=== PATIENT | female | born 1980 | race Caucasian/White ===

== ENCOUNTER 2016-11-07 17:43 | Emergency (ER) | payer SELFPAY ==
[~2016-11-07] VITALS: Ht 167.6 cm; Wt 106.1 kg
[~2016-11-07 17:43] MED LIST: AC500T PO; ACHD5005 PO; DCS100C PO; DULO30CA; HYDR-89 PO; HYDR115S2 PO; HYDROXYZINE; IBP600T1 PO; IBP800T PO; NITR-65 PO; OXYC-12 PO; PRD20T PO; PREN-102 PO; PREN1TAB39; PREN1TAB39 PO; RT-ALBUINH IH; SULF1TAB38 PO; TRAZ50TA67; [UNRECOGNIZED DRUG - OTHER]
--- OUTSIDE RECORDS SUMMARY | 2016-11-07 17:48 | XMS REPORT ---
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
--- OUTSIDE RECORDS SUMMARY | 2016-11-07 17:48 | XMS REPORT ---
Author Author SHIVA LANCE Organization 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 160401623 ALLERGIES Substance Reaction Event Type Date Status Keflex hives Drug Allergy Jan, Active Azithromycin Unknown Drug Allergy Jan, Active Amoxicillin Unknown Drug Allergy Jan, Active Latex Unknown Non Drug Allergy Jan, Active SOCIAL HISTORY No smoking Hx information available PLAN OF CARE Activity Details Follow Up Will call with results for f.u plan Reason: VITAL SIGNS Height 66 in 2016-02-07 Weight 231.0 lbs 2016-02-07 Temperature 98.0 degrees Fahrenheit 2016-02-07 Heart Rate 76 bpm 2016-02-07 Respiratory Rate 18 2016-02-07 BMI 37.28 kg/m2 2016-02-07 Blood pressure systolic 118 mmHg 2016-02-07 Blood pressure diastolic 70 mmHg 2016-02-07 MEDICATIONS Unknown Medications RESULTS Name Result Date Reference Range TEST, URINE (IN HOUSE) 2016-02-07 RESULTS negative Lot # [id number] Control + Exp date 05/2017 PDF Report 2016-02-07 PDF Report1 [facility] PATHOLOGY REPORT 2016-02-07 . . . . Comment: . . . . . PROCEDURES Procedure Date Ordered Related Diagnosis Body Site URINE TEST Feb 07, 2016 ENDOCERV CURETTAGE W/SCOPE Feb 07, 2016 IMMUNIZATIONS No Known Immunizations
--- OUTSIDE RECORDS SUMMARY | 2016-11-07 17:48 | XMS REPORT ---
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 Problem Special screening examination, human papillomavirus [HPV] V73.81 Active Problem 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 and of unspecified site 079.4 Active Problem Screening for iron deficiency anemia V78.0 Active Problem Papanicolaou smear of cervix with high grade squamous intraepithelial lesion (HGSIL) 795.04 Active Problem DTAP TEST V06.1 Active Problem Insufficient care V23.7 Active Problem Unspecified and placental problem affecting management of mother , unspecified as to episode of care 656.90 Active Problem Screening for diabetes mellitus V77.1 Active Problem Diarrhea 787.91 Active Problem Screening examination for venereal disease V74.5 Active Assessment Asthma with acute exacerbation, unspecified asthma severity J45.901 Active Problem Screening for malignant neoplasm of the cervix V76.2 Active Problem Nausea with vomiting 787.01 Active Problem Unspecified vaginitis and vulvovaginitis 616.10 Active Medications Medication Code System Code Instructions Start Date End Date Status Dosage Albuterol Sulfate [facility] [address]-23 (2.5 MG/3ML) 0.083% Inhalation every 4- 6 hours as needed Oct 30, 2015 3 ml Singulair [facility] [address]-19 10 mg Orally Once a day Oct 30, 2015 1 tablet in the evening Albuterol Sulfate HFA [facility] [address]-49 108 (90 Base) MCG/ACT Inhalation every 4 hrs prn Mar 08, 2015 2 puffs as needed Pulmicort Flexhaler [facility] [address]-70 180 MCG/ACT Inhalation Twice a day Oct 30, 2015 1 puff Zyrtec Allergy [facility] [address]-16 10 mg Orally Once a day in AM Oct 30, 2015 1 tablet PredniSONE [facility] [address]-33 10 mg Orally twice a day x 3 days. 3 tablet Procedures Procedure Coding System Code Date NEB/MDI RX INITIAL CPT-4 95720 Oct 30, 2015 Office Visit, Est Pt., Level 3 CPT-4 71717 Oct 30, 2015 MEASURE BLOOD OXYGEN LEVEL CPT-4 75639 Oct 30, 2015 Vital Signs Date/Time: Oct 30, 2015 Cardiac Monitoring Heart Rate 68 bpm Weight 229.8 lbs Height 66 in BMI 37.09 Index Oximetry 97 % Blood Pressure Diastolic 80 mmHg Blood Pressure Systolic 120 mmHg Results Name Result Date Reference Range Unit Abnormality Flag NEBULIZER TREATMENT Summary Purpose [employer] Submission
--- OUTSIDE RECORDS SUMMARY | 2016-11-07 17:48 | XMS REPORT ---
Author Author SHIVA LANCE [facility] [employer] Address Unknown Phone Unavailable Care Team Providers Care Textile Screen Printer Name Role Phone SHIVA LANCE CP Unavailable Allergies, Adverse Reactions, Alerts Substance [...] Problem Screening for diabetes mellitus V77.1 Active Assessment History of abnormal cervical Pap smear Z87.898 Active Problem Diarrhea 787.91 Active Problem Screening examination for venereal disease V74.5 Active Assessment Well woman exam with routine gynecological exam Z01.419 Active Problem Screening for malignant neoplasm of the cervix V76.2 Active Problem Nausea with vomiting 787.01 Active Problem Unspecified vaginitis and vulvovaginitis 616.10 Active Medications Medication Code System Code Instructions Start Date End Date Status Dosage Albuterol Sulfate HFA [facility] [address]-35 108 (90 Base) MCG/ACT Inhalation every 4 hrs prn Mar 08, 2015 2 puffs as needed Singulair [facility] [address]-63 10 mg Orally Once a day Oct 30, 2015 1 tablet in the evening Procedures Procedure Coding System Code Date Preventive Care Est Pt. Age 18-39 CPT-4 06766 Dec 06, 2015 Vital Signs Date/Time: Dec 06, 2015 Cardiac Monitoring Heart Rate 82 bpm Weight 226 lbs Height 66 in BMI 36.47 Index Blood Pressure Diastolic 70 mmHg Blood Pressure Systolic 108 mmHg Results No Known Results Summary Purpose [employer] Submission
--- OUTSIDE RECORDS SUMMARY | 2016-11-07 17:48 | XMS REPORT ---
Author Author SHIVA LANCE [facility] [employer] Address Unknown Phone Unavailable Care Team Providers Care Wireline Supervisor Name Role Phone SHIVA LANCE CP Unavailable [...] examination for venereal disease V74.5 Active Assessment Contact dermatitis, unspecified contact dermatitis type, unspecified trigger L25.9 Active Problem Screening for malignant neoplasm of the cervix V76.2 Active Problem Nausea with vomiting 787.01 Active Problem Unspecified vaginitis and vulvovaginitis 616.10 Active Medications Medication Code System Code Instructions Start Date End Date Status Dosage PredniSONE [facility] [address]-14 20 MG Orally Once a day Nov 22, 2015 Nov 27, 2015 2 tablet Albuterol Sulfate HFA [facility] [address]-64 108 (90 Base) MCG/ACT Inhalation every 4 hrs prn Mar 08, 2015 2 puffs as needed Singulair [facility] [address]-99 10 mg Orally Once a day Oct 30, 2015 1 tablet in the evening Procedures Procedure Coding System Code Date Office Visit, Est Pt., Level 3 CPT-4 53088 Nov 22, 2015 Vital Signs Date/Time: Nov 22, 2015 Cardiac Monitoring Heart Rate 90 bpm Weight 231 lbs Height 66 in BMI 37.28 Index Blood Pressure Diastolic 80 mmHg Blood Pressure Systolic 114 mmHg Results No Known Results Summary Purpose [employer] Submission
--- OUTSIDE RECORDS SUMMARY | 2016-11-07 17:48 | XMS REPORT ---
Author Author REYNA FIGUEROA [facility] [employer] Address Unknown Phone Unavailable Care Team Providers Care Tower Supervisor Name Role Phone REYNA FIGUEROA CP Unavailable Allergies, Adverse Reactions, Alerts Substance Reaction Event Type Azithromycin Info Not Available Drug Allergy Amoxicillin [...] Screening for diabetes mellitus V77.1 Active Assessment Upper respiratory tract infection, unspecified upper respiratory infection J06.9 Active Assessment Acute mucoid otitis media of both ears H65.113 Active Problem Diarrhea 787.91 Active Problem Screening examination for venereal disease V74.5 Active Assessment Irregular menses N92.6 Active Problem Screening for malignant neoplasm of the cervix V76.2 Active Problem Nausea with vomiting 787.01 Active Problem Unspecified vaginitis and vulvovaginitis 616.10 Active Medications Medication Code System Code Instructions Start Date End Date Status Dosage Doxycycline Hyclate [facility] [address]-05 100 MG Orally every 12 hrs Nov 25, 2014 Dec 09, 2014 1 capsule Promethazine-Codeine [facility] [address]-23 6.25-10 MG/5ML Orally every 6 hrs Nov 25, 2014 5 ml as needed Procedures Procedure Coding System Code Date Office Visit, Est Pt., Level 3 CPT-4 47210 Nov 25, 2014 URINE TEST CPT-4 30121 Nov 25, 2014 Vital Signs Date/Time: Nov 25, 2014 Temperature 98.0 F Weight 246.1 lbs Height 66 in BMI 39.72 Index Blood Pressure Diastolic 84 mmHg Blood Pressure Systolic 120 mmHg Cardiac Monitoring Heart Rate 90 bpm Results No Known Results Summary Purpose [employer] Submission
[2016-11-07 18:47] LABS: BILIRUBIN,URINE NEGATIVE (NEGATIVE); KETONES,URINE NEGATIVE (NEGATIVE); LEUKOCYTE ESTERASE ,URINE 2+ (NEGATIVE); NITRITE,URINE NEGATIVE (NEGATIVE); PH,URINE 5 (5-9); PROTEIN,URINE 1+ (NEGATIVE); UROBILINOGEN,URINE 1 MG/DL (NORMAL)
[2016-11-07 18:58] LABS: SQUAMOUS EPITHELIAL CELL,UR 25-50 /HPF
--- NOTE | 2016-11-07 20:01 | ED GU-Female ---
General Chief Complaint: Abdominal/GI Problems Stated Complaint: STOMACH PAIN Nursing Triage Note: Pt c/o lower abd pain and nausea x4 hours Nursing Sepsis Screen: No Definite Risk Source: patient Exam Limitations: no limitations History of Present Illness Time seen by provider: 20:01 Initial Comments 36 yo female patient presents to the ED with c/o lower abdominal pain and nausea for 4 hours. Patient states she had a positive test a while back, but states she thought this was related to her thyroid function in the abnormal. Does c/o frequency of urine. Timing/Duration: this afternoon Severity/Quality: cramping Location: suprapubic Radiation: none Activities at Onset: none Prior Genitourinary Problems: similar symptoms Modifying Factors: Worsens With Eating, Worsens With Urinating Allergies and Home Medications Allergies Coded Allergies: amoxicillin (Verified Allergy, Unknown, 08/20/05) cephalexin (Verified Allergy, Unknown, 08/20/05) latex (Verified Allergy, Unknown, 05/31/07) Home Medications Albuterol Sulfate 6.7 Gm Hfa.aer.ad, 6.7 GM IH Q4H PRN for COUGH/DYSPNEA, #1 Ref 0 Prescribed by: LINDA FOX on 10/23/152303 Hydrocodone/Chlorphen P-Stirex 480 Ml [place].er.12h, 5 ML PO Q12H PRN for COUGH, # 120 Ref 0 Prescribed by: LINDA FOX on 10/23/15 230 Nitrofurantoin Monohyd/M-Cryst 100 Mg Capsule, 1 TAB PO BID, #14 Ref 0 Prescribed by: SARAH CASAREZ on 11/07/162130 Prednisone 20 Mg Tab, 30 MG PO BID for 5 Days, Ref 0 Prescribed by: LINDA FOX on 10/23/15 2304 Vits #93/Iron Fum/Fa 1 Each Tablet, 1 EACH PO, (Reported) Constitutional: No chills, No dizziness, No fever, No malaise EENTM: no symptoms reported Respiratory: No cough, No dyspnea on exertion, No short of breath Cardiovascular: No chest pain, No palpitations, No syncope Gastrointestinal: abdominal pain, No constipation, No diarrhea, nausea, No vomiting Genitourinary: denies burning, denies discharge, denies dysuria, frequency, denies flank pain, denies hematuria, denies other (denies vaginal bleeding) Musculoskeletal: No back pain Skin: no symptoms reported Psychiatric/Neurological: No Symptoms Reported All Other Systemes Reviewed Negative Unless Noted: Yes (Negative excepted noted.) Past [id number]-[id number] Hx Patient Social History Type Used: Cigarettes Recent Foreign Travel: No Contact w/Someone Who Travel: No Recent Infectious Disease Expo: No Recent Hopitalizations: No Immunizations Up To Date Tetanus Booster (TDap): Less than 5yrs PED Vaccines UTD: Yes Seasonal Allergies Seasonal Allergies: No Surgeries History of Surgeries: Yes Respiratory History of Respiratory Disorde: Yes Respiratory Disorders: Asthma Cardiovascular History of Cardiac Disorders: No Neurological History of Neurological Disord: No Reproductive System Hx Reproductive Disorders: No Sexually Transmitted Disease: No Genitourinary History of Genitourinary Disor: No Gastrointestinal History of Gastrointestinal Di: No Musculoskeletal History of Musculoskeletal Dis: No Endocrine History of Endocrine Disorders: No Blood Transfusions Adverse Reaction to a Blood Tr: No Reviewed Nursing Assessment Reviewed/Agree w Nursing PMH: Yes Family Medical History Significant Family History: No Pertinent Family Hx Family Medial History: Cancer (breast cancer- fathers side) Family history: Cardiovascular disease (paternal grandfather) Stroke (maternal grandfather) Physical Exam Vital Signs Vital Sign - Last 12Hours 11/07/16 18:30 Temp 98.9 Pulse 88 Resp 18 B/P (MAP) 125/64 Pulse Ox 98 O2 Delivery Room Air Capillary Refill : Less Than 3 Seconds General Appearance: WD/WN, no apparent distress HEENT: PERRL/EOMI, pharynx normal Neck: supple, normal inspection Cardiovascular: normal peripheral pulses, regular rate, rhythm, no edema, no murmur Respiratory: lungs clear, normal breath sounds, no respiratory distress, no accessory muscle use Gastrointestinal: normal bowel sounds, soft, no organomegaly, No distended, No guarding, No rebound, tenderness (lower abdominal tenderness.) Back: normal inspection, no CVA tenderness Extremities: no pedal edema, no calf tenderness, normal capillary refill Neurologic/Psychiatric: alert, normal mood/affect, oriented x 3 Skin: normal color, warm/dry Progress/Results/Core Measures Results/Orders Lab Results My Orders Vital Signs/I&O Blood Pressure Mean: 84 Departure Communication (Admissions) Progress Notes Laboratory findings discussed with the patient. heart tones 140. Plan for discharge to home with oral antibiotics. Patient instructed to contact Dr. Artis's office for scheduling an appointment time to establish care. All return precautions were discussed with the patient as described in the discharge instructions of this report. Patient voices understanding and agrees with the treatment plan. Impression Impression: Primary Impression: Urinary tract infection Qualified Codes: N30.00 - Acute cystitis without hematuria Additional Impressions: Lower abdominal pain Positive test Disposition: HOME, SELF-CARE Condition: Improved Departure-Patient Inst. Decision time for Depature: 21:30 Referrals: SHIVA LANCE MD (PCP/Family) Primary Care Physician ALESSIO ARTIS DO Patient Instructions: How to Plan and Prepare for a Healthy , Urinary Tract Infection, Adult (DC), Acute Abdomen (Belly Pain), Adult (DC) Add. Discharge Instructions: All discharge instructions reviewed with patient and/or family. Voiced understanding. Medications as instructed. Tylenol Extra Strength over-the- counter as directed for pain. Drink plenty of fluids. Follow-up with Dr. Artis as an outpatient for a recheck and to establish care. Follow-up with Dr. Fox is an outpatient. Call for appointment time Thursday. Return to the emergency department for worsened pain, vomiting, fever, vaginal bleeding with greater than 2 pads per hour for greater than 2 hours, vaginal discharge, or any other concerns. Scripts Nitrofurantoin Monohyd/M-Cryst (Macrobid 100 mg Capsule) 100 Mg Capsule 1 TAB PO BID, #14 CAP 0 Refills Prov: SARAH CASAREZ 11/07/16 SARAH CASAREZ Nov 07, 2016 20:01
[2016-11-07 20:16] LABS: BASOPHILS % (AUTO) 1 % (0-10); EOSINOPHILS # (AUTO) 0.2 10^3/uL (0.0-0.3); EOSINOPHILS % (AUTO) 3 % (0-10); LYMPHOCYTES # (AUTO) 1.8 X 10^3 (1.0-4.0); LYMPHOCYTES % (AUTO) 29 % (12-44); MEAN CORPUSCULAR HEMOGLOBIN 29 PG (25-34); MEAN CORPUSCULAR HGB CONC 33 G/DL (32-36); MEAN CORPUSCULAR VOLUME 87 FL (80-99); MEAN PLATELET VOLUME 10.8 FL (7.4-10.4); MONOCYTES # (AUTO) 0.6 X 10^3 (0.0-1.0); MONOCYTES % (AUTO) 9 % (0-12); NEUTROPHILS # (AUTO) 3.7 X 10^3 (1.8-7.8); NEUTROPHILS % (AUTO) 60 % (42-75); PLATELET COUNT 267 10^3/uL (130-400); RED BLOOD COUNT 4.54 10^6/uL (4.35-5.85); RED CELL DISTRIBUTION WIDTH 14.2 % (10.0-14.5); WHITE BLOOD COUNT 6.3 10^3/uL (4.3-11.0)
[2016-11-07 20:28] LABS: ALANINE AMINOTRANSFERASE 21 U/L (0-55); ALBUMIN 3.7 GM/DL (3.2-4.5); ANION GAP 9 MMOL/L (5-14); ASPARTATE AMINO TRANSFERASE 16 U/L (5-34); BILIRUBIN,TOTAL 0.2 MG/DL (0.1-1.0); BLOOD UREA NITROGEN 8 MG/DL (7-18); BUN/CREATININE RATIO 12; CALCIUM 8.9 MG/DL (8.5-10.1); CARBON DIOXIDE 21 MMOL/L (21-32); CHLORIDE 107 MMOL/L (98-107); CREATININE SERUM 0.68 MG/DL (0.60-1.30); GFR ESTIMATED > 60; GLUCOSE 78 MG/DL (70-105); POTASSIUM 4.2 MMOL/L (3.6-5.0); SODIUM 137 MMOL/L (135-145); TOTAL PROTEIN 6.9 GM/DL (6.4-8.2)
[2016-11-07] MEDS ORDERED: NITR-65 PO (21:31)
[2016-11-07] MEDS ORDERED: ACETAMINOPHEN 500 MG TAB (TYLENOL) PO STA (21:32)
[2016-11-07] MEDS ORDERED: RX-NITROFURANTOIN 100 MG (MACROBID) CAP PPK#2 PO STA (21:32)
[2016-11-07 21:41] VITALS: BP 121/68
== END 2016-11-07 21:41 | disposition home or self-care (01) ==
LOC: EDUNIT# 17:43 → ER 17:44
DX: O23.40 Unspecified infection of urinary tract in pregnancy, unspecified trimester (principal); O99.519 Diseases of the respiratory system complicating pregnancy, unspecified trimester; J45.909 Unspecified asthma, uncomplicated
CPT/HCPCS: 36415; 80053; 81000; 84443; 84702; 84703; 85025; 87088; 99283

== ENCOUNTER 2016-11-16 17:58 | Emergency (ER) | payer MEDICAID, OTHER ==
[~2016-11-16] VITALS: Ht 167.6 cm; Wt 106.3 kg
--- NOTE | 2016-11-16 19:01 | ED General ---
General Chief Complaint: General Problems/Pain Stated Complaint: 12 WKS PREG/FALL/HEAD INJ Nursing Triage Note: PT SO REPORTS THAT PT WAS TAKING A NAP AND WHEN SHE WOKE UP SHE WAS "INCOHERENT". HE STATES SHE THEN GOT UP TO GO TO THE BATHROOM WHEN HE HEARD A LOUD NOISE. HE WENT TO THE BATHROOM AND HE REPORTS PT WAS ON THE FLOOR. HE STATES THAT SINCE THEN PT CONTINUES TO BE "INCOHERENT". PT STANDS FROM WHEELCHAIR AND GETS IN BED. PT IS A&O X 4, BUT REFUSES TO SPEAK TO THIS RN. SO ALSO REPORTS PT TO BE APPROX 12 WEEKS . Nursing Sepsis Screen: No Definite Risk Source of Information: Patient Exam Limitations: No Limitations History of Present Illness Time Seen by Provider: 18:45 Initial Comments Here with report of waking up feeling bad and actually states that she's had sore throat for 3 days. Apparently after she got up she went to the bathroom and then may have passed out. The significant other states that he heard a loud sound and went to the bathroom and found her lying on the floor. She complains of left posterior head pain, sore throat and lower abdominal pain. She initially did not want to talk but was redirected into talking and participating in the evaluation. Patient's main complaint of sore throat now. This is her 10th per report. Denies vaginal discharge or bleeding. Timing/Duration: 2-3 Days, Changing Over Time Severity: Moderate Associated Systoms: No Chest Pain, No Cough, No Fever/Chills, No Nausea/ Vomiting, No Shortness of Air, Syncope, Weakness Allergies and Home Medications Allergies Coded Allergies: amoxicillin (Verified Allergy, Unknown, 08/20/05) cephalexin (Verified Allergy, Unknown, 08/20/05) latex (Verified Allergy, Unknown, 05/31/07) Home Medications Albuterol Sulfate 6.7 Gm Hfa.aer.ad, 6.7 GM IH Q4H PRN for COUGH/DYSPNEA, #1 Ref 0 Prescribed by: LINDA JOY on 10/23/15 2304 Hydrocodone/Chlorphen P-Stirex 480 Ml [place].er.12h, 5 ML PO Q12H PRN for COUGH, # 120 Ref 0 Prescribed by: LINDA JOY on 10/23/15 2305 Nitrofurantoin Monohyd/M-Cryst 100 Mg Capsule, 1 TAB PO BID, #14 Ref 0 Prescribed by: SARAH CASAREZ on 11/07/162130 Prednisone 20 Mg Tab, 30 MG PO BID for 5 Days, Ref 0 Prescribed by: LINDA JOY on 10/23/15 2304 Vits #93/Iron Fum/Fa 1 Each Tablet, 1 EACH PO, (Reported) Constitutional: see HPI, No chills, No fever EENTM: nose congestion, throat pain Respiratory: no symptoms reported Cardiovascular: no symptoms reported Gastrointestinal: abdominal pain (LLQ), No nausea, No vomiting Genitourinary: no symptoms reported, No dysuria, No pain Musculoskeletal: no symptoms reported Skin: no symptoms reported Psychiatric/Neurological: See HPI, Headache, Weakness Hematologic/Lymphatic: No Symptoms Reported All Other Systems Reviewed Negative Unless Noted: Yes Past Uwnyxmo-Vhmzrj-Isshob Hx Patient Social History Alcohol Use: Denies Use Recreational Drug Use: No Smoking Status: Current Everyday Smoker Type Used: Cigarettes Recent Foreign Travel: No Contact w/Someone Who Travel: No Recent Infectious Disease Expo: No Recent Hopitalizations: No Physical Abuse: No Sexual Abuse: No Immunizations Up To Date Tetanus Booster (TDap): Less than 5yrs PED Vaccines UTD: Yes Seasonal Allergies Seasonal Allergies: No Surgeries History of Surgeries: Yes ("KIDNEY") Respiratory History of Respiratory Disorde: Yes Respiratory Disorders: Asthma Cardiovascular History of Cardiac Disorders: No Neurological History of Neurological Disord: No Reproductive System Hx Reproductive Disorders: No Sexually Transmitted Disease: No Genitourinary History of Genitourinary Disor: No Gastrointestinal History of Gastrointestinal Di: No Musculoskeletal History of Musculoskeletal Dis: No Endocrine History of Endocrine Disorders: No Cancer History of Cancer: No Psychosocial History of Psychiatric Problem: No Suicide Risk Score: 0 Blood Transfusions History of Blood Disorders: No Adverse Reaction to a Blood Tr: No Reviewed Nursing Assessment Reviewed/Agree w Nursing PMH: Yes Family Medical History Significant Family History: No Pertinent Family Hx Family Medial History: Cancer (breast cancer- fathers side) Family history: Cardiovascular disease (paternal grandfather) Stroke (maternal grandfather) Physical Exam Vital Signs Vital Sign - Last 12Hours 11/16/16 18:23 Temp 97.1 Pulse 88 Resp 16 B/P (MAP) 123/76 Pulse Ox 99 O2 Delivery Room Air Capillary Refill : Less Than 3 Seconds General Appearance: No Apparent Distress, WD/WN HEENT: PERRL/EOMI, Pharyngeal Erythema, No Tonsillar Exudate, Other (no scalp hematoma or abrasion noted.) Neck: Non Tender, Supple Respiratory: Lungs Clear, Normal Breath Sounds Cardiovascular: Regular Rate, Rhythm, No Murmur Gastrointestinal: Non Tender, Soft Back: Normal Inspection, No CVA Tenderness, No Vertebral Tenderness Extremity: Non Tender, No Calf Tenderness Neurologic/Psychiatric: Alert, Oriented x3, No Motor/Sensory Deficits Skin: Normal Color, Warm/Dry Progress/Results/Core Measures Results/Orders Lab Results Laboratory Tests Test 11/16/16 18:56 11/16/16 19:00 11/16/16 19:10 Range/Units Group A Streptococcus Screen NEGATIVE NEGATIVE Urine Color YELLOW Urine Clarity CLEAR Urine pH 7 5-9 Urine Specific [place] 1.015 L 1.016-1.022 Urine Protein NEGATIVE NEGATIVE Urine Glucose (UA) NEGATIVE NEGATIVE Urine Ketones NEGATIVE NEGATIVE Urine Nitrite NEGATIVE NEGATIVE Urine Bilirubin NEGATIVE NEGATIVE Urine Urobilinogen NORMAL NORMAL MG/DL Urine Leukocyte Esterase 1+ H NEGATIVE Urine RBC (Auto) NEGATIVE NEGATIVE Urine RBC NONE /HPF Urine WBC 2-5 /HPF Urine Squamous Epithelial Cells 25-50 H /HPF Urine Crystals NONE /LPF Urine Bacteria MODERATE H /HPF Urine Casts NONE /LPF Urine Mucus NEGATIVE /LPF Urine Culture Indicated NO White Blood Count 6.7 4.3-11.0 10^3/uL Red Blood Count 4.64 4.35-5.85 10^6/uL Hemoglobin 13.3 11.5-16.0 G/DL Hematocrit 40 35-52 % Mean Corpuscular Volume 86 80-99 FL Mean Corpuscular Hemoglobin 29 25-34 PG Mean Corpuscular Hemoglobin Concent 33 32-36 G/DL Red Cell Distribution Width 14.3 10.0-14.5 % Platelet Count 275 130-400 10^3/uL Mean Platelet Volume 10.3 7.4-10.4 FL Neutrophils (%) (Auto) 66 42-75 % Lymphocytes (%) (Auto) 25 12-44 % Monocytes (%) (Auto) 7 0-12 % Eosinophils (%) (Auto) 3 0-10 % Basophils (%) (Auto) 0 0-10 % Neutrophils # (Auto) 4.4 1.8-7.8 X 10^3 Lymphocytes # (Auto) 1.7 1.0-4.0 X 10^3 Monocytes # (Auto) 0.5 0.0-1.0 X 10^3 Eosinophils # (Auto) 0.2 0.0-0.3 10^3/uL Basophils # (Auto) 0.0 0.0-0.1 10^3/uL Sodium Level 138 135-145 MMOL/L Potassium Level 3.8 3.6-5.0 MMOL/L Chloride Level 107 98-107 MMOL/L Carbon Dioxide Level 20 L 21-32 MMOL/L Anion Gap 11 5-14 MMOL/L Blood Urea Nitrogen 7 7-18 MG/DL Creatinine 0.66 0.60-1.30 MG/DL Estimat Glomerular Filtration Rate > 60 BUN/Creatinine Ratio 11 Glucose Level 83 70-105 MG/DL Calcium Level 9.3 8.5-10.1 MG/DL Total Bilirubin 0.2 0.1-1.0 MG/DL Aspartate Amino Transf (AST/SGOT) 17 5-34 U/L Alanine Aminotransferase (ALT/SGPT) 21 0-55 U/L Alkaline Phosphatase 68 40-136 U/L Total Protein 7.0 6.4-8.2 GM/DL Albumin 3.7 3.2-4.5 GM/DL My Orders Orders - LEROY WHITE MD Cbc With Automated Diff (11/16/16 18:59) Comprehensive Metabolic Panel (11/16/16 18:59) Rapid Strep A Screen (11/16/16 18:59) Ua Culture If Indicated (11/16/16 18:59) Vital Signs/I&O Vital Sign - Last 12Hours 11/16/16 18:23 Temp 97.1 Pulse 88 Resp 16 B/P (MAP) 123/76 Pulse Ox 99 O2 Delivery Room Air Blood Pressure Mean: 92 Progress Note : Progress Note Seen and evaluated. Lab draw done. Rapid strep and UA ordered. Bedside ultrasound performed by me which shows fetus with positive movement and heart rate of 165 and approximately 13-2/7 via femur length. There is a lot of movement which limited measurement. Dates are close to patient's stated via last menstrual period. Monitor patient. 1944: Overall there is no acute findings on any of the evaluation data. She is doing much better now. The believes she probably has a viral URI. Supportive care indicated. This was discussed with the patient and family. Discharged home with return precautions. Patient verbalize understanding instructions and agreement with plan. Departure Impression Impression: Primary Impression: Upper respiratory infection Qualified Codes: J06.9 - Acute upper respiratory infection, unspecified Additional Impression: Syncope Qualified Codes: R55 - Syncope and collapse Disposition: HOME, SELF-CARE Condition: Improved Departure-Patient Inst. Referrals: ALESSIO ARTIS DO (PCP) Primary Care Physician SHIVA LANCE MD (Family) Primary Care Physician Patient Instructions: Viral Pharyngitis (DC), Viral Upper Respiratory Infection, Child (DC) Add. Discharge Instructions: All discharge instructions reviewed with patient and/or family. Voiced understanding. Drink plenty of fluids. You may take Tylenol 1000 mg every 8 hours as needed for pain. You may take Benadryl 25 mg every 6 hours as needed for nasal congestion. Follow-up with Dr. Artis in one to 2 days for recheck and further evaluation. Return for worse pain, fever, vomiting, weakness, breathing problems or other concerns as needed. Copy Copies To 1: ALESSIO ARTIS TIMOTHY D MD Nov 16, 2016 19:01
[2016-11-16 19:20] LABS: BILIRUBIN,URINE NEGATIVE (NEGATIVE); KETONES,URINE NEGATIVE (NEGATIVE); LEUKOCYTE ESTERASE ,URINE 1+ (NEGATIVE); NITRITE,URINE NEGATIVE (NEGATIVE); PH,URINE 7 (5-9); PROTEIN,URINE NEGATIVE (NEGATIVE); UROBILINOGEN,URINE NORMAL (NORMAL)
[2016-11-16 19:21] LABS: BASOPHILS % (AUTO) 0 % (0-10); EOSINOPHILS # (AUTO) 0.2 10^3/uL (0.0-0.3); EOSINOPHILS % (AUTO) 3 % (0-10); LYMPHOCYTES # (AUTO) 1.7 X 10^3 (1.0-4.0); LYMPHOCYTES % (AUTO) 25 % (12-44); MEAN CORPUSCULAR HEMOGLOBIN 29 PG (25-34); MEAN CORPUSCULAR HGB CONC 33 G/DL (32-36); MEAN CORPUSCULAR VOLUME 86 FL (80-99); MEAN PLATELET VOLUME 10.3 FL (7.4-10.4); MONOCYTES # (AUTO) 0.5 X 10^3 (0.0-1.0); MONOCYTES % (AUTO) 7 % (0-12); NEUTROPHILS # (AUTO) 4.4 X 10^3 (1.8-7.8); NEUTROPHILS % (AUTO) 66 % (42-75); PLATELET COUNT 275 10^3/uL (130-400); RED BLOOD COUNT 4.64 10^6/uL (4.35-5.85); RED CELL DISTRIBUTION WIDTH 14.3 % (10.0-14.5); WHITE BLOOD COUNT 6.7 10^3/uL (4.3-11.0)
[2016-11-16 19:33] LABS: SQUAMOUS EPITHELIAL CELL,UR 25-50 /HPF
[2016-11-16 19:39] LABS: ALANINE AMINOTRANSFERASE 21 U/L (0-55); ALBUMIN 3.7 GM/DL (3.2-4.5); ANION GAP 11 MMOL/L (5-14); ASPARTATE AMINO TRANSFERASE 17 U/L (5-34); BILIRUBIN,TOTAL 0.2 MG/DL (0.1-1.0); BLOOD UREA NITROGEN 7 MG/DL (7-18); BUN/CREATININE RATIO 11; CALCIUM 9.3 MG/DL (8.5-10.1); CARBON DIOXIDE 20 MMOL/L (21-32); CHLORIDE 107 MMOL/L (98-107); CREATININE SERUM 0.66 MG/DL (0.60-1.30); GFR ESTIMATED > 60; GLUCOSE 83 MG/DL (70-105); POTASSIUM 3.8 MMOL/L (3.6-5.0); SODIUM 138 MMOL/L (135-145)
[2016-11-16 19:57] VITALS: BP 129/78
== END 2016-11-16 19:57 | disposition home or self-care (01) ==
LOC: EDUNIT# 17:58 → ER 18:00
DX: O99.511 Diseases of the respiratory system complicating pregnancy, first trimester (principal); J06.9 Acute upper respiratory infection, unspecified; J45.909 Unspecified asthma, uncomplicated; O26.891 Other specified pregnancy related conditions, first trimester; R55 Syncope and collapse; O99.331 Smoking (tobacco) complicating pregnancy, first trimester; F17.210 Nicotine dependence, cigarettes, uncomplicated; Z80.3 Family history of malignant neoplasm of breast; Z3A.12 12 weeks gestation of pregnancy
CPT/HCPCS: 36415; 80053; 81000; 85025; 87430; 99283

== ENCOUNTER → 2017-01-19 | Outpatient (CLI) | payer MEDICAID ==
--- NOTE | 2017-01-19 19:12 | Diagnostic Imaging Report ---
INDICATION: survey. TECHNIQUE: Multiple real-time grayscale images were obtained over the gravid uterus. COMPARISON: None during this . FINDINGS: heart rate is 144 beats per minute. The cervix is closed and is 4.7 cm in length. The placenta is anterior. No placenta previa. The amniotic fluid appears adequate. The maternal adnexa are obscured by the gravid uterus. evaluation demonstrates 2 umbilical arteries, the bladder, cord insertion, the kidneys and the stomach. The spine, intracranial structures and four-chamber view are not well evaluated. Biometrical measurements are as follows: Biparietal 4.7 cm, age 20 weeks 2 days, at the 3rd percentile. Head circumference 17.63 cm, age 20 weeks 1 days, less than 2nd percentile. Abdominal circumference 15.35 cm, age 20 weeks 4 days, at the 9th percentile. Femur length 3.32 cm, age 20 weeks 3 days, at 5th percentile. This is based on dating utilizing assigned ÁNGEL of 05/26/17. Sonographic estimate age: 20 weeks 3 days. Sonographic estimated date of delivery: 06-05-17. Estimated Weight: 353 gm (+/- 52 gm). LMP percentile: 3%. heart rate: 144 beats per minute. number: 1 of 1. IMPRESSION: 1. Incomplete survey with poor visualization of the intracranial structures, spine, and four-chamber view on the current exam. Followup is recommended. 2. The growth parameters are near the lower limits of normal based on gestational age utilizing the assigned ÁNGEL of 05/26/17. Dictated by: Dictated on workstation # [id number]
== END ==
LOC: RAD 11:51
PROVIDERS: ATTEND Obstetrics & Gynecology
DX: Z34.92 Encounter for supervision of normal pregnancy, unspecified, second trimester (principal); Z3A.20 20 weeks gestation of pregnancy
CPT/HCPCS: 76805

== ENCOUNTER 2017-01-23 00:21 | Emergency (ER) | payer MEDICAID ==
[~2017-01-23] VITALS: Ht 167.6 cm; Wt 112.5 kg
[~2017-01-23 00:21] MED LIST changes: -LEVO25TA2 PO
--- OUTSIDE RECORDS SUMMARY | 2017-01-23 00:30 | XMS REPORT | Continuity of Care Document ---
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 ANASTASIIA, RUTH ANN A [employer] BOAR[employer] LAMINATOR Ot 641.03 PLACENTA PREVIA-ANTEPART 12/27/2015 THERESE LI DO Ot 641.13 PLACEN PREV HEM-ANTEPART 12/27/2015 THERESE LI DO Ot V23.5 PREG W POOR REPRODUCT HX 12/27/2015 THERESE LI DO Ot V77.1 SCREEN-DIABETES MELLITUS 12/27/2015 THERESE LI DO Ot V78.0 SCREEN-IRON DEFIC ANEMIA 12/28/2015 Ot 640.03 THREATEN ABORT-ANTEPART 12/28/2015 Ot 648.93 OTH CURR COND-ANTEPARTUM 12/28/2015 Ot 959.12 OTH INJURY OF ABDOMEN 12/28/2015 Ot E000.8 OTHER EXTERNAL CAUSE STATUS 12/28/2015 Ot E030 UNSPECIFIED ACTIVITY 12/28/2015 Ot E849.0 ACCIDENT IN HOME 12/28/2015 Ot E885.9 FALL FROM SLIPPING, TRIPPING, OR STUMBLI 12/28/2015 Ot 518.89 OTHER DISEASES OF LUNG, NEC 12/28/2015 Ot 620.2 OVARIAN CYST NEC/NOS 12/28/2015 Ot 789.00 ABDOMINAL PAIN, UNSPECIFIED SITE 12/28/2015 SHIVA LANCE MD Ot R10.30 LOWER ABDOMINAL PAIN, UNSPECIFIED 12/28/2015 SHIVA LANCE MD Ot R10.30 LOWER ABDOMINAL PAIN, UNSPECIFIED 01/02/2016 SHIVA LANCE MD Ot R10.30 LOWER ABDOMINAL PAIN, UNSPECIFIED 01/11/2016 Ot V22.1 SUPERVIS OTH NORMAL PREG 01/11/2016 Ot V22.1 SUPERVIS OTH NORMAL PREG 01/11/2016 THERESE LI DO Ot V23.3 GRAND MULTIPARITY 01/11/2016 THERESE LI DO Ot V28.89 OTHER SPECIFIED SCREENING 01/11/2016 RUTH ANN LAURENT APRN Ot 641.03 PLACENTA PREVIA-ANTEPART 01/11/2016 THERESE LI DO Ot 641.13 PLACEN PREV HEM-ANTEPART 01/11/2016 THERESE LI DO Ot V23.5 PREG W POOR REPRODUCT HX 01/11/2016 THERESE LI DO Ot V77.1 SCREEN-DIABETES MELLITUS 01/11/2016 THERESE LI DO Ot V78.0 SCREEN-IRON DEFIC ANEMIA 01/11/2016 CASI LEY, SHIVA Forrest Ot R10.30 LOWER ABDOMINAL PAIN, UNSPECIFIED 01/11/2016 SUNDAR GEORGE APRN Ot N20.0 CALCULUS OF KIDNEY 01/11/2016 SUNDAR GEORGE APRN Ot R10.31 RIGHT LOWER QUADRANT PAIN 01/14/2016 SUNDAR GEORGE APRN Ot N20.0 CALCULUS OF KIDNEY 01/14/2016 SUNDAR GEORGE APRN Ot R10.31 RIGHT LOWER QUADRANT PAIN 01/21/2016 CASI LEY, SHIVA Forrest Ot R10.30 LOWER ABDOMINAL PAIN, UNSPECIFIED 01/22/2016 Ot 644.03 THRT GLORIA LABOR-ANTEPART 01/29/2016 Ot 285.9 ANEMIA NOS 01/29/2016 Ot 705.83 HIDRADENITIS 01/29/2016 Ot V72.63 PRE- PROCEDURAL LABORATORY EXAMINATION 01/29/2016 Ot V74.8 SCREEN- BACTERIAL DIS NEC 01/29/2016 Ot V22.1 SUPERVIS OTH NORMAL PREG 01/29/2016 Ot V22.1 SUPERVIS OTH NORMAL PREG 01/29/2016 THERESE LI DO Ot V23.3 GRAND MULTIPARITY 01/29/2016 THERESE LI DO Ot V28.89 OTHER SPECIFIED SCREENING 01/29/2016 RUTH ANN LAURENT [employer]AR[employer] LAMINATOR Ot 641.03 PLACENTA PREVIA-ANTEPART 01/29/2016 THERESE LI DO Ot 641.13 PLACEN PREV HEM-ANTEPART 01/29/2016 THERESE LI DO Ot V23.5 PREG W POOR REPRODUCT HX 01/29/2016 THERESE LI DO Ot V77.1 SCREEN-DIABETES MELLITUS 01/29/2016 LI DO, THERESE K Ot V78.0 SCREEN-IRON DEFIC ANEMIA 01/29/2016 CASI LEY, SHIVA R Ot R10.30 LOWER ABDOMINAL PAIN, UNSPECIFIED 01/29/2016 CASI LEY, SHIVA R Ot R10.30 LOWER ABDOMINAL PAIN, UNSPECIFIED 11/07/2016 SHIVA LANCE MD Ot R10.30 LOWER ABDOMINAL PAIN, UNSPECIFIED 11/07/2016 SARAH RASHEED Ot J45.909 UNSPECIFIED ASTHMA, UNCOMPLICATED 11/07/2016 SARAH RASHEED Ot O23.40 UNSP INFECTION OF URINARY TRACT IN PREGN 11/07/2016 SARHA RASHEED Ot O99.519 DISEASES OF THE RESP SYS COMP , 11/07/2016 SARAH RASHEED Ot R10.30 LOWER ABDOMINAL PAIN, UNSPECIFIED 11/07/2016 SHIVA LANCE MD R Ot R10.30 LOWER ABDOMINAL PAIN, UNSPECIFIED 11/11/2016 SARAH RASHEED Ot J45.909 UNSPECIFIED ASTHMA, UNCOMPLICATED 11/11/2016 SARAH RASHEED Ot O23.40 UNSP INFECTION OF URINARY TRACT IN PREGN 11/11/2016 SARAH RASHEED Ot O99.519 DISEASES OF THE RESP SYS COMP , 11/11/2016 SARAH RASHEED Ot R10.30 LOWER ABDOMINAL PAIN, UNSPECIFIED 11/16/2016 SHIVA LANCE MD Ot R10.30 LOWER ABDOMINAL PAIN, UNSPECIFIED 11/16/2016 LEROY WHITE MD Ot F17.210 NICOTINE DEPENDENCE, CIGARETTES, UNCOMPL 11/16/2016 LEROY WHITE MD, Ot J02.9 ACUTE PHARYNGITIS, UNSPECIFIED 11/16/2016 LEROY WHITE MD, Ot J06.9 ACUTE UPPER RESPIRATORY INFECTION, UNSPE 11/16/2016 LEROY WHITE MD, Ot J45.909 UNSPECIFIED ASTHMA, UNCOMPLICATED 11/16/2016 LEROY WHITE MD Ot O26.891 OTH RELATED CONDITIONS, FIRST 11/16/2016 LEROY WHITE MD Ot O99.331 SMOKING (TOBACCO) COMPLICATING 11/16/2016 LEROY WHITE MD Ot O99.511 DISEASES OF THE RESP SYS COMP , 11/16/2016 LEROY WHTIE MD Ot R55 SYNCOPE AND COLLAPSE 11/16/2016 LEROY WHITE MD Ot Z3A.12 12 WEEKS GESTATION OF 11/16/2016 LEROY WHITE MD, Ot Z80.3 FAMILY HISTORY OF MALIGNANT NEOPLASM OF 11/18/2016 LEROY WHITE MD Ot F17.210 NICOTINE DEPENDENCE, CIGARETTES, UNCOMPL 11/18/2016 LEROY WHITE MD Ot J02.9 ACUTE PHARYNGITIS, UNSPECIFIED 11/18/2016 LEROY WHITE MD, Ot J06.9 ACUTE UPPER RESPIRATORY INFECTION, UNSPE 11/18/2016 LEROY WHITE MD, Ot J45.909 UNSPECIFIED ASTHMA, UNCOMPLICATED 11/18/2016 LEROY WHITE MD, Ot O26.891 OTH RELATED CONDITIONS, FIRST 11/18/2016 LEROY WHITE MD Ot O99.331 SMOKING (TOBACCO) COMPLICATING 11/18/2016 LEROY WHITE MD Ot O99.511 DISEASES OF THE RESP SYS COMP , 11/18/2016 LEROY WHITE MD Ot R55 SYNCOPE AND COLLAPSE 11/18/2016 LEROY WHITE MD Ot Z3A.12 12 WEEKS GESTATION OF 11/18/2016 LEROY WHITE MD, Ot Z80.3 FAMILY HISTORY OF MALIGNANT NEOPLASM OF 01/20/2017 ALESSIO ARTIS DO Ot Z34.92 ENCNTR FOR SUPRVSN OF NORMAL PREG, UNSP, 01/20/2017 ALESSIO ARTIS DO Ot Z3A.20 20 WEEKS GESTATION OF Procedures Code Description Performed By Performed On 73.59 MANUAL ASSIST DELIV NEC 08/20/2005 73.59 MANUAL ASSIST DELIV NEC 06/01/2007 73.59 MANUAL ASSIST DELIV NEC 11/29/2008 73.59 MANUAL ASSIST DELIV NEC 02/15/2010 73.09 ARTIF RUPT MEMBRANES NEC 08/06/2011 73.59 MANUAL ASSIST DELIV NEC 08/06/2011 58269 PAP SMEAR 11/23/2012 Q0091 PAP SMEAR OBTAIN SMEAR 11/23/2012 51971 URINE TEST (IN- HOUSE) 11/23/2012 16644 UA OB DIP 12/27/2012 85007 COLPOSCOPY 01/10/2013 89720 GC/CHLAM URINE (STATE) 01/10/2013 74936 UA OB DIP 01/10/2013 31977 CULTURE UROGENITAL 01/11/2013 05570 ROUTINE VENIPUNCTURE 02/07/2013 08449 UA OB DIP 02/07/2013 TETRA TETRA SCREEN 02/11/2013 50011 OB - COMPLETE >14 WEEKS 02/14/2013 84037 OB - FOLLOW UP 03/08/2013 55158 UA W/ CULTURE IF INDICATED 03/08/2013 35172 ROUTINE VENIPUNCTURE 04/11/2013 41820 UA OB DIP 04/11/2013 12658 US OB - FOLLOW UP 04/11/2013 83057 CBC 04/12/2013 36544 GLUCOSE SILVER 1 HOUR 04/12/2013 79676 UA OB DIP 06/13/2013 72496 URINE DRUG SCREEN (IN-HOUSE ) 06/13/2013 84710 CULTURE GROUP B STREP VAG 06/16/2013 73.59 MANUAL ASSIST DELIV NEC 07/01/2013 Results Test Result Range Complete blood count (CBC) with automated white blood cell (WBC) differential - 10/23/15 21:12 Blood leukocytes automated count (number/volume) 6.0 10*3/uL 4.3-11.0 Blood erythrocytes automated count (number/volume) 4.54 10*6/uL 4.35-5.85 Venous blood hemoglobin measurement (mass/volume) 13.1 g/dL 11.5-16.0 Blood hematocrit (volume fraction) 39 % 35-52 Automated erythrocyte mean corpuscular volume 87 [foz_us] 80-99 Automated erythrocyte mean corpuscular hemoglobin (mass per erythrocyte) 29 pg 25-34 Automated erythrocyte mean corpuscular hemoglobin concentration measurement ( mass/volume) 33 g/dL 32-36 Automated erythrocyte distribution width ratio 14.9 % 10.0-14.5 Automated blood platelet count (count/volume) 249 10*3/uL 130-400 Automated blood platelet mean volume measurement 11.3 [foz_us] 7.4-10.4 Automated blood neutrophils/100 leukocytes 61 % 42-75 Automated blood lymphocytes/100 leukocytes 26 % 12-44 Blood monocytes/100 leukocytes 10 % 0-12 Automated blood eosinophils/100 leukocytes 2 % 0-10 Automated blood basophils/100 leukocytes 1 % 0-10 Blood neutrophils automated count (number/volume) 3.6 10*3 1.8-7.8 Blood lymphocytes automated count (number/volume) 1.6 10*3 1.0-4.0 Blood monocytes automated count (number/volume) 0.6 10*3 0.0-1.0 Automated eosinophil count 0.1 10*3/uL 0.0-0.3 Automated blood basophil count (count/volume) 0.1 10*3/uL 0.0-0.1 Comprehensive metabolic panel - 10/23/15 21:12 Serum or plasma sodium measurement (moles/volume) 142 mmol/L 135-145 Serum or plasma potassium measurement (moles/volume) 3.5 mmol/L 3.6-5.0 Serum or plasma chloride measurement (moles/volume) 112 mmol/L 98-107 Carbon dioxide 17 mmol/L 21-32 Serum or plasma anion gap determination (moles/volume) 13 mmol/L 5-14 Serum or plasma urea nitrogen measurement (mass/volume) 7 mg/dL 7-18 Serum or plasma creatinine measurement (mass/volume) 0.72 mg/dL 0.60-1.30 Serum or plasma urea nitrogen/creatinine mass ratio 10 NRG Serum or plasma creatinine measurement with calculation of estimated glomerular filtration rate > NRG Serum or plasma glucose measurement (mass/volume) 82 mg/dL 70-105 Serum or plasma calcium measurement (mass/volume) 9.0 mg/dL 8.5-10.1 Serum or plasma total bilirubin measurement (mass/volume) 0.3 mg/dL 0.1-1.0 Serum or plasma alkaline phosphatase measurement (enzymatic activity/volume) 84 U/L 40-136 Serum or plasma aspartate aminotransferase measurement (enzymatic activity/ volume) 16 U/L 5-34 Serum or plasma alanine aminotransferase measurement (enzymatic activity/volume ) 18 U/L 0-55 Serum or plasma protein measurement (mass/volume) 6.7 g/dL 6.4-8.2 Serum or plasma albumin measurement (mass/volume) 3.7 g/dL 3.2-4.5 Influenza virus A and B antigen detection - 10/23/15 21:12 FLU RESULT NEGATIVE FOR INFLUENZA A AND B ANTIGENS BY IA NRG Complete urinalysis with reflex to culture - 01/11/16 19:27 Urine color determination YELLOW NRG Urine clarity determination CLEAR NRG Urine pH measurement by test strip 5 5-9 Specific gravity of urine by test strip 1.025 1.016- 1.022 Urine protein assay by test strip, semi-quantitative NEGATIVE NEGATIVE Urine glucose detection by automated test strip NEGATIVE NEGATIVE Erythrocytes detection in urine sediment by light microscopy NEGATIVE NEGATIVE Urine ketones detection by automated test strip NEGATIVE NEGATIVE Urine nitrite detection by test strip NEGATIVE NEGATIVE Urine total bilirubin detection by test strip NEGATIVE NEGATIVE Urine urobilinogen measurement by automated test strip (mass/volume) NORMAL NORMAL Urine leukocyte esterase detection by dipstick 1+ NEGATIVE Automated urine sediment erythrocyte count by microscopy (number/high power field) NONE NRG Automated urine sediment leukocyte count by microscopy (number/high power field ) [HPF] NRG Bacteria detection in urine sediment by light microscopy FEW NRG Squamous epithelial cells detection in urine sediment by light microscopy 5-10 NRG Crystals detection in urine sediment by light microscopy NONE NRG Casts detection in urine sediment by light microscopy NONE NRG Mucus detection in urine sediment by light microscopy MODERATE NRG Complete urinalysis with reflex to culture NO NRG Complete blood count (CBC) with automated white blood cell (WBC) differential - 01/11/16 19:50 Blood leukocytes automated count (number/volume) 8.8 10*3/uL 4.3-11.0 Blood erythrocytes automated count (number/volume) 4.91 10*6/uL 4.35-5.85 Venous blood hemoglobin measurement (mass/volume) 14.2 g/dL 11.5-16.0 Blood hematocrit (volume fraction) 43 % 35-52 Automated erythrocyte mean corpuscular volume 87 [foz_us] 80-99 Automated erythrocyte mean corpuscular hemoglobin (mass per erythrocyte) 29 pg 25-34 Automated erythrocyte mean corpuscular hemoglobin concentration measurement ( mass/volume) 33 g/dL 32-36 Automated erythrocyte distribution width ratio 14.6 % 10.0-14.5 Automated blood platelet count (count/volume) 307 10*3/uL 130-400 Automated blood platelet mean volume measurement 10.9 [foz_us] 7.4-10.4 Automated blood neutrophils/100 leukocytes 64 % 42-75 Automated blood lymphocytes/100 leukocytes 25 % 12-44 Blood monocytes/100 leukocytes 7 % 0-12 Automated blood eosinophils/100 leukocytes 3 % 0-10 Automated blood basophils/100 leukocytes 0 % 0-10 Blood neutrophils automated count (number/volume) 5.7 10*3 1.8-7.8 Blood lymphocytes automated count (number/volume) 2.2 10*3 1.0-4.0 Blood monocytes automated count (number/volume) 0.6 10*3 0.0-1.0 Automated eosinophil count 0.3 10*3/uL 0.0-0.3 Automated blood basophil count (count/volume) 0.0 10*3/uL 0.0-0.1 Comprehensive metabolic panel - 01/11/16 19:50 Serum or plasma sodium measurement (moles/volume) 140 mmol/L 135-145 Serum or plasma potassium measurement (moles/volume) 3.9 mmol/L 3.6-5.0 Serum or plasma chloride measurement (moles/volume) 109 mmol/L 98-107 Carbon dioxide 20 mmol/L 21-32 Serum or plasma anion gap determination (moles/volume) 11 mmol/L 5-14 Serum or plasma urea nitrogen measurement (mass/volume) 11 mg/dL 7-18 Serum or plasma creatinine measurement (mass/volume) 0.78 mg/dL 0.60-1.30 Serum or plasma urea nitrogen/creatinine mass ratio 14 NRG Serum or plasma creatinine measurement with calculation of estimated glomerular filtration rate > NRG Serum or plasma glucose measurement (mass/volume) 79 mg/dL 70-105 Serum or plasma calcium measurement (mass/volume) 9.7 mg/dL 8.5-10.1 Serum or plasma total bilirubin measurement (mass/volume) 0.2 mg/dL 0.1-1.0 Serum or plasma alkaline phosphatase measurement (enzymatic activity/volume) 82 U/L 40-136 Serum or plasma aspartate aminotransferase measurement (enzymatic activity/ volume) 20 U/L 5-34 Serum or plasma alanine aminotransferase measurement (enzymatic activity/volume ) 19 U/L 0-55 Serum or plasma protein measurement (mass/volume) 7.5 g/dL 6.4-8.2 Serum or plasma albumin measurement (mass/volume) 4.2 g/dL 3.2-4.5 Complete urinalysis with reflex to culture - 11/07/16 18:40 Urine color determination YELLOW NRG Urine clarity determination SLIGHTLY CLOUDY NRG Urine pH measurement by test strip 5 5-9 Specific gravity of urine by test strip 1.020 1.016- 1.022 Urine protein assay by test strip, semi-quantitative 1+ NEGATIVE Urine glucose detection by automated test strip NEGATIVE NEGATIVE Erythrocytes detection in urine sediment by light microscopy NEGATIVE NEGATIVE Urine ketones detection by automated test strip NEGATIVE NEGATIVE Urine nitrite detection by test strip NEGATIVE NEGATIVE Urine total bilirubin detection by test strip NEGATIVE NEGATIVE Urine urobilinogen measurement by automated test strip (mass/volume) 1 mg/dL NORMAL Urine leukocyte esterase detection by dipstick 2+ NEGATIVE Automated urine sediment erythrocyte count by microscopy (number/high power field) NONE NRG Automated urine sediment leukocyte count by microscopy (number/high power field ) [HPF] NRG Bacteria detection in urine sediment by light microscopy FEW NRG Squamous epithelial cells detection in urine sediment by light microscopy 25-50 NRG Crystals detection in urine sediment by light microscopy NONE NRG Casts detection in urine sediment by light microscopy NONE NRG Mucus detection in urine sediment by light microscopy SMALL NRG Complete urinalysis with reflex to culture YES NRG Urine beta human chorionic gonadotropin (hCG) measurement - 11/07/16 18:40 Urine beta human chorionic gonadotropin (hCG) measurement POSITIVE NEGATIVE Bacterial urine culture - 11/07/16 18:40 URINE CULTURE RESULTS <10,000/ML NRG Complete blood count (CBC) with automated white blood cell (WBC) differential - 11/07/16 19:49 Blood leukocytes automated count (number/volume) 6.3 10*3/uL 4.3-11.0 Blood erythrocytes automated count (number/volume) 4.54 10*6/uL 4.35-5.85 Venous blood hemoglobin measurement (mass/volume) 13.1 g/dL 11.5-16.0 Blood hematocrit (volume fraction) 39 % 35-52 Automated erythrocyte mean corpuscular volume 87 [foz_us] 80-99 Automated erythrocyte mean corpuscular hemoglobin (mass per erythrocyte) 29 pg 25-34 Automated erythrocyte mean corpuscular hemoglobin concentration measurement ( mass/volume) 33 g/dL 32-36 Automated erythrocyte distribution width ratio 14.2 % 10.0-14.5 Automated blood platelet count (count/volume) 267 10*3/uL 130-400 Automated blood platelet mean volume measurement 10.8 [foz_us] 7.4-10.4 Automated blood neutrophils/100 leukocytes 60 % 42-75 Automated blood lymphocytes/100 leukocytes 29 % 12-44 Blood monocytes/100 leukocytes 9 % 0-12 Automated blood eosinophils/100 leukocytes 3 % 0-10 Automated blood basophils/100 leukocytes 1 % 0-10 Blood neutrophils automated count (number/volume) 3.7 10*3 1.8-7.8 Blood lymphocytes automated count (number/volume) 1.8 10*3 1.0-4.0 Blood monocytes automated count (number/volume) 0.6 10*3 0.0-1.0 Automated eosinophil count 0.2 10*3/uL 0.0-0.3 Automated blood basophil count (count/volume) 0.0 10*3/uL 0.0-0.1 Comprehensive metabolic panel - 11/07/16 19:49 Serum or plasma sodium measurement (moles/volume) 137 mmol/L 135-145 Serum or plasma potassium measurement (moles/volume) 4.2 mmol/L 3.6-5.0 Serum or plasma chloride measurement (moles/volume) 107 mmol/L 98-107 Carbon dioxide 21 mmol/L 21-32 Serum or plasma anion gap determination (moles/volume) 9 mmol/L 5-14 Serum or plasma urea nitrogen measurement (mass/volume) 8 mg/dL 7-18 Serum or plasma creatinine measurement (mass/volume) 0.68 mg/dL 0.60-1.30 Serum or plasma urea nitrogen/creatinine mass ratio 12 NRG Serum or plasma creatinine measurement with calculation of estimated glomerular filtration rate > NRG Serum or plasma glucose measurement (mass/volume) 78 mg/dL 70-105 Serum or plasma calcium measurement (mass/volume) 8.9 mg/dL 8.5-10.1 Serum or plasma total bilirubin measurement (mass/volume) 0.2 mg/dL 0.1-1.0 Serum or plasma alkaline phosphatase measurement (enzymatic activity/volume) 69 U/L 40-136 Serum or plasma aspartate aminotransferase measurement (enzymatic activity/ volume) 16 U/L 5-34 Serum or plasma alanine aminotransferase measurement (enzymatic activity/volume ) 21 U/L 0-55 Serum or plasma protein measurement (mass/volume) 6.9 g/dL 6.4-8.2 Serum or plasma albumin measurement (mass/volume) 3.7 g/dL 3.2-4.5 Serum or plasma thyrotropin measurement by detection limit <=0.05 miu/l (units/ volume) - 11/07/16 19:49 Serum or plasma thyrotropin measurement by detection limit <=0.05 miu/l (units/ volume) 1.99 u[iU]/mL 0.35-4.94 Serum or plasma choriogonadotropin measurement (units/volume) - 11/07/16 19:49 Serum or plasma choriogonadotropin measurement (units/volume) 65804 m[iU]/mL <5 Streptococcus pyogenes antigen detection - 11/16/16 18:56 Streptococcus pyogenes antigen detection NEGATIVE NEGATIVE Bacterial throat culture - 11/16/16 18:56 Bacterial throat culture [id number] NRG FREE TEXT EXTERNAL PLUS NORMAL PRIYANK NRG QUANTITY OF GROWTH Isolated NRG Complete urinalysis with reflex to culture - 11/16/16 19:00 Urine color determination YELLOW NRG Urine clarity determination CLEAR NRG Urine pH measurement by test strip 7 5-9 Specific gravity of urine by test strip 1.015 1.016- 1.022 Urine protein assay by test strip, semi-quantitative NEGATIVE NEGATIVE Urine glucose detection by automated test strip NEGATIVE NEGATIVE Erythrocytes detection in urine sediment by light microscopy NEGATIVE NEGATIVE Urine ketones detection by automated test strip NEGATIVE NEGATIVE Urine nitrite detection by test strip NEGATIVE NEGATIVE Urine total bilirubin detection by test strip NEGATIVE NEGATIVE Urine urobilinogen measurement by automated test strip (mass/volume) NORMAL NORMAL Urine leukocyte esterase detection by dipstick 1+ NEGATIVE Automated urine sediment erythrocyte count by microscopy (number/high power field) NONE NRG Automated urine sediment leukocyte count by microscopy (number/high power field ) [HPF] NRG Bacteria detection in urine sediment by light microscopy MODERATE NRG Squamous epithelial cells detection in urine sediment by light microscopy 25-50 NRG Crystals detection in urine sediment by light microscopy NONE NRG Casts detection in urine sediment by light microscopy NONE NRG Mucus detection in urine sediment by light microscopy NEGATIVE NRG Complete urinalysis with reflex to culture NO NRG Complete blood count (CBC) with automated white blood cell (WBC) differential - 11/16/16 19:10 Blood leukocytes automated count (number/volume) 6.7 10*3/uL 4.3-11.0 Blood erythrocytes automated count (number/volume) 4.64 10*6/uL 4.35-5.85 Venous blood hemoglobin measurement (mass/volume) 13.3 g/dL 11.5-16.0 Blood hematocrit (volume fraction) 40 % 35-52 Automated erythrocyte mean corpuscular volume 86 [foz_us] 80-99 Automated erythrocyte mean corpuscular hemoglobin (mass per erythrocyte) 29 pg 25-34 Automated erythrocyte mean corpuscular hemoglobin concentration measurement ( mass/volume) 33 g/dL 32-36 Automated erythrocyte distribution width ratio 14.3 % 10.0-14.5 Automated blood platelet count (count/volume) 275 10*3/uL 130-400 Automated blood platelet mean volume measurement 10.3 [foz_us] 7.4-10.4 Automated blood neutrophils/100 leukocytes 66 % 42-75 Automated blood lymphocytes/100 leukocytes 25 % 12-44 Blood monocytes/100 leukocytes 7 % 0-12 Automated blood eosinophils/100 leukocytes 3 % 0-10 Automated blood basophils/100 leukocytes 0 % 0-10 Blood neutrophils automated count (number/volume) 4.4 10*3 1.8-7.8 Blood lymphocytes automated count (number/volume) 1.7 10*3 1.0-4.0 Blood monocytes automated count (number/volume) 0.5 10*3 0.0-1.0 Automated eosinophil count 0.2 10*3/uL 0.0-0.3 Automated blood basophil count (count/volume) 0.0 10*3/uL 0.0-0.1 Comprehensive metabolic panel - 11/16/16 19:10 Serum or plasma sodium measurement (moles/volume) 138 mmol/L 135-145 Serum or plasma potassium measurement (moles/volume) 3.8 mmol/L 3.6-5.0 Serum or plasma chloride measurement (moles/volume) 107 mmol/L 98-107 Carbon dioxide 20 mmol/L 21-32 Serum or plasma anion gap determination (moles/volume) 11 mmol/L 5-14 Serum or plasma urea nitrogen measurement (mass/volume) 7 mg/dL 7-18 Serum or plasma creatinine measurement (mass/volume) 0.66 mg/dL 0.60-1.30 Serum or plasma urea nitrogen/creatinine mass ratio 11 NRG Serum or plasma creatinine measurement with calculation of estimated glomerular filtration rate > NRG Serum or plasma glucose measurement (mass/volume) 83 mg/dL 70-105 Serum or plasma calcium measurement (mass/volume) 9.3 mg/dL 8.5-10.1 Serum or plasma total bilirubin measurement (mass/volume) 0.2 mg/dL 0.1-1.0 Serum or plasma alkaline phosphatase measurement (enzymatic activity/volume) 68 U/L 40-136 Serum or plasma aspartate aminotransferase measurement (enzymatic activity/ volume) 17 U/L 5-34 Serum or plasma alanine aminotransferase measurement (enzymatic activity/volume ) 21 U/L 0-55 Serum or plasma protein measurement (mass/volume) 7.0 g/dL 6.4-8.2 Serum or plasma albumin measurement (mass/volume) 3.7 g/dL 3.2-4.5 Encounters ACCT No. Visit Date/Time Discharge Status Pt. Type Provider Facility Loc./Unit Complaint [id number] 06/13/2013 17:34:00 06/13/2013 23:59:59 CLS Outpatient RUTH ANN LAURENT APRN [id number] 06/13/2013 17:34:00 06/13/2013 23:59:59 CLS Outpatient THERESE LI DO [id number] 04/11/2013 14:28:00 04/11/2013 23:59:59 CLS Outpatient THERESE LI DO [id number] 03/08/2013 17:48:00 03/08/2013 23:59:59 CLS Outpatient RUTH ANN LAURENT APRN [id number] 03/08/2013 17:48:00 03/08/2013 23:59:59 CLS Outpatient RUTH ANN LAURENT APRN [id number] 02/07/2013 14:27:00 02/07/2013 23:59:59 CLS Outpatient THERESE LI DO [id number] 02/07/2013 14:27:00 02/07/2013 23:59:59 CLS Outpatient THERESE LI DO [id number] 01/10/2013 13:06:00 01/10/2013 23:59:59 CLS Outpatient THERESE LI DO [id number] 12/27/2012 17:44:00 12/27/2012 23:59:59 CLS Outpatient ANASTASIIARUTH ANN HALL APRN [id number] 11/23/2012 17:26:00 11/23/2012 23:59:59 CLS Outpatient RUTH ANN LAURENT APRN [id number] 09/17/2011 15:15:00 09/17/2011 23:59:59 CLS Outpatient THERESE LI DO [id number] 01/19/2017 11:51:00 01/19/2017 23:59:59 CLS Outpatient ALESSIO ARTIS DO [facility] RAD Z34.92 [id number] 11/16/2016 18:00:00 11/16/2016 19:57:00 DIS Emergency LEROY WHITE MD [facility] ER 12 WKS PREG/FALL/HEAD INJ [id number] 11/07/2016 17:44:00 11/07/2016 21:41:00 DIS Emergency SARAH RASHEED [facility] ER STOMACH PAIN [id number] 01/11/2016 18:27:00 01/11/2016 21:08:00 DIS Emergency SUNDAR GEORGE [employer] LAMINATOR [facility] ER ABD PAIN [id number] 12/27/2015 15:34:00 12/27/2015 23:59:59 CLS Outpatient SHIVA LANCE MD [facility] RAD LOWER ABD PAIN [id number] 10/23/2015 20:18:00 10/23/2015 23:46:00 DIS Emergency LINDA JOY DO [facility] ER PASSING OUT/DIFF BREATHING /COUGH [id number] 10/06/2015 22:11:00 10/06/2015 22:30:00 DIS Emergency SUNDAR GEORGE [employer] L[employer]INATOR [facility] ER SWOLLEN LEFT EYE , RIGHT SIDED FACIAL NUMBNESS [id number] 07/01/2013 23:01:00 07/03/2013 12:15:00 DIS Inpatient THERESE LI DO [facility] WS LABOR [id number] 06/27/2013 13:19:00 06/27/2013 17:15:00 DIS Outpatient THERESE

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
[2017-01-23 02:28] LABS: BILIRUBIN,URINE NEGATIVE (NEGATIVE); KETONES,URINE NEGATIVE (NEGATIVE); LEUKOCYTE ESTERASE ,URINE 1+ (NEGATIVE); NITRITE,URINE NEGATIVE (NEGATIVE); PH,URINE 6 (5-9); PROTEIN,URINE NEGATIVE (NEGATIVE); UROBILINOGEN,URINE NORMAL (NORMAL)
[2017-01-23 02:48] LABS: SQUAMOUS EPITHELIAL CELL,UR 25-50 /HPF; WBC,URINE RARE /HPF
[2017-01-23 03:32] LABS: BASOPHILS % (AUTO) 0 % (0-10); EOSINOPHILS # (AUTO) 0.2 10^3/uL (0.0-0.3); EOSINOPHILS % (AUTO) 3 % (0-10); LYMPHOCYTES # (AUTO) 1.9 X 10^3 (1.0-4.0); LYMPHOCYTES % (AUTO) 21 % (12-44); MEAN CORPUSCULAR HEMOGLOBIN 29 PG (25-34); MEAN CORPUSCULAR HGB CONC 33 G/DL (32-36); MEAN CORPUSCULAR VOLUME 88 FL (80-99); MONOCYTES # (AUTO) 0.5 X 10^3 (0.0-1.0); MONOCYTES % (AUTO) 5 % (0-12); NEUTROPHILS # (AUTO) 6.6 X 10^3 (1.8-7.8); NEUTROPHILS % (AUTO) 71 % (42-75); PLATELET COUNT 304 10^3/uL (130-400); RED BLOOD COUNT 4.13 10^6/uL (4.35-5.85); WHITE BLOOD COUNT 9.3 10^3/uL (4.3-11.0)
[2017-01-23 03:42] LABS: ALANINE AMINOTRANSFERASE 21 U/L (0-55); ALBUMIN 3.2 GM/DL (3.2-4.5); ANION GAP 11 MMOL/L (5-14); ASPARTATE AMINO TRANSFERASE 15 U/L (5-34); BILIRUBIN,TOTAL < 0.1 MG/DL (0.1-1.0); BLOOD UREA NITROGEN 10 MG/DL (7-18); BUN/CREATININE RATIO 17; CALCIUM 9.3 MG/DL (8.5-10.1); CARBON DIOXIDE 21 MMOL/L (21-32); CHLORIDE 107 MMOL/L (98-107); GFR ESTIMATED > 60; GLUCOSE 81 MG/DL (70-105); POTASSIUM 3.7 MMOL/L (3.6-5.0); SODIUM 139 MMOL/L (135-145); TOTAL PROTEIN 6.6 GM/DL (6.4-8.2)
[2017-01-23] MEDS ORDERED: ACETAMINOPHEN 500 MG TAB (TYLENOL) PO STA (03:50)
[2017-01-23 04:00] VITALS: BP 125/77
[2017-01-23] MEDS ORDERED: LEVO25TA2 PO (06:01)
== END 2017-01-23 04:06 | disposition home or self-care (01) ==
LOC: EDUNIT# 00:21 → ER 00:23
DX: O9A.212 Injury, poisoning and certain other consequences of external causes complicating pregnancy, second trimester (principal); S06.0X9A Concussion with loss of consciousness of unspecified duration, initial encounter; O99.512 Diseases of the respiratory system complicating pregnancy, second trimester; J45.909 Unspecified asthma, uncomplicated; O99.332 Smoking (tobacco) complicating pregnancy, second trimester; F17.210 Nicotine dependence, cigarettes, uncomplicated; Z80.3 Family history of malignant neoplasm of breast; Z3A.22 22 weeks gestation of pregnancy; Y04.8XXA Assault by other bodily force, initial encounter
CPT/HCPCS: 36415; 80053; 80306; 81000; 85025; 99283

== ENCOUNTER 2017-01-23 04:29 | Outpatient (CLI) | payer MEDICAID ==
[~2017-01-23] VITALS: Ht 167.6 cm; Wt 110.2 kg
[2017-01-23 04:45] VITALS: BP 127/65
[2017-01-23] MEDS ORDERED: LEVO25TA2 PO (06:01)
[2017-01-23] MEDS ORDERED: INFLUENZA TRIvalent 2017-2018 0.5 ML/45 MCG SYR IM ONE (07:30)
[2017-01-23 09:15] VITALS: BP_SYST 111; BP_SYST 115; BP_DIAS 68; BP_DIAS 76
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
== END 2017-01-23 10:50 | disposition home or self-care (01) ==
LOC: WSo 04:29 → LDRP 04:35 → WSo 10:50
PROVIDERS: ATTEND Obstetrics & Gynecology
DX: O9A.212 Injury, poisoning and certain other consequences of external causes complicating pregnancy, second trimester (principal); Z3A.22 22 weeks gestation of pregnancy; Y04.8XXS Assault by other bodily force, sequela
CPT/HCPCS: 76815; 99213

== ENCOUNTER → 2017-01-23 | Outpatient (CLI) | payer MEDICAID ==
[~2017-01-23] MED LIST changes: +LEVO25TA2 PO
[2017-01-23 02:01] VITALS: BP 129/69
--- NOTE | 2017-01-23 06:59 | Forensic Nursing Medical Dir ---
Forensic Nursing Note director prospect case and chart review completed. LEROY WHITE MD Jan 23, 2017 06:59
== END ==
LOC: FNS 01:14
PROVIDERS: ATTEND Emergency Medicine
DX: Z02.89 Encounter for other administrative examinations (principal)

== ENCOUNTER → 2017-02-04 | Outpatient (CLI) | payer MEDICAID ==
[~2017-02-04] MED LIST changes: +LEVO25TA2 PO
--- NOTE | 2017-02-04 14:52 | Diagnostic Imaging Report ---
INDICATION: Followup spine, head, and cardiac anatomy. TECHNIQUE: Multiple Real-time grayscale images were obtained over the gravid uterus. COMPARISON: 01/23/2017. FINDINGS: The heart rate is 136 BPM. The amniotic fluid appears adequate. The placenta is anterior with no placenta previa. The position is cephalic. The four-chamber view and spine are still not well seen due to position and the large patient body habitus. The intracranial structures appear normal with no ventriculomegaly. IMPRESSION: The spine and four-chamber view are still not well seen due to position and large body habitus. Dictated by: Dictated on workstation # [id number]
== END ==
LOC: RAD 10:04
PROVIDERS: ATTEND Obstetrics & Gynecology
DX: Z36.89 Encounter for other specified antenatal screening (principal); Z3A.00 Weeks of gestation of pregnancy not specified
CPT/HCPCS: 76816

== ENCOUNTER 2017-03-05 17:11 | Outpatient (CLI) | payer MEDICAID ==
[~2017-03-05] VITALS: Ht 167.6 cm; Wt 114.3 kg
[2017-03-05 17:00] VITALS: BP 124/72
[2017-03-05 18:30] VITALS: BP 119/59
--- NOTE | 2017-03-06 10:23 | Physician Query-Final Dx ---
NAS VIVAR 03/06/17 1023: Clinic Account Progress/Dx Physician Query: Please give diagnosis Date of Service Mar 05, 2017 at 17:11 MADINA JERNIGAN DO 03/10/17 1107: Clinic Account Progress/Dx DIAGNOSIS: Diagnosis 28 week IUP Uterine cramping NAS VIVAR Mar 06, 2017 10:23 MADINA JERNIGAN DO Mar 10, 2017 11:07
== END 2017-03-05 18:50 | disposition home or self-care (01) ==
LOC: LDRP 17:11 → WSo 17:11
PROVIDERS: ATTEND Obstetrics & Gynecology
DX: O99.89 Other specified diseases and conditions complicating pregnancy, childbirth and the puerperium (principal); N94.89 Other specified conditions associated with female genital organs and menstrual cycle; Z3A.28 28 weeks gestation of pregnancy
CPT/HCPCS: 99214

== ENCOUNTER 2017-03-31 18:45 | Outpatient (CLI) | payer MEDICAID ==
[~2017-03-31] VITALS: Ht 167.6 cm; Wt 115.7 kg
[2017-03-31 19:30] VITALS: BP 120/77
[2017-03-31 20:00] LABS: BILIRUBIN,URINE NEGATIVE (NEGATIVE); CLARITY,URINE CLEAR; COLOR,URINE YELLOW; GLUCOSE, URINE (UA) NEGATIVE (NEGATIVE); KETONES,URINE NEGATIVE (NEGATIVE); LEUKOCYTE ESTERASE ,URINE 1+ (NEGATIVE); NITRITE,URINE NEGATIVE (NEGATIVE); PH,URINE 8 (5-9); PROTEIN,URINE NEGATIVE (NEGATIVE); UROBILINOGEN,URINE NORMAL (NORMAL)
[2017-03-31] MEDS ORDERED: NS IV 1000 ML 1,000 ML IV SCH (20:30)
--- NOTE | 2017-04-20 07:37 | Physician Query-Final Dx ---
NAS VIVAR 04/20/17 0737: Clinic Account Progress/Dx Physician Query: Please give diagnosis Date of Service Mar 31, 2017 at 18:45 ALESSIO ARTIS DO 04/20/17 0858: Clinic Account Progress/Dx DIAGNOSIS: Diagnosis diarrhea dehydration NAS VIVAR Apr 20, 2017 07:37 ALESSIO ARTIS DO Apr 20, 2017 08:58
== END 2017-03-31 21:40 | disposition home or self-care (01) ==
LOC: WSo 18:45 → LDRP 18:45 → WSo 21:40
PROVIDERS: ATTEND Obstetrics & Gynecology
DX: O99.89 Other specified diseases and conditions complicating pregnancy, childbirth and the puerperium (principal); E86.0 Dehydration; R19.7 Diarrhea, unspecified; Z3A.32 32 weeks gestation of pregnancy
CPT/HCPCS: 81000; 96360; 99213

== ENCOUNTER 2017-04-22 15:43 | Outpatient (CLI) | payer MEDICAID ==
[~2017-04-22] VITALS: Ht 167.6 cm; Wt 118.9 kg
[2017-04-22 16:00] VITALS: BP 133/65
[2017-04-22] MEDS ORDERED: ACETAMINOPHEN 500 MG TAB (TYLENOL) PO ONE (16:30)
--- NOTE | 2017-04-23 16:22 | Physician Query-Final Dx ---
JEFFY WORRELL 04/23/17 1622: Clinic Account Progress/Dx Physician Query: Please give diagnosis Date of Service Apr 22, 2017 at 15:43 MAHESH SAM MD 04/23/17 1916: Clinic Account Progress/Dx DIAGNOSIS: Diagnosis False labor JEFFY WORRELL Apr 23, 2017 16:22 MAHESH SAM MD Apr 23, 2017 19:16
== END 2017-04-22 17:48 | disposition home or self-care (01) ==
LOC: WSo 15:43 → LDRP 15:43 → WSo 17:48
PROVIDERS: ATTEND Obstetrics & Gynecology
DX: O47.03 False labor before 37 completed weeks of gestation, third trimester (principal); Z3A.35 35 weeks gestation of pregnancy
CPT/HCPCS: 99213

== ENCOUNTER → 2017-05-18 | Outpatient (CLI) | payer MEDICAID ==
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
== END ==
LOC: RAD 14:25
PROVIDERS: ATTEND Obstetrics & Gynecology
DX: O09.523 Supervision of elderly multigravida, third trimester (principal); O32.1XX0 Maternal care for breech presentation, not applicable or unspecified; Z3A.38 38 weeks gestation of pregnancy
CPT/HCPCS: 76805; 76819

== ENCOUNTER 2017-05-27 08:00 | Inpatient (IN) | payer MEDICAID ==
[~2017-05-27] VITALS: Ht 167.6 cm; Wt 121.7 kg
[2017-05-27] VITALS (45 sets, daily range): BP systolic 100–138; BP diastolic 52–75
[2017-05-27] MEDS ORDERED: MINERAL OIL CONCENTRATE 99.9% 15 ML UDC TOP PRN (08:30)
[2017-05-27] MEDS: D5 LR IV SOLUTION 1,000 ML IV SCH ×3 (08:44→23:56)
[2017-05-27 08:59] LABS: BASOPHILS % (AUTO) 0 % (0-10); EOSINOPHILS # (AUTO) 0.3 10^3/uL (0.0-0.3); EOSINOPHILS % (AUTO) 3 % (0-10); HEMATOCRIT 35 % (35-52); HEMOGLOBIN 11.5 G/DL (11.5-16.0); LYMPHOCYTES # (AUTO) 1.7 X 10^3 (1.0-4.0); LYMPHOCYTES % (AUTO) 16 % (12-44); MEAN CORPUSCULAR HEMOGLOBIN 29 PG (25-34); MEAN CORPUSCULAR HGB CONC 33 G/DL (32-36); MEAN CORPUSCULAR VOLUME 88 FL (80-99); MEAN PLATELET VOLUME 10.3 FL (7.4-10.4); MONOCYTES # (AUTO) 0.6 X 10^3 (0.0-1.0); MONOCYTES % (AUTO) 6 % (0-12); NEUTROPHILS # (AUTO) 7.7 X 10^3 (1.8-7.8); NEUTROPHILS % (AUTO) 75 % (42-75); PLATELET COUNT 323 10^3/uL (130-400); RED BLOOD COUNT 3.94 10^6/uL (4.35-5.85); RED CELL DISTRIBUTION WIDTH 16.2 % (10.0-14.5); WHITE BLOOD COUNT 10.2 10^3/uL (4.3-11.0)
[2017-05-27] MEDS ORDERED: MISOPROSTOL 100 MCG (CYTOTEC) TAB PO ONE (09:15)
[2017-05-27] MEDS ORDERED: CLINDAMYCIN 900 MG/50 ML IVPB 50 ML IV ONE (09:15)
[2017-05-27] MEDS: MISOPROSTOL 100 MCG (CYTOTEC) TAB PO SCH ×3 (13:14→21:24)
[2017-05-27] MEDS: CLINDAMYCIN 600 MG/50 ML IVPB 50 ML IV SCH ×2 (15:27→21:24)
[2017-05-27] MEDS ORDERED: SUFENTA 0.6MCG/ML BUPIVA 0.125 100 ML ONE (15:28)
[2017-05-27] MEDS ORDERED: LACTATED RINGERS 1,000 ML IV SCH (16:00)
[2017-05-27] MEDS ORDERED: fentaNYL INJECTION 100 MCG/2 ML AMP ONE (16:02)
[2017-05-27] MEDS ORDERED: LIDOCAINE PF 2% 5 ML (XYLOCAINE) VIAL ONE (16:02)
[2017-05-27] MEDS ORDERED: BUPIVACAINE 0.25% 30 ML (SENSORCAINE) VIAL ONE (16:02)
[2017-05-27] MEDS ORDERED: OXYTOCIN/NORMAL SALINE 500 ML IV SCH (16:09)
--- NOTE | 2017-05-27 16:11 | Progress Note-Standard ---
Standard Progress Note Progress Notes/Assess & Plan Date Seen by Provider: May 27, 2017 Time Seen by Provider: 16:11 Progress/Assessment & Plan Patient has received epidural. Comfortable. Still with rare contractions. Has received second dose of clindamycin. 05/27/17 05/27/17 05/27/17 05/27/17 08:00 10:00 11:00 12:00 Temp 98.4 98.2 Pulse 109 88 86 87 Resp 18 B/P (MAP) 120/74 (89) 128/68 (88) 113/58 (76) 118/65 (82) Pulse Ox 98 O2 Delivery Room Air Room Air Room Air Room Air 05/27/17 05/27/17 13:00 14:00 Temp 97.5 Pulse 88 80 Resp 16 16 B/P (MAP) 121/75 (90) 131/69 (89) O2 Delivery Room Air Room Air Laboratory Tests Test 05/27/17 08:50 Range/Units White Blood Count 10.2 4.3-11.0 10^3/uL Red Blood Count 3.94 L 4.35-5.85 10^6/uL Hemoglobin 11.5 11.5-16.0 G/DL Hematocrit 35 35-52 % Mean Corpuscular Volume 88 80-99 FL Mean Corpuscular Hemoglobin 29 25-34 PG Mean Corpuscular Hemoglobin Concent 33 32-36 G/DL Red Cell Distribution Width 16.2 H 10.0-14.5 % Platelet Count 323 130-400 10^3/uL Mean Platelet Volume 10.3 7.4-10.4 FL Neutrophils (%) (Auto) 75 42-75 % Lymphocytes (%) (Auto) 16 12-44 % Monocytes (%) (Auto) 6 0-12 % Eosinophils (%) (Auto) 3 0-10 % Basophils (%) (Auto) 0 0-10 % Neutrophils # (Auto) 7.7 1.8-7.8 X 10^3 Lymphocytes # (Auto) 1.7 1.0-4.0 X 10^3 Monocytes # (Auto) 0.6 0.0-1.0 X 10^3 Eosinophils # (Auto) 0.3 0.0-0.3 10^3/uL Basophils # (Auto) 0.0 0.0-0.1 10^3/uL 250/-2. AROM clear. FSE placed Still with irregular and rare contractions. Confirmed cephalic presentation Will continue with misoprostol induction and then start oxytocin when 3 cm. ALESSIO ARTIS DO May 27, 2017 16:11
--- NOTE | 2017-05-27 16:11 | Progress Note-Standard ---
Standard Progress Note Progress Notes/Assess & Plan Date Seen by Provider: May 27, 2017 Time Seen by Provider: 11:00 Progress/Assessment & Plan Patient admitted for induction at 40 weeks to prevent complications of post maturity. Admitted 05/27/17 am. Cervix 2 cm/50/-3. Has been breech but at last sono and today, cephalic. Received misoprostol x 2 and started Iv Clinda due to allergy to amp and ancef. Very irregular contractions. Not uncomfortable. Cervix unchanged. FWB reassuring. Will plan AROM after next dose of Clinda. Anticipate States last delivery very fast. "did not have time for epidural ". ALESSIO ARTIS DO May 27, 2017 16:11
[2017-05-28] VITALS (52 sets, daily range): BP systolic 101–189; BP diastolic 51–124
[2017-05-28] MEDS ORDERED: SUFENTA 0.6MCG/ML BUPIVA 0.125 100 ML ONE (00:43)
[2017-05-28] MEDS: OXYTOCIN/NORMAL SALINE 500 ML IV SCH ×2 (01:28→11:09)
[2017-05-28] MEDS: CLINDAMYCIN 600 MG/50 ML IVPB 50 ML IV SCH ×2 (03:43→09:58)
[2017-05-28] MEDS: D5 LR IV SOLUTION 1,000 ML IV SCH (05:13)
[2017-05-28] MEDS: SUFENTA 0.6MCG/ML BUPIVA 0.125 100 ML ONE ×2 (08:53→21:58)
[2017-05-28] MEDS ORDERED: LACTATED RINGERS 1,000 ML IV ONE (09:06)
[2017-05-28] MEDS ORDERED: NALOXONE 0.4 MG/ML 1 ML (NARCAN) VIAL IV PRN (09:15)
[2017-05-28] MEDS ORDERED: EPIDURAL (SUFENTA 0.6MCG/ML BUPIVA 0.125%) 100 ML BAG EPI SCH (09:15)
[2017-05-28] MEDS ORDERED: NALOXONE 0.4 MG/ML 1 ML (NARCAN) VIAL IM PRN (09:15)
[2017-05-28] MEDS ORDERED: ONDANSETRON 4 MG/2 ML (SDV) Z0FRAN IV PRN (09:15)
[2017-05-28] MEDS ORDERED: CATHETER FLUSH 10 ML SYR IV PRN (09:15)
[2017-05-28] MEDS ORDERED: fentaNYL INJECTION 100 MCG/2 ML AMP INJ ONE (09:15)
[2017-05-28] MEDS ORDERED: OXYTOCIN/NORMAL SALINE 500 ML IV SCH (10:25)
[2017-05-28] MEDS ORDERED: TETANUS,DIPTH,PERTUSS P/F (BOOSTRIX) 0.5 ML VIAL IM ONE (10:30)
[2017-05-28] MEDS ORDERED: WITCH HAZEL(TUCKS) 40 EA JAR TOP PRN (10:30)
[2017-05-28] MEDS ORDERED: BENZOCAINE/MENTHOL (DERMOPLAST) 56 ML CAN TP PRN (10:30)
[2017-05-28] MEDS ORDERED: diphenhydrAMINE 50 MG/ML INJ (BENADRYL) IVP NR (10:30)
[2017-05-28] MEDS ORDERED: MEASLES,MUMPS,RUBELLA 1 EA INJ SQ ONE (10:30)
[2017-05-28] MEDS ORDERED: ACETAMINOPHEN 500 MG TAB (TYLENOL) PO PRN (10:30)
[2017-05-28] MEDS ORDERED: PROPRANOLOL 1 MG/ML (INDERAL) INJ IV NR (10:30)
--- NOTE | 2017-05-28 11:08 | OB Labor & Delivery Record ---
Vag Delivery Note Vag Delivery Note Date of Delivery: 05/28/17 Preoperative Diagnosis: Sowmya Morales is a 37 /Para 10 /8 , Gestational Age []40 1/7 weeks, induction due to postmaturity, and recent breech (desire to keep presentation) Postoperative Diagnosis: Same Surgeon: ALESSIO ARTIS Anesthesia: epidural Delivery Type: vacuum Findings: Viable female infant, apgars 2/8/9, weight 6#1oz. Lacerations: none. There were some labial abrasions. There was a 3 cm left periurethral hematoma and a 2 mm urethral polyp/diverticulum vs edema noted. Intact placenta with 3 vessel cord. No nuchal cord or shoulder dystocia, there was a shoulder/body cord that was delivered through. Estimated Blood Loss: 100 ml Complications: None Condition: Stable Description of Procedure: The patient is a 37 /Para 10 /8 ,Gestational Age 40 1/7 weeks, induction due to postmaturity, and recent breech (desire to keep presentation. Due to the presentation being variable and postmaturity, decision made to induce before could revert to breech. presentation. She was admitted and informed consent was obtained. Her labor course was remarkable for misoprostol cervical ripening, clilndamycin (4 doses) and AROM. Then augementation with oxytocin. With oxytocin, once contractions were adequate, there were prolonged variable deceleratoins. Pitocin woul dbe discontinued, status would return to baselina dn reassuring and then potocin would be restarted. Then would have deceleartions again. At 10:30 I was called by an RN on women's services stating that the hearttones were in the 70s x 5 minutes. Pitocin had previously been stopped, she was placed on NRB and reporitioned and heartrate did not improve. I examined the patient, that had been previously reported to be 8 cm dilated, and found cervix to be completely dilated. I asked her to push and she pushed effectively so she was set up for delivery. Heart tones remained in the 70s and then decreased to 60. With +2 station, I placed the Kiwi vacuum and allowed the patient to push x 3 with one contraction and the head was delivered. The infant's head was delivered atraumatically in the EDDIE position. The shoulders and remainder of the infant's body were then delivered without difficulty. Upon delivery, the head was held below the level of the perineum and the mouth and nares were bulb suctioned. The cord was doubly clamped and cut and the was handed off to the pediatric staff. An intact placenta with 3-vessel cord delivered via Marcella and there was found to be minimal bleeding.~ Vigorous fundal massage was performed and the fundus was found to be firm. IV oxytocin was given. Examination of the vagina and perineum revealed no laceration, though there were abrasions and a hematoma. There was no repair. Following the delivery, sponge, instrument and needle counts were correct. Mom and baby were both in stable condition in the labor suite. Vitals - Labs Vital Signs - I&O Vital Signs Date Time Temp Pulse Resp B/P (MAP) Pulse Ox O2 Delivery O2 Flow Rate FiO2 05/28/17 09:20 71 16 120/58 (78) 99 Non Rebreather 10.00 05/28/17 09:05 80 16 126/68 (87) 100 Non Rebreather 10.00 05/28/17 08:50 83 16 124/62 (82) Non Rebreather 10.00 05/28/17 08:35 68 16 113/59 (77) Non Rebreather 10.00 05/28/17 08:20 64 16 107/59 (75) Non Rebreather 10.00 05/28/17 08:05 68 16 109/55 (73) Non Rebreather 10.00 05/28/17 07:50 97.2 61 16 111/56 (74) Non Rebreather 10.00 05/28/17 07:35 64 16 113/62 (79) Non Rebreather 10.00 05/28/17 07:20 65 16 110/56 (74) Non Rebreather 10.00 05/28/17 07:05 78 16 116/58 (77) Non Rebreather 10.00 05/28/17 06:50 70 16 119/59 (79) 10.00 05/28/17 06:35 60 16 106/55 (72) 10.00 05/28/17 06:20 68 16 108/55 (72) 10.00 05/28/17 06:05 98.2 73 16 112/60 (77) 10.00 05/28/17 05:50 64 16 101/59 (73) 10.00 18 05:35 69 16 112/69 (83) 10.00 18 05:20 73 16 120/58 (78) 10.00 18 05:05 99.0 82 16 128/77 (94) 10.00 18 04:50 96.6 88 16 117/76 (90) 99 10.00 05/28/17 04:35 71 16 114/61 (78) 99 10.00 18 04:20 74 16 109/59 (76) 99 18 04:05 71 16 111/57 (75) 100 18 03:50 68 16 111/57 (75) 100 10.00 05/28/17 03:35 98.1 66 16 104/58 (73) 100 10.00 05/28/17 03:20 66 16 117/59 (78) 100 10.00 05/28/17 03:05 76 16 113/55 (74) 100 10.00 05/28/17 02:50 98.1 66 16 109/63 (78) 100 10.00 05/28/17 02:35 64 16 128/59 (82) 100 10.00 18 02:20 68 16 116/57 (76) 100 10.00 05/28/17 02:05 61 16 110/57 (74) 100 10.00 18 01:50 97.2 68 16 110/58 (75) 100 10.00 05/28/17 01:35 74 16 111/56 (74) 100 10.00 05/28/17 01:05 78 16 117/53 (74) 100 10.00 18 00:50 73 16 132/55 (80) 100 10.00 18 00:35 93 16 105/51 (69) 100 10.00 05/28/17 00:20 97.9 82 16 120/58 (78) 100 10.00 18 00:05 76 16 124/60 (81) 100 10.00 05/27/17 23:50 72 16 115/59 (77) 100 10.00 05/27/17 23:35 93.8 74 18 110/60 (77) 100 Room Air 4/18/18 23:20 76 18 112/60 (77) 95 Room Air 18 23:05 85 18 125/53 (77) 100 Room Air 05/27/17 22:50 68 18 106/57 (73) 100 Room Air 10.00 18 22:35 67 18 104/57 (73) 100 Room Air 10.00 05/27/17 22:20 97.6 73 18 114/57 (76) 100 Room Air 10.00 05/27/17 22:05 74 18 113/56 (75) 100 Room Air 05/27/17 21:50 76 18 128/62 (84) 100 Room Air 05/27/17 21:35 79 18 100/54 (69) 99 Room Air 05/27/17 21:20 97.9 73 18 112/57 (75) 99 Room Air 05/27/17 21:05 75 18 112/55 (74) 99 Room Air 05/27/17 20:50 76 18 112/56 (74) 98 Room Air 05/27/17 20:35 76 18 112/56 (74) 98 Room Air 05/27/17 20:20 73 18 103/56 (72) 98 Room Air 05/27/17 20:05 98.0 74 18 98 Room Air 05/27/17 19:50 75 18 106/59 (75) 97 Room Air 05/27/17 19:35 74 18 109/58 (75) 96 Room Air 05/27/17 19:20 97.6 86 17 110/58 (75) 96 Room Air 05/27/17 19:05 96 17 113/58 (76) 96 Room Air 05/27/17 19:00 108 20 113/61 (78) Room Air 18 18:45 98.4 78 110/52 (71) Room Air 18 18:15 85 16 100/53 (69) Room Air 18 18:00 98.2 82 101/54 (70) Room Air 18 17:45 80 113/55 (74) Room Air 18 17:30 71 114/57 (76) 99 Room Air 05/27/17 17:15 83 123/59 (80) 100 Room Air 05/27/17 17:10 76 120/58 (78) 99 Room Air 05/27/17 17:05 90 112/53 (72) 100 Room Air 05/27/17 17:00 98.3 90 127/60 (82) 100 Room Air 05/27/17 16:55 80 122/63 (82) 99 Room Air 05/27/17 16:50 90 117/57 (77) 99 Room Air 05/27/17 16:46 91 18 122/56 (78) 99 Room Air 05/27/17 16:43 91 130/63 (85) 99 Room Air 05/27/17 16:40 84 123/58 (79) 99 Room Air 05/27/17 16:36 85 119/56 (77) 99 Room Air 05/27/17 16:33 91 118/60 (79) 99 Room Air 05/27/17 16:30 97.5 93 18 122/58 (79) Room Air 05/27/17 16:00 80 18 125/62 (83) Room Air 05/27/17 15:00 92 138/61 (86) Room Air 05/27/17 14:00 80 16 131/69 (89) Room Air 05/27/17 13:00 97.5 88 16 121/75 (90) Room Air 05/27/17 12:00 87 118/65 (82) Room Air I & O 05/28/17 07:00 Intake Total 3800 ml Output Total 900 ml Balance 2900 ml ALESSIO ARTIS DO May 28, 2017 11:07
[2017-05-28] MEDS ORDERED: CATHETER FLUSH 10 ML SYR IV SCH (14:00)
[2017-05-28] MEDS: IBUPROFEN 600 MG (MOTRIN) TAB PO SCH ×2 (14:06→21:57)
[2017-05-28] MEDS: DOCUSATE SODIUM 100 MG (COLACE) CAP PO SCH (21:57)
[2017-05-29 03:52] VITALS: BP 108/64
[2017-05-29] MEDS: IBUPROFEN 600 MG (MOTRIN) TAB PO SCH ×4 (03:52→18:15)
[2017-05-29 06:31] LABS: BASOPHILS % (AUTO) 0 % (0-10); EOSINOPHILS # (AUTO) 0.3 10^3/uL (0.0-0.3); EOSINOPHILS % (AUTO) 4 % (0-10); HEMATOCRIT 31 % (35-52); HEMOGLOBIN 10.1 G/DL (11.5-16.0); LYMPHOCYTES # (AUTO) 1.8 X 10^3 (1.0-4.0); LYMPHOCYTES % (AUTO) 21 % (12-44); MEAN CORPUSCULAR HEMOGLOBIN 29 PG (25-34); MEAN CORPUSCULAR HGB CONC 32 G/DL (32-36); MEAN CORPUSCULAR VOLUME 89 FL (80-99); MEAN PLATELET VOLUME 10.2 FL (7.4-10.4); MONOCYTES # (AUTO) 0.5 X 10^3 (0.0-1.0); MONOCYTES % (AUTO) 6 % (0-12); NEUTROPHILS % (AUTO) 70 % (42-75); PLATELET COUNT 261 10^3/uL (130-400); RED BLOOD COUNT 3.54 10^6/uL (4.35-5.85); RED CELL DISTRIBUTION WIDTH 16.3 % (10.0-14.5); WHITE BLOOD COUNT 8.6 10^3/uL (4.3-11.0)
[2017-05-29 08:15] VITALS: BP 106/67
[2017-05-29] MEDS: FERROUS SULF 325 MG (IRON) TAB PO SCH (10:58)
[2017-05-29] MEDS: PRENATAL VITAMIN 1 EA TAB PO SCH (10:58)
[2017-05-29] MEDS: DOCUSATE SODIUM 100 MG (COLACE) CAP PO SCH ×2 (11:00→20:44)
--- NOTE | 2017-05-29 13:09 | Postpartum Progress Note ---
Note Note Day # 1 s/p . Had some swelling post of the labia and paraurethral area. Iv infiltrated into right hand. Attempted to evaluate this and patient was out of room every time I came by. Was not able to examine her hand or her vulva. Per RN had is edematous and slightly red, no heat. Subjective: Patient is without complaints. Ambulating, voiding. Tolerating a regular diet without nausea or vomiting. Normal lochia. Pain is well controlled with oral pain medications. Objective: Laboratory Tests Test 05/29/17 06:20 Range/Units White Blood Count 8.6 4.3-11.0 10^3/uL Red Blood Count 3.54 L 4.35-5.85 10^6/uL Hemoglobin 10.1 L 11.5-16.0 G/DL Hematocrit 31 L 35-52 % Mean Corpuscular Volume 89 80-99 FL Mean Corpuscular Hemoglobin 29 25-34 PG Mean Corpuscular Hemoglobin Concent 32 32-36 G/DL Red Cell Distribution Width 16.3 H 10.0-14.5 % Platelet Count 261 130-400 10^3/uL Mean Platelet Volume 10.2 7.4-10.4 FL Neutrophils (%) (Auto) 70 42-75 % Lymphocytes (%) (Auto) 21 12-44 % Monocytes (%) (Auto) 6 0-12 % Eosinophils (%) (Auto) 4 0-10 % Basophils (%) (Auto) 0 0-10 % Neutrophils # (Auto) 6.0 1.8-7.8 X 10^3 Lymphocytes # (Auto) 1.8 1.0-4.0 X 10^3 Monocytes # (Auto) 0.5 0.0-1.0 X 10^3 Eosinophils # (Auto) 0.3 0.0-0.3 10^3/uL Basophils # (Auto) 0.0 0.0-0.1 10^3/uL 05/29/17 05/29/17 03:52 08:15 Temp 97.8 98.4 Pulse 89 81 Resp 18 16 B/P (MAP) 108/64 (79) 106/67 (80) Pulse Ox 98 95 O2 Delivery Room Air Room Air Physical Exam: General - Alert and oriented, no apparent distress Abdomen - Soft, appropriately tender to palpation, non-distended, fundus firm at umbilicus Extremities - no edema, negative Janina's bilaterally Assessment: 1 post- day # 1, status post vacuum assisted vaginal delivery. Recovering well, hemodynamically stable Plan: Routine care. Encourage breast feeding. Encourage ambulation. Ferrous sulfate supplementation. Plan for discharge tomorrow (GBS + and treated with Clinda x 4 doses so baby has to stay 48 hours). Vitals - Labs Vital Signs - I&O Vital Signs Date Time Temp Pulse Resp B/P (MAP) Pulse Ox O2 Delivery O2 Flow Rate FiO2 05/29/17 08:15 98.4 81 16 106/67 (80) 95 Room Air 05/29/17 03:52 97.8 89 18 108/64 (79) 98 Room Air 05/28/17 23:49 97.4 97 18 114/69 (84) 98 Room Air 05/28/17 19:30 98.1 92 18 118/70 (86) 98 Room Air 05/28/17 13:31 99 16 189/124 (145) Room Air I & O 05/29/17 06:59 Intake Total 1200 ml Balance 1200 ml Labs Laboratory Tests 05/29/17 06:20: White Blood Count 8.6, Red Blood Count 3.54L, Hemoglobin 10.1L, Hematocrit 31L, Mean Corpuscular Volume 89, Mean Corpuscular Hemoglobin 29, Mean Corpuscular Hemoglobin Concent 32, Red Cell Distribution Width 16.3H, Platelet Count 261, Mean Platelet Volume 10.2, Neutrophils (%) (Auto) 70, Lymphocytes (%) (Auto) 21 , Monocytes (%) (Auto) 6, Eosinophils (%) (Auto) 4, Basophils (%) (Auto) 0, Neutrophils # (Auto) 6.0, Lymphocytes # (Auto) 1.8, Monocytes # (Auto) 0.5, Eosinophils # (Auto) 0.3, Basophils # (Auto) 0.0 Microbiology 05/28/17 Urine Culture - Preliminary, Resulted NO GROWTH ALESSIO ARTIS DO May 29, 2017 13:09
[2017-05-29] MEDS ORDERED: FERR325T18 PO (14:34)
[2017-05-29] MEDS ORDERED: IBUP-844 PO (14:34)
[2017-05-29] MEDS ORDERED: ACET-77 PO (14:34)
--- NOTE | 2017-05-29 14:35 | Discharge Inst-Women's Service ---
Discharge Inst-Women's Serv Depart Medication/Instructions New, Converted or Re-Newed RX: RX on Chart Final Diagnosis grandmultipara vaginal delivery post dates induction Consults/Follow Up Additional Follow Up: Yes (6 weeks for pp exam) Activity Activity: Activity as Tolerated Driving Instructions: You May Drive NO SMOKING: NO SMOKING Nothing Inside Vagina: No Douching, No Ama, No Tampons Diet Discharge Diet: No Restrictions Symptoms to Report to : Swelling Increased, Bleeding Excessive, Pain Increased, Fever Over 101 Degrees F, Vaginal Discharge Foul For Any Problems or Questions: Contact Your Physician ALESSIO ARTIS DO May 29, 2017 14:35
--- NOTE | 2017-05-29 14:45 | Anesthesia-Regional Post-Op ---
Regional Significant Intra-Op Events Notes Pt has been ambulating without problems walking downstairs to smoke, Patient Condition Mental Status: Alert, Oriented x3 Circulation: Same as Pre-Op Headache: Absent Sensation: Full Recovery Motor Block: Absent Post Op Complications Complications None Follow Up Care/Instructions Patient Instructions None needed. Anesthesia/Patient Condition Patient is doing well, no complaints, stable vital signs, no apparent adverse anesthesia problems. No complications reported per nursing. D/C home per [facility] [place]: Yes HENOK HEARD CRNA May 29, 2017 14:45
[2017-05-29] MEDS: diphenhydrAMINE 25 MG TAB (BENADRYL) PO PRN (20:44)
[2017-05-29 20:45] VITALS: BP 122/76
[2017-05-30 02:50] VITALS: BP 127/69
[2017-05-30] MEDS: IBUPROFEN 600 MG (MOTRIN) TAB PO SCH ×2 (02:54→09:50)
[2017-05-30 09:48] VITALS: BP 124/77
[2017-05-30] MEDS: FERROUS SULF 325 MG (IRON) TAB PO SCH (09:49)
[2017-05-30] MEDS: PRENATAL VITAMIN 1 EA TAB PO SCH (09:49)
[2017-05-30] MEDS: diphenhydrAMINE 25 MG TAB (BENADRYL) PO PRN (09:51)
--- NOTE | 2017-05-30 10:44 | Postpartum Progress Note ---
Note Note Day # 2 Subjective: Patient is without complaints. Ambulating, voiding. Tolerating a regular diet without nausea or vomiting. Normal lochia. Pain is well controlled with oral pain medications. Objective: Vital Sign - Last 24 Hours 05/29/17 05/30/17 05/30/17 20:45 02:50 09:48 Temp 98.8 97.5 98.4 Pulse 102 94 96 Resp 18 18 18 B/P (MAP) 122/76 (91) 127/69 (88) 124/77 (93) Pulse Ox 97 98 97 O2 Delivery Room Air Room Air Room Air Physical Exam: General - Alert and oriented, no apparent distress Abdomen - Soft, appropriately tender to palpation, non-distended, fundus firm at umbilicus Extremities - no edema, negative Janina's bilaterally Assessment: PPD 2 VAVD GBS + Plan: Routine care. Encourage breast feeding. Encourage ambulation. Ferrous sulfate supplementation. Plan for discharge today Vitals - Labs Vital Signs - I&O Vital Signs Date Time Temp Pulse Resp B/P (MAP) Pulse Ox O2 Delivery O2 Flow Rate FiO2 05/30/17 09:48 98.4 96 18 124/77 (93) 97 Room Air 05/30/17 02:50 97.5 94 18 127/69 (88) 98 Room Air 05/29/17 20:45 98.8 102 18 122/76 (91) 97 Room Air Labs Microbiology 05/28/17 Urine Culture - Final, Complete NO GROWTH MADINA JERNIGAN DO May 30, 2017 10:44 am
== END 2017-05-30 13:45 | disposition home or self-care (01) | DRG 775 ==
LOC: LDRP 08:00
PROVIDERS: ADMIT Obstetrics & Gynecology; ATTEND Obstetrics & Gynecology
PROC: 3E0P7GC Introduction of Other Therapeutic Substance into Female Reproductive, Via Natural or Artificial Opening (ICD-10-PCS; 2017-05-27)
PROC: 10D07Z6 Extraction of Products of Conception, Vacuum, Via Natural or Artificial Opening (ICD-10-PCS; principal; 2017-05-28)
DX: O48.0 Post-term pregnancy (principal); O76 Abnormality in fetal heart rate and rhythm complicating labor and delivery; O99.820 Streptococcus B carrier state complicating pregnancy; O99.333 Smoking (tobacco) complicating pregnancy, third trimester; F17.210 Nicotine dependence, cigarettes, uncomplicated; O99.213 Obesity complicating pregnancy, third trimester; E66.9 Obesity, unspecified; Z68.41 Body mass index [BMI] 40.0-44.9, adult; Z3A.40 40 weeks gestation of pregnancy; Z37.0 Single live birth; Z88.0 Allergy status to penicillin; Z88.1 Allergy status to other antibiotic agents
CPT/HCPCS: 36415; 85025; 86850; 86900; 86901; 87088

== ENCOUNTER 2017-07-16 15:52 | Emergency (ER) | payer MEDICAID ==
[~2017-07-16] VITALS: Ht 167.6 cm; Wt 97.5 kg
[~2017-07-16 15:52] MED LIST changes: +ACET-77 PO; +FERR325T18 PO; +IBUP-844 PO
[2017-07-16] MEDS ORDERED: HYDR-757 PO (16:06)
--- NOTE | 2017-07-16 16:07 | ED Upper Extremity ---
General Stated Complaint: SPIDER BITE Source: patient Exam Limitations: no limitations History of Present Illness Date Seen by Provider: Jul 16, 2017 Time Seen by Provider: 16:02 Initial Comments to ER with a spider bite to the right hand that occurred while at [employer] 3 days ago. She had her hand on the railing, felt a pinch on her middle finger and looked down and saw 2 small puncture wounds. She then saw [facility]- in [facility] a day or 2 later who put her on Bactrim. Since then she has a small purplish blister at the site of the bite on the middle finger with some ecchymosis pain and swelling over the hypothenar eminence. She denies fevers chills nausea vomiting. Onset: just prior to arrival Pain/Injury Location: right hand Allergies and Home Medications Allergies Coded Allergies: amoxicillin (Verified Allergy, Unknown, 08/20/05) cephalexin (Verified Allergy, Unknown, 08/20/05) latex (Verified Allergy, Unknown, 05/31/07) Home Medications Acetaminophen 500 Mg Tablet, 1,000 MG PO Q6H PRN for PAIN-MILD Prescribed by: ALESSIO ARTIS on 05/29/17 1434 Ferrous Sulfate 325 Mg Tablet, 325 MG PO DAILY@0700 Prescribed by: ALESSIO ARTIS on 05/29/17 1434 Ibuprofen 600 Mg Tablet, 600 MG PO Q6H Prescribed by: ALESSIO ARTIS on 05/29/17 1434 Patient Home Medication List Home Medication List Reviewed: Yes Constitutional: see HPI EENTM: see HPI Respiratory: no symptoms reported Cardiovascular: no symptoms reported Genitourinary: no symptoms reported Musculoskeletal: see HPI Skin: no symptoms reported Psychiatric/Neurological: No Symptoms Reported Past [id number]-[id number] Hx Patient Social History Type Used: Cigarettes Former Smoker, Quit: Mar 17, 2017 Recent Foreign Travel: No Contact w/Someone Who Travel: No Recent Hopitalizations: No Immunizations Up To Date Tetanus Booster (TDap): Unknown PED Vaccines UTD: Yes Date of Influenza Vaccine: Feb 22, 2017 Seasonal Allergies Seasonal Allergies: No Past Medical History Surgeries: Yes Respiratory: No Asthma Cardiac: No Neurological: No Reproductive Disorders: No Female Reproductive Disorders: Denies Sexually Transmitted Disease: No HIV/AIDS: No Genitourinary: No Gastrointestinal: No Musculoskeletal: No Endocrine: No HEENT: No Cancer: Yes Did You Recieve Any Treatments: Yes Psychosocial: No Integumentary: No Blood Disorders: No Adverse Reaction/Blood Tranf: No Family Medical History Cancer (breast cancer- fathers side) Family history: Cardiovascular disease (paternal grandfather) Stroke (maternal grandfather) No Pertinent Family Hx Physical Exam Vital Signs Capillary Refill : General Appearance: WD/WN, no apparent distress HEENT: PERRL/EOMI, normal ENT inspection Neck: non-tender, full range of motion Respiratory: no respiratory distress, no accessory muscle use Gastrointestinal: normal bowel sounds, non tender Shoulder: normal inspection, non-tender Elbow/Forearm: normal inspection, non-tender Wrist: Yes normal inspection, Yes non-tender Neurologic/Tendon: normal sensation, normal motor functions Neurologic/Psychiatric: alert, normal mood/affect, oriented x 3 Skin: normal color, warm/dry, other (small 3 mm vesicle side of the middle finger purplish in color without surrounding cellulitis. No lymphangitis but over the hypothenar eminence on the palmar aspect of the handthere is a 2 x 3 cm area of ecchymosis and tenderness to palpation) Departure Communication (Admissions) placed in a cockup wrist splint Impression Primary Impression: Insect bite Disposition: HOME, SELF-CARE Condition: Stable Departure-Patient Inst. Decision time for Depature: 16:05 Referrals: [facility]/ (PCP) Primary Care Physician ALESSIO ARTIS DO (Family) Primary Care Physician Patient Instructions: Spider Bites Add. Discharge Instructions: 1. I would agree this does appear consistent with a brown recluse spider bite. Ice pack to the area at 30 minute intervals as cool temperatures have been shown to limit the damage done to tissues by brown recluse venom. Wear the splint when you're up moving about, pain medication as directed, continue with antibiotics. Follow-up with your doctor next week for recheck. Return to ER for any worsening. Scripts Hydrocodone/Acetaminophen ([place] 5-325 Tablet) 1 Each Tablet 1 EACH PO Q4H PRN for PAIN-SEVERE, #14 TAB Prov: SUNDAR GEORGE APRN 07/16/17 Work/School Note: Work Release Form Date Seen in the Emergency Department: Jul 16, 2017 Return to Work: Jul 17, 2017 Other Restrictions Listed Below: no use of right hand until cleared SUNDAR GEORGE APRN Jul 16, 2017 16:07
[2017-07-16 16:08] VITALS: BP 132/78
== END 2017-07-16 16:12 | disposition home or self-care (01) ==
LOC: EDUNIT# 15:52 → ER 15:54
DX: S60.561A Insect bite (nonvenomous) of right hand, initial encounter (principal); J45.909 Unspecified asthma, uncomplicated; Z80.3 Family history of malignant neoplasm of breast; Z88.0 Allergy status to penicillin; Z79.02 Long term (current) use of antithrombotics/antiplatelets; Z87.891 Personal history of nicotine dependence; W57.XXXA Bitten or stung by nonvenomous insect and other nonvenomous arthropods, initial encounter
CPT/HCPCS: 99283

== ENCOUNTER 2017-10-20 12:27 | Emergency (ER) | payer SELFPAY ==
[~2017-10-20] VITALS: Ht 167.6 cm; Wt 113.4 kg
[~2017-10-20 12:27] MED LIST changes: +HYDR-4226 PO
[2017-10-20] MEDS ORDERED: RT-ALBUTEROL/IPRATROPIUM 3 ML (DUONEB) VIAL INH ONE (13:15)
--- NOTE | 2017-10-20 13:18 | ED Cough/URI ---
General Chief Complaint: Cough/Cold/Flu Symptoms Stated Complaint: SOA Nursing Triage Note: pt reports cough, cold, congestion x 2 days Source: patient, other Exam Limitations: no limitations History of Present Illness Date Seen by Provider: Oct 20, 2017 Time Seen by Provider: 12:55 Initial Comments Patient presents to ER by private conveyance with chief complaint of the last 2 days progressively worsening cough productive of yellow sputum. Wheezing, shortness of breath without any fevers chills nausea vomiting chest pain. She is a history of asthma and uses albuterol inhaler usually 2-3 times a day however she's been using it every 3 hours for the past 2 days. Her last use was about 3 hours ago. Allergies and Home Medications Allergies Coded Allergies: amoxicillin (Verified Allergy, Unknown, 08/20/05) cephalexin (Verified Allergy, Unknown, 08/20/05) latex (Verified Allergy, Unknown, 05/31/07) Home Medications Acetaminophen 500 Mg Tablet, 1,000 MG PO Q6H PRN for PAIN-MILD Prescribed by: ALESSIO ARTIS on 05/29/17 1434 Ferrous Sulfate 325 Mg Tablet, 325 MG PO DAILY@0700 Prescribed by: ALESSIO ARTIS on 05/29/17 1434 Hydrocodone/Acetaminophen 1 Each Tablet, 1 EACH PO Q4H PRN for PAIN-SEVERE Prescribed by: SUNDAR GEORGE on 07/16/17 1606 Ibuprofen 600 Mg Tablet, 600 MG PO Q6H Prescribed by: ALESSIO ARTIS on 05/29/17 1434 Patient Home Medication List Home Medication List Reviewed: Yes Review of Systems Review of Systems Constitutional: No chills, No diaphoresis, No fever; malaise EENTM: No ear discharge, No hearing loss, No ear pain Respiratory: cough, phlegm, short of breath; No stridor; wheezing Cardiovascular: No chest pain, No palpitations Gastrointestinal: No abdominal pain, No constipation Past Xsbmczw-Wvdwpa-Orifft Hx Patient Social History Alcohol Use: Denies Use Recreational Drug Use: No Smoking Status: Current Everyday Smoker Type Used: Cigarettes Former Smoker, Quit: Mar 17, 2017 2nd Hand Smoke Exposure: Yes Recent Foreign Travel: No Contact w/Someone Who Travel: No Recent Infectious Disease Expo: No Recent Hopitalizations: No Physical Abuse: No Sexual Abuse: No Mistreated: No Fear: No Immunizations Up To Date Tetanus Booster (TDap): Unknown PED Vaccines UTD: Yes Date of Influenza Vaccine: Feb 22, 2017 Seasonal Allergies Seasonal Allergies: No Past Medical History Surgeries: Yes (kidney sx) Respiratory: No Asthma Cardiac: No Neurological: No Reproductive Disorders: No Female Reproductive Disorders: Denies Sexually Transmitted Disease: No HIV/AIDS: No Genitourinary: No Gastrointestinal: No Musculoskeletal: No Endocrine: No Hyperthyroidism HEENT: No Cancer: Yes Did You Recieve Any Treatments: Yes Psychosocial: No Integumentary: No Blood Disorders: No Adverse Reaction/Blood Tranf: No Family Medical History Cancer (breast cancer- fathers side) Family history: Cardiovascular disease (paternal grandfather) Stroke (maternal grandfather) No Pertinent Family Hx Physical Exam Vital Signs - First Documented 10/20/17 12:39 Temp 97.9 Pulse 93 Resp 16 B/P (MAP) 140/68 (92) Pulse Ox 97 O2 Delivery Room Air Capillary Refill : Less Than 3 Seconds Height: 5'6.00" Weight: 250lbs. 0oz. 113.876796yp; 43.3 BMI Method:Stated General Appearance: WD/WN, no apparent distress Eyes: Bilateral Eye Normal Inspection, Bilateral Eye PERRL, Bilateral Eye EOMI HEENT: PERRL/EOMI, pharynx normal Respiratory: chest non-tender, rales (left lower base), wheezing (mild), expiration Cardiovascular: normal peripheral pulses, regular rate, rhythm Progress/Results/Core Measures Suspected Sepsis Recent Fever Within 48 Hours: No Infection Criteria Present: None New/Unexplained Altered Menta: No Sepsis Screen: No Definite Risk SIRS Temperature:97.9 Pulse: 93 Respiratory Rate: 16 Blood Pressure 140 /68 Mean: 92 Results/Orders My Orders Orders - AUSTIN FUENTES Chest Pa/Lat (2 View) (10/20/17 13:06) Albuterol/Ipra Inhalation Soln (Duoneb I (10/20/17 13:15) Svn Small Volume Nebulizer (10/20/17 13:06) Medications Given in ED Current Medications Medications Dose Ordered Sig/Jayesh Route Start Time Stop Time Status Last Admin Dose Admin Albuterol/ Ipratropium 3 ml ONCE ONCE INH 10/20/17 13:15 10/20/17 13:16 DC 10/20/17 13:39 3 ML Vital Signs/I&O 10/20/17 10/20/17 10/20/17 12:39 12:39 13:39 Temp 97.9 Pulse 93 Resp 16 B/P (MAP) 140/68 (92) Pulse Ox 97 97 O2 Delivery Room Air Room Air Capillary Refill : Less Than 3 Seconds Blood Pressure Mean: 92 Progress Note #1: Time: 13:17 Progress Note Aseptic vital signs little bit of wheezing and maybe some slight crackles in the left lower base. We will give her a breathing treatment and reassess her and also give her a prescription for some albuterol for her nebulizer that she is ran out of. We'll get chest x-ray to make sure there is no infiltrate if there is we'll put her on some antibiotics but she appears otherwise very well. If she does not respond well to the albuterol then we will add steroids outpatient. Progress Note #2: Time: 13:50 Progress Note She still having some wheezing although she subjectively feeling much better. She's having a little bit lightheadedness when she stands up so regular couple days off work but her on some steroids and sent some albuterol prescription to the pharmacy. Diagnostic Imaging Diagonstic Imaging: Xray Plain Films/CT/US/NM/MRI: chest (2v) Comments VIA [facility], [facility]. [place], [place] NAME: [facility] REC#: [id number] PT STATUS: REG ER : 1980 PHYSICIAN: AUSTIN FUENTES MD ADMIT DATE: 10/20/17/ER Draft Date of Exam:10/20/17 CHEST PA/LAT (2 VIEW) Indication: Congestion and difficulty breathing. Time of exam: 1:45 PM Correlation is made with prior study 10/23/2015. Heart size is stable. Calcified granuloma right lower lobe appears stable. No infiltrate is seen. No effusion is identified. The pulmonary vascularity is normal. No pneumothorax is identified. Impression: Stable chest. No acute features detected. Dictated on workstation # [id number] Dict: 10/20/17 1328 Trans: 10/20/17 1330 CV [id number] Interpreted by: JOYCE CASTREJON MD Electronically signed by: Reviewed: Reviewed by Me Departure Impression Primary Impression: Asthma exacerbation Qualified Codes: J45.901 - Unspecified asthma with (acute) exacerbation Disposition: 01 HOME, SELF-CARE Condition: Improved Departure-Patient Inst. Decision time for Depature: 13:51 Referrals: [facility]/ (PCP) Primary Care Physician ALESSIO ARTIS DO (Family) Primary Care Physician Patient Instructions: Acute Bronchitis, Adult (DC) Add. Discharge Instructions: Use the albuterol inhaler or nebulizer every 4 hours as needed. You can use it every 6 hours on a scheduled basis. Follow-up with your primary care provider in the next 7-10 days for recheck or sooner if you're having fevers chills nausea vomiting or other problems. Return to the ER if you're having difficulty breathing or chest pain. Take 2 tablets of the steroids every day for the next 5 days. All discharge instructions reviewed with patient and/or family. Voiced understanding. Scripts Albuterol Sulfate (Albuterol Sulfate) 2.5 Mg/3 Ml Vial.neb 2.5 MG IH Q4H PRN for WHEEZING for 30 Days, #60 EA 0 Refills Prov: AUSTIN FUENTES 10/20/17 Prednisone (Prednisone) 20 Mg Tab 40 MG PO DAILY for 5 Days, #10 TAB 0 Refills Prov: AUSTIN FUENTES 10/20/17 Albuterol Sulfate (PROAIR HFA) 1 Puff Puff 2 PUFF IH Q4H, #1 EACH 0 Refills 1 PUFF = 90 MCG Prov: AUSTIN FUENTES 10/20/17 Work/School Note: Work Release Form Date Seen in the Emergency Department: Oct 20, 2017 Return to Work: Oct 22, 2017 Restrictions: No Restrictions Copy Copies To 1: THERESE LI TITUS J Oct 20, 2017 13:18
--- NOTE | 2017-10-20 13:31 | Diagnostic Imaging Report ---
Indication: Congestion and difficulty breathing. Time of exam: 1:45 PM Correlation is made with prior study 10/23/2015. Heart size is stable. Calcified granuloma right lower lobe appears stable. No infiltrate is seen. No effusion is identified. The pulmonary vascularity is normal. No pneumothorax is identified. Impression: Stable chest. No acute features detected. Dictated by: Dictated on workstation # [id number]
[2017-10-20] MEDS ORDERED: PRD20T PO (13:53)
[2017-10-20] MEDS ORDERED: RT-ALBUINH IH (13:53)
[2017-10-20] MEDS ORDERED: ALBU2.5V4 IH (13:55)
[2017-10-20] MEDS ORDERED: RX-ALBUTEROL NEB 2.5 MG/3 ML PACK #5 IH STA (14:03)
[2017-10-20 14:08] VITALS: BP 132/70
== END 2017-10-20 14:08 | disposition home or self-care (01) ==
LOC: ER 12:27
DX: J45.901 Unspecified asthma with (acute) exacerbation (principal); E05.90 Thyrotoxicosis, unspecified without thyrotoxic crisis or storm; Z87.891 Personal history of nicotine dependence; Z79.51 Long term (current) use of inhaled steroids; Z88.0 Allergy status to penicillin; Z80.3 Family history of malignant neoplasm of breast; Z82.49 Family history of ischemic heart disease and other diseases of the circulatory system; Z91.040 Latex allergy status; Z79.02 Long term (current) use of antithrombotics/antiplatelets
CPT/HCPCS: 71046; 94640

== ENCOUNTER 2018-08-24 20:23 | Emergency (ER) | payer MEDICAID, OTHER ==
[~2018-08-24] VITALS: Ht 167.6 cm; Wt 106.6 kg
[~2018-08-24 20:23] MED LIST changes: +ALBU2.5V4 IH
--- NOTE | 2018-08-24 20:42 | ED General ---
General Chief Complaint: Cough/Cold/Flu Symptoms Stated Complaint: COUGH,SOB Nursing Triage Note: pt has been coughing for the last week that has cause SOB. Pt also having n/v/d. Pt denies pain Nursing Sepsis Screen: No Definite Risk Source of Information: Patient Exam Limitations: No Limitations History of Present Illness Date Seen by Provider: Aug 24, 2018 Time Seen by Provider: 20:40 Initial Comments To ER with productive cough, slight shortness of breath, occasional wheezing, nausea vomiting diarrhea for about 3 days. She is 16 weeks . Timing/Duration: 1-2 Days Severity: Moderate Associated Systoms: Cough Allergies and Home Medications Allergies Coded Allergies: amoxicillin (Verified Allergy, Unknown, 08/20/05) cephalexin (Verified Allergy, Unknown, 08/20/05) latex (Verified Allergy, Unknown, 05/31/07) Home Medications Acetaminophen 500 Mg Tablet, 1,000 MG PO Q6H PRN for PAIN-MILD Prescribed by: ALESSIO ARTIS on 05/29/17 1434 Albuterol Sulfate 1 Puff Puff, 2 PUFF IH Q4H 1 PUFF = 90 MCG Prescribed by: AUSTIN FUENTES on 10/20/17 1353 Albuterol Sulfate 2.5 Mg/3 Ml Vial.neb, 2.5 MG IH Q4H PRN for WHEEZING Prescribed by: AUSTIN FUENTES on 10/20/17 1355 Ferrous Sulfate 325 Mg Tablet, 325 MG PO DAILY@0700 Prescribed by: ALESSIO ARTIS on 05/29/17 1434 Hydrocodone/Acetaminophen 1 Each Tablet, 1 EACH PO Q4H PRN for PAIN-SEVERE Prescribed by: SUNDAR GEORGE on 07/16/17 1606 Ibuprofen 600 Mg Tablet, 600 MG PO Q6H Prescribed by: ALESSIO ARTIS on 05/29/17 1434 Prednisone 20 Mg Tab, 40 MG PO DAILY Prescribed by: AUSTIN FUENTES on 10/20/17 1353 Patient Home Medication List Home Medication List Reviewed: Yes Review of Systems Review of Systems Constitutional: see HPI EENTM: see HPI Respiratory: see HPI, cough Cardiovascular: no symptoms reported Genitourinary: no symptoms reported Musculoskeletal: no symptoms reported Skin: no symptoms reported Psychiatric/Neurological: No Symptoms Reported Hematologic/Lymphatic: No Symptoms Reported Past Ucnzdgb-Ngijhr-Palulx Hx Patient Social History Type Used: Cigarettes Former Smoker, Quit: Mar 17, 2017 2nd Hand Smoke Exposure: Yes Recent Foreign Travel: No Contact w/Someone Who Travel: No Recent Infectious Disease Expo: No Recent Hopitalizations: No Immunizations Up To Date Tetanus Booster (TDap): Unknown PED Vaccines UTD: Yes Date of Influenza Vaccine: Feb 22, 2017 Seasonal Allergies Seasonal Allergies: No Past Medical History Surgeries: Yes (kidney sx) Respiratory: No Asthma Cardiac: No Neurological: No Reproductive Disorders: No Female Reproductive Disorders: Denies Sexually Transmitted Disease: No HIV/AIDS: No Genitourinary: No Gastrointestinal: No Musculoskeletal: No Endocrine: No Hyperthyroidism HEENT: No Cancer: Yes Did You Recieve Any Treatments: Yes Psychosocial: No Integumentary: No Blood Disorders: No Adverse Reaction/Blood Tranf: No Family Medical History Cancer (breast cancer- fathers side) Family history: Cardiovascular disease (paternal grandfather) Stroke (maternal grandfather) No Pertinent Family Hx Physical Exam Vital Signs Vital Signs - First Documented 08/24/18 20:27 Temp 98.7 Pulse 98 Resp 22 B/P (MAP) 151/67 (95) Pulse Ox 99 O2 Delivery Room Air Capillary Refill : Less Than 3 Seconds Height, Weight, BMI Height: 5'6.00" Weight: 235lbs. 0oz. 106.714601cs; 43.3 BMI Method:Stated General Appearance: No Apparent Distress, WD/WN Eyes: Bilateral Eye Normal Inspection, Bilateral Eye PERRL, Bilateral Eye EOMI Neck: Full Range of Motion, Normal Inspection Respiratory: No Accessory Muscle Use, No Respiratory Distress, Other (faint expiratory wheeze throughout the left lung with otherwise good air movement, clear on the right) Cardiovascular: Regular Rate, Rhythm, Normal Peripheral Pulses Gastrointestinal: Normal Bowel Sounds, Non Tender, Soft Extremity: Normal Capillary Refill, Normal Inspection Neurologic/Psychiatric: Alert, Oriented x3 Skin: Normal Color, Warm/Dry Progress/Results/Core Measures Suspected Sepsis Recent Fever Within 48 Hours: No Infection Criteria Present: None New/Unexplained Altered Menta: No Sepsis Screen: No Definite Risk SIRS Temperature:98.7 Pulse: 98 Respiratory Rate: 22 Laboratory Tests 08/24/18 20:50: White Blood Count 10.2 Blood Pressure 151 /67 Mean: 95 Laboratory Tests 08/24/18 20:50: Creatinine 0.66, Platelet Count 302 Results/Orders Lab Results Laboratory Tests Test 08/24/18 20:50 Range/Units White Blood Count 10.2 4.3-11.0 10^3/uL Red Blood Count 4.43 4.35-5.85 10^6/uL Hemoglobin 12.8 11.5-16.0 G/DL Hematocrit 38 35-52 % Mean Corpuscular Volume 86 80-99 FL Mean Corpuscular Hemoglobin 29 25-34 PG Mean Corpuscular Hemoglobin Concent 34 32-36 G/DL Red Cell Distribution Width 14.9 H 10.0-14.5 % Platelet Count 302 130-400 10^3/uL Mean Platelet Volume 10.8 H 7.4-10.4 FL Neutrophils (%) (Auto) 82 H 42-75 % Lymphocytes (%) (Auto) 13 12-44 % Monocytes (%) (Auto) 4 0-12 % Eosinophils (%) (Auto) 1 0-10 % Basophils (%) (Auto) 0 0-10 % Neutrophils # (Auto) 8.4 H 1.8-7.8 X 10^3 Lymphocytes # (Auto) 1.3 1.0-4.0 X 10^3 Monocytes # (Auto) 0.4 0.0-1.0 X 10^3 Eosinophils # (Auto) 0.1 0.0-0.3 10^3/uL Basophils # (Auto) 0.0 0.0-0.1 10^3/uL Sodium Level 138 135-145 MMOL/L Potassium Level 3.3 L 3.6-5.0 MMOL/L Chloride Level 106 98-107 MMOL/L Carbon Dioxide Level 17 L 21-32 MMOL/L Anion Gap 15 H 5-14 MMOL/L Blood Urea Nitrogen 5 L 7-18 MG/DL Creatinine 0.66 0.60-1.30 MG/DL Estimat Glomerular Filtration Rate > 60 BUN/Creatinine Ratio 8 Glucose Level 106 H 70-105 MG/DL Calcium Level 9.6 8.5-10.1 MG/DL My Orders Orders - SUNDAR GEORGE APRN Cbc With Automated Diff (08/24/18 20:34) Basic Metabolic Panel (08/24/18 20:34) Ua Culture If Indicated (08/24/18 20:34) Ed Iv/Invasive Line Start (08/24/18 20:34) Chest 1 View, Ap/Pa Only (08/24/18 20:39) Albuterol/Ipra Inhalation Soln (Duoneb I (08/24/18 20:45) Lactated Ringers (Lr 1000 Ml Iv Solution (08/24/18 20:45) Svn Small Volume Nebulizer (08/24/18 20:39) Heart Tones (08/24/18 20:42) Bupivacaine 0.5% Injection (Sensorcaine (08/24/18 21:15) Potassium Chloride (Tablet) (K Dur Table (08/24/18 21:30) Medications Given in ED Current Medications Medications Dose Ordered Sig/Jayesh Route Start Time Stop Time Status Last Admin Dose Admin Albuterol/ Ipratropium 3 ml ONCE ONCE INH 08/24/18 20:45 08/24/18 20:46 DC 08/24/18 21:08 3 ML Potassium Chloride 40 meq ONCE ONCE PO 08/24/18 21:30 08/24/18 21:31 DC 08/24/18 22:01 40 MEQ Vital Signs/I&O 08/24/18 20:27 Temp 98.7 Pulse 98 Resp 22 B/P (MAP) 151/67 (95) Pulse Ox 99 O2 Delivery Room Air Capillary Refill : Less Than 3 Seconds Blood Pressure Mean: 95 Departure Impression Primary Impression: Asthmatic bronchitis Qualified Codes: J45.20 - Mild intermittent asthma, uncomplicated Disposition: 01 HOME, SELF-CARE Condition: Improved Departure-Patient Inst. Decision time for Depature: 22:09 Referrals: [facility] (PCP/Family) Primary Care Physician Patient Instructions: Acute Bronchitis, Adult (DC) Add. Discharge Instructions: . Antibiotic as directed 2. Return to ER for any concerns 3. All discharge instructions reviewed with patient and/or family. Voiced understanding. Scripts Azithromycin (Azithromycin) 250 Mg Tablet 250 MG PO UD, #6 TAB TAKE 2 TABLETS ON DAY ONE THEN TAKE 1 TABLET DAILY FOR FOUR MORE DAYS Prov: SUNDAR GEORGE APRN 08/24/18 Work/School Note: Work Release Form Date Seen in the Emergency Department: Aug 24, 2018 Return to Work: Aug 26, 2018 SUNDAR GEORGE APRN Aug 24, 2018 20:42
[2018-08-24] MEDS ORDERED: RT-ALBUTEROL/IPRATROPIUM 3 ML (DUONEB) VIAL INH ONE (20:45)
[2018-08-24] MEDS ORDERED: LACTATED RINGERS 1,000 ML IV SCH (20:45)
[2018-08-24 21:03] LABS: BASOPHILS % (AUTO) 0 % (0-10); EOSINOPHILS # (AUTO) 0.1 10^3/uL (0.0-0.3); EOSINOPHILS % (AUTO) 1 % (0-10); HEMATOCRIT 38 % (35-52); HEMOGLOBIN 12.8 G/DL (11.5-16.0); LYMPHOCYTES # (AUTO) 1.3 X 10^3 (1.0-4.0); LYMPHOCYTES % (AUTO) 13 % (12-44); MEAN CORPUSCULAR HEMOGLOBIN 29 PG (25-34); MEAN CORPUSCULAR HGB CONC 34 G/DL (32-36); MEAN CORPUSCULAR VOLUME 86 FL (80-99); MEAN PLATELET VOLUME 10.8 FL (7.4-10.4); MONOCYTES # (AUTO) 0.4 X 10^3 (0.0-1.0); MONOCYTES % (AUTO) 4 % (0-12); NEUTROPHILS # (AUTO) 8.4 X 10^3 (1.8-7.8); NEUTROPHILS % (AUTO) 82 % (42-75); PLATELET COUNT 302 10^3/uL (130-400); RED CELL DISTRIBUTION WIDTH 14.9 % (10.0-14.5); WHITE BLOOD COUNT 10.2 10^3/uL (4.3-11.0)
[2018-08-24] MEDS ORDERED: BUPIVACAINE 0.5% 30 ML (SENSORCAINE) VIAL INJ ONE (21:15)
[2018-08-24 21:18] LABS: BUN/CREATININE RATIO 8; CALCIUM 9.6 MG/DL (8.5-10.1); CARBON DIOXIDE 17 MMOL/L (21-32); CHLORIDE 106 MMOL/L (98-107); CREATININE SERUM 0.66 MG/DL (0.60-1.30); GFR ESTIMATED > 60; GLUCOSE 106 MG/DL (70-105); POTASSIUM 3.3 MMOL/L (3.6-5.0); SODIUM 138 MMOL/L (135-145)
[2018-08-24] MEDS ORDERED: KCL 20 MEQ TAB (K-DUR) PO ONE (21:30)
--- NOTE | 2018-08-24 22:08 | Diagnostic Imaging Report ---
INDICATION: Cough, shortness of air, 16 weeks . Consent signed prior to imaging and patient shielded. EXAMINATION: Single view chest 08/24/2018 COMPARISON: 10/20/2017 FINDINGS: The rounded density in the right midlung is stable, possibly a calcified granuloma. The remaining lungs are clear. There are no infiltrates or effusions. No pneumothorax. Heart and pulmonary vasculature are unremarkable. IMPRESSION: 1. Chronic findings, stable. No acute process. Dictated by: Dictated on workstation # [id number]
[2018-08-24] MEDS ORDERED: AZIT250T12 PO (22:10)
[2018-08-24] MEDS ORDERED: RX-ALBUTEROL NEB 2.5 MG/3 ML PACK #5 IH STA (22:43)
[2018-08-24] MEDS ORDERED: PROMETHAZINE/ CODEINE SYRUP 5 ML UDC PO ONE (23:00)
--- NOTE | 2018-08-24 23:00 | NUR ---
VERBAL ORDER FROM SUNDAR GEORGE APRN TO STOP FLUIDS.
[2018-08-24 23:16] VITALS: BP 112/64
== END 2018-08-24 23:16 | disposition home or self-care (01) ==
LOC: EDUNIT# 20:23 → ER 20:24
DX: O99.512 Diseases of the respiratory system complicating pregnancy, second trimester (principal); J45.909 Unspecified asthma, uncomplicated; O99.282 Endocrine, nutritional and metabolic diseases complicating pregnancy, second trimester; E05.90 Thyrotoxicosis, unspecified without thyrotoxic crisis or storm; Z88.1 Allergy status to other antibiotic agents; Z91.040 Latex allergy status; Z87.891 Personal history of nicotine dependence; Z80.3 Family history of malignant neoplasm of breast; Z82.49 Family history of ischemic heart disease and other diseases of the circulatory system; Z3A.16 16 weeks gestation of pregnancy
CPT/HCPCS: 36415; 71045; 80048; 85025; 96360; 96361

== ENCOUNTER 2018-11-03 18:55 | Outpatient (CLI) | payer MEDICAID ==
[~2018-11-03] VITALS: Ht 167.7 cm; Wt 111.5 kg
--- NOTE | 2018-11-03 08:38 | NUR ---
straight cath performed by daniela GREY. aseptic technique scant amount of dark mt urine removed with catheter. Addendum: 11/03/18 at 2110 by FARZANA QUINTEROS RN happened at 2037
[~2018-11-03 18:55] MED LIST changes: +AZIT250T12 PO
--- NOTE | 2018-11-03 19:00 | NUR ---
ORESTES JUÁREZ presented to unit via ambulation from ED, with c/o N/V, and diarrhea. ORESTES JUÁREZ weighed, gowned, voided, and to bed. EFHM and TOCO applied, VS taken. ORESTES JUÁREZ oriented to bed controls, call light, TV, heat, and A/C controls.
[2018-11-03 20:05] VITALS: BP 118/59
--- NOTE | 2018-11-03 20:05 | NUR ---
report from Natalia GREY.
--- NOTE | 2018-11-03 20:10 | NUR ---
SVE per Kev Bolaños RN. Cervix closed.
--- NOTE | 2018-11-03 20:16 | NUR ---
Dr. Nance notified of patient arrival, complaints, SVE, and monitor strip. Orders received for IV, fluids, zofran, imodium, straight cath, and bloodwork.
[2018-11-03] MEDS ORDERED: D5 LR IV SOLUTION 1,000 ML IV ONE (20:21)
--- NOTE | 2018-11-03 20:25 | NUR ---
iv started and iv fluids infusing at 500cc/hr.
[2018-11-03] MEDS ORDERED: ONDANSETRON 4 MG/2 ML (SDV) Z0FRAN IVP PRN (20:30)
[2018-11-03] MEDS ORDERED: LOPERAMIDE 2 MG (IMODIUM) TABLET PO ONE (20:30)
[2018-11-03] MEDS: D5 LR IV SOLUTION 1,000 ML IV SCH (20:30)
[2018-11-03 20:57] LABS: CLARITY,URINE CLEAR; GLUCOSE, URINE (UA) NEGATIVE (NEGATIVE); KETONES,URINE 2+ (NEGATIVE); LEUKOCYTE ESTERASE ,URINE 2+ (NEGATIVE); NITRITE,URINE NEGATIVE (NEGATIVE); PH,URINE 6 (5-9); PROTEIN,URINE 2+ (NEGATIVE); UROBILINOGEN,URINE 4 MG/DL (NORMAL)
[2018-11-03 21:04] LABS: COLOR,URINE AMBER
[2018-11-03 21:07] LABS: BACTERIA,URINE FEW /HPF; BILIRUBIN,URINE 1+ (NEGATIVE); RBC,URINE RARE /HPF; WBC,URINE 0-2 /HPF
--- NOTE | 2018-11-03 21:15 | NUR ---
reports episode of diarrhea and slight nausea. request zofran. see eMAR>
[2018-11-03 22:19] LABS: BASOPHILS % (AUTO) 0 % (0-10); EOSINOPHILS # (AUTO) 0.3 10^3/uL (0.0-0.3); EOSINOPHILS % (AUTO) 3 % (0-10); HEMATOCRIT 34 % (35-52); HEMOGLOBIN 11.1 G/DL (11.5-16.0); LYMPHOCYTES # (AUTO) 1.4 X 10^3 (1.0-4.0); LYMPHOCYTES % (AUTO) 13 % (12-44); MEAN CORPUSCULAR HEMOGLOBIN 29 PG (25-34); MEAN CORPUSCULAR HGB CONC 33 G/DL (32-36); MEAN CORPUSCULAR VOLUME 90 FL (80-99); MEAN PLATELET VOLUME 10.3 FL (7.4-10.4); MONOCYTES # (AUTO) 0.8 X 10^3 (0.0-1.0); MONOCYTES % (AUTO) 8 % (0-12); NEUTROPHILS # (AUTO) 8.3 X 10^3 (1.8-7.8); NEUTROPHILS % (AUTO) 77 % (42-75); PLATELET COUNT 252 10^3/uL (130-400); RED CELL DISTRIBUTION WIDTH 15.3 % (10.0-14.5); WHITE BLOOD COUNT 10.8 10^3/uL (4.3-11.0)
--- NOTE | 2018-11-03 23:01 | NUR ---
efm removed. no contractions or distress. will obtain NST early in the AM.
[2018-11-03 23:46] LABS: ALANINE AMINOTRANSFERASE 7 U/L (0-55); ALKALINE PHOSPHATASE 93 U/L (40-136); BILIRUBIN,TOTAL 0.2 MG/DL (0.1-1.0); BUN/CREATININE RATIO 8; CALCIUM 7.5 MG/DL (8.5-10.1); CARBON DIOXIDE 18 MMOL/L (21-32); CHLORIDE 109 MMOL/L (98-107); CREATININE SERUM 0.59 MG/DL (0.60-1.30); GFR ESTIMATED > 60; GLUCOSE 108 MG/DL (70-105); POTASSIUM 3.2 MMOL/L (3.6-5.0); SODIUM 136 MMOL/L (135-145); TOTAL PROTEIN 6.1 GM/DL (6.4-8.2)
[2018-11-03 23:48] LABS: BAND NEUTROPHILS 3 %; BASOPHILS % (MANUAL) 0 %; EOSINOPHILS % (MANUAL) 2 %; LYMPHOCYTES % (MANUAL) 19 %; MONOCYTES % (MANUAL) 2 %; NEUTROPHILS % (MANUAL) 74 %
[2018-11-03 23:49] LABS: RBC MORPH NORMAL
--- NOTE | 2018-11-04 01:00 | NUR ---
patient resting quietly. voices no c/o.
[2018-11-04] MEDS: D5 LR IV SOLUTION 1,000 ML IV SCH (05:40)
[2018-11-04 06:49] VITALS: BP 110/56
[2018-11-04] MEDS ORDERED: LOPERAMIDE 2 MG (IMODIUM) TABLET ONE (08:06)
--- NOTE | 2018-11-04 08:07 | History & Physical ---
History and Physical Date Seen by Provider: Nov 04, 2018 Time Seen by Provider: 08:04 This patient is a 38-year-old G2 11 PT and patient of Dr. Artis who presented with complaint of nausea vomiting and diarrhea for 3 days. She is currently 28- 3/7 weeks gestation. She apparently has no problems with this . She is admitted for observation and hydration and supportive care. Allergies are to amoxicillin cephalexin and latex Medications are vitamins Medical social and surgical histories are per the antepartum record HEENT exam is normal Neck is supple no lymphadenopathy no thyromegaly Abdomen is gravid soft nontender nondistended Extremities show no clubbing cyanosis. There is no Homans sign. Pelvic exam is deferred Laboratory Tests Test 11/03/18 20:38 11/03/18 22:10 Range/Units Urine Color CARLOS H Urine Clarity CLEAR Urine pH 6 5-9 Urine Specific [place] 1.015 L 1.016-1.022 Urine Protein 2+ H NEGATIVE Urine Glucose (UA) NEGATIVE NEGATIVE Urine Ketones 2+ H NEGATIVE Urine Nitrite NEGATIVE NEGATIVE Urine Bilirubin 1+ H NEGATIVE Urine Urobilinogen 4 H NORMAL MG/DL Urine Leukocyte Esterase 2+ H NEGATIVE Urine RBC (Auto) NEGATIVE NEGATIVE Urine RBC RARE /HPF Urine WBC 0-2 /HPF Urine Squamous Epithelial Cells 2-5 /HPF Urine Crystals NONE /LPF Urine Bacteria FEW H /HPF Urine Casts NONE /LPF Urine Mucus MODERATE H /LPF Urine Culture Indicated YES White Blood Count 10.8 4.3-11.0 10^3/uL Red Blood Count 3.80 L 4.35-5.85 10^6/uL Hemoglobin 11.1 L 11.5-16.0 G/DL Hematocrit 34 L 35-52 % Mean Corpuscular Volume 90 80-99 FL Mean Corpuscular Hemoglobin 29 25-34 PG Mean Corpuscular Hemoglobin Concent 33 32-36 G/DL Red Cell Distribution Width 15.3 H 10.0-14.5 % Platelet Count 252 130-400 10^3/uL Mean Platelet Volume 10.3 7.4-10.4 FL Neutrophils (%) (Auto) 77 H 42-75 % Lymphocytes (%) (Auto) 13 12-44 % Monocytes (%) (Auto) 8 0-12 % Eosinophils (%) (Auto) 3 0-10 % Basophils (%) (Auto) 0 0-10 % Neutrophils # (Auto) 8.3 H 1.8-7.8 X 10^3 Lymphocytes # (Auto) 1.4 1.0-4.0 X 10^3 Monocytes # (Auto) 0.8 0.0-1.0 X 10^3 Eosinophils # (Auto) 0.3 0.0-0.3 10^3/uL Basophils # (Auto) 0.0 0.0-0.1 10^3/uL Neutrophils % (Manual) 74 % Lymphocytes % (Manual) 19 % Monocytes % (Manual) 2 % Eosinophils % (Manual) 2 % Basophils % (Manual) 0 % Band Neutrophils 3 % Blood Morphology Comment NORMAL Sodium Level 136 135-145 MMOL/L Potassium Level 3.2 L 3.6-5.0 MMOL/L Chloride Level 109 H 98-107 MMOL/L Carbon Dioxide Level 18 L 21-32 MMOL/L Anion Gap 9 5-14 MMOL/L Blood Urea Nitrogen 5 L 7-18 MG/DL Creatinine 0.59 L 0.60-1.30 MG/DL Estimat Glomerular Filtration Rate > 60 BUN/Creatinine Ratio 8 Glucose Level 108 H 70-105 MG/DL Calcium Level 7.5 L 8.5-10.1 MG/DL Corrected Calcium 8.3 L 8.5-10.1 MG/DL Total Bilirubin 0.2 0.1-1.0 MG/DL Aspartate Amino Transf (AST/SGOT) 10 5-34 U/L Alanine Aminotransferase (ALT/SGPT) 7 0-55 U/L Alkaline Phosphatase 93 40-136 U/L Total Protein 6.1 L 6.4-8.2 GM/DL Albumin 3.0 L 3.2-4.5 GM/DL monitor shows rare contractions and a normal heart rate pattern Assessment and plan likely viral gastroenteritis improving with IV hydration and supportive care. We'll continue current management until patient feels ready for discharge home and then we'll allow follow-up in clinic Viral gastroenteritis Allergies and Home Medications Allergies Coded Allergies: amoxicillin (Verified Allergy, Unknown, 08/20/05) cephalexin (Verified Allergy, Unknown, 08/20/05) latex (Verified Allergy, Unknown, 05/31/07) Home Medications Acetaminophen 500 Mg Tablet, 1,000 MG PO Q6H PRN for PAIN-MILD Prescribed by: ALESSIO ARTIS on 05/29/17 1434 Albuterol Sulfate 1 Puff Puff, 2 PUFF IH Q4H 1 PUFF = 90 MCG Prescribed by: AUSTIN FUENTES on 10/20/17 1353 Albuterol Sulfate 2.5 Mg/3 Ml Vial.neb, 2.5 MG IH Q4H PRN for WHEEZING Prescribed by: AUSTIN FUENTES on 10/20/17 1355 Azithromycin 250 Mg Tablet, 250 MG PO UD TAKE 2 TABLETS ON DAY ONE THEN TAKE 1 TABLET DAILY FOR FOUR MORE DAYS Prescribed by: SUNDAR GEORGE on 08/24/18 2210 Ferrous Sulfate 325 Mg Tablet, 325 MG PO DAILY@0700 Prescribed by: ALESSIO ARTIS on 05/29/17 1434 Hydrocodone/Acetaminophen 1 Each Tablet, 1 EACH PO Q4H PRN for PAIN-SEVERE Prescribed by: SUNDAR GEORGE on 07/16/17 1606 Ibuprofen 600 Mg Tablet, 600 MG PO Q6H Prescribed by: ALESSIO ARTIS on 05/29/17 1434 Prednisone 20 Mg Tab, 40 MG PO DAILY Prescribed by: AUSTIN FUENTES on 10/20/17 1353 Patient Home Medication List Home Medication List Reviewed: MAHESH Tineo MD Nov 04, 2018 08:07
[2018-11-04 08:10] VITALS: BP 118/52
--- NOTE | 2018-11-04 09:20 | NUR ---
PT LYING IN BED, MOTHER AT THE BEDSIDE. INITIAL SHIFT ASSESSMENT COMPLETED; SEE INTERVENTION FOR FURTHER. FLUIDS CONTINUE INFUSING WITHOUT DIFFICULTY. POC REVIEWED, PT VERBALIZES UNDERSTANDING. CALL LIGHT WITHIN REACH.
--- NOTE | 2018-11-04 09:40 | NUR ---
PT CALLED OUT, PT READY TO BE DISCHARGED.
--- NOTE | 2018-11-04 09:55 | NUR ---
DISCHARGE PAPERS PROVIDED AND REVIEWED WITH PT, PT VERBALIZES UNDERSTANDING AND DENIES ANY QUESTIONS AT THIS TIME. PAPER SIGNED.
--- NOTE | 2018-11-04 09:57 | NUR ---
PT DISCHARGED FROM -[facility] TO PERSONAL AUTO VIA AMBULATORY IN STABLE CONDITION ACC BY MOTHER.
== END 2018-11-04 09:57 | disposition home or self-care (01) ==
LOC: LDRP 18:55 → WSo 18:55
PROVIDERS: ATTEND Obstetrics & Gynecology
DX: Z34.93 Encounter for supervision of normal pregnancy, unspecified, third trimester (principal); Z3A.28 28 weeks gestation of pregnancy
CPT/HCPCS: 36415; 80053; 81000; 85007; 85027; 87088; 96361; 96374; 99214

== ENCOUNTER → 2018-11-15 | Outpatient (CLI) | payer MEDICAID ==
--- NOTE | 2018-11-15 15:49 | Diagnostic Imaging Report ---
INDICATION: Second trimester bleeding. TECHNIQUE: Multiple real-time grayscale images were obtained over the gravid uterus. COMPARISON: None. FINDINGS: There is a single live fetus in a breech presentation. heart rate was recorded at 140 beats per minute. Placenta is posterior and low lying versus marginal in location. Amniotic fluid volume is normal. Cervical length is 3.7 cm. survey demonstrates kidneys, bladder, and stomach to be unremarkable. The brain is unremarkable. There is a four-chamber heart. There is a three-vessel cord with normal insertion. spine is unremarkable. Maternal adnexa were not evaluated. Biometrical measurements are as follows: Biparietal 7.49 cm, age 30 weeks 1 days. Head circumference 27.56 cm, age 30 weeks 1 days. Abdominal circumference 25.57 cm, age 29 weeks 6 days. Femur length 5.80 cm, age 30 weeks 3 days. Sonographic estimate age: 30 weeks 1 days. Sonographic estimated date of delivery: 01/23/2019. Estimated Weight: 1492 gm (+/- 218 gm). LMP percentile: 32%. heart rate: 140 beats per minute. number: 1 of 1. IMPRESSION: Single live IUP of approximately 30 weeks 1 day gestational age. Estimated date of confinement sonographically is 01/23/2019. Note is made of a posterior low-lying placenta versus marginal placenta. Follow-up could be performed later in the third trimester. Dictated by: Dictated on workstation # [id number]
== END ==
LOC: RAD 14:06
PROVIDERS: ATTEND Obstetrics & Gynecology
DX: O46.93 Antepartum hemorrhage, unspecified, third trimester (principal); Z3A.30 30 weeks gestation of pregnancy
CPT/HCPCS: 76805

== ENCOUNTER → 2018-12-14 | Outpatient (CLI) | payer MEDICAID ==
--- NOTE | 2018-12-14 15:26 | Diagnostic Imaging Report ---
INDICATION: Placenta previa. TECHNIQUE: Multiple real-time grayscale sonographic images were obtained of the gravid uterus, transabdominally . CORRELATION STUDY: 11/15/2018. FINDINGS: Single viable intrauterine currently in cephalic presentation. There is presence of borderline polyhydramnios, index at 20.3 cm. heart activity at 128 beats per minute. The placenta is along the posterior fundal aspect. No suggestion for previa at follow-up assessment. IMPRESSION: 1. Limited obstetrical sonogram imaging demonstrates a fetus in a cephalic presentation. A posteriorly positioned low-lying placenta but without evidence for previa. Dictated by: Dictated on workstation # [id number]
== END ==
LOC: RAD 12:50
PROVIDERS: ATTEND Nurse Practitioner Women's Health
DX: O44.40 Low lying placenta NOS or without hemorrhage, unspecified trimester (principal); Z3A.00 Weeks of gestation of pregnancy not specified
CPT/HCPCS: 76815

== ENCOUNTER 2018-12-15 01:48 | Outpatient (CLI) | payer MEDICAID ==
[~2018-12-15] VITALS: Ht 167.7 cm; Wt 121.0 kg
--- NOTE | 2018-12-15 01:55 | NUR ---
ORESTES JUÁREZ presented to unit via W/C from HOME/ED, accompanied by SEATER ASSEMBLER & SO, with c/o CONTRACTIONS,VAG BLEEDING. ORESTES JUÁREZ weighed, gowned, voided, and to bed. EFHM and TOCO applied, VS taken. ORESTES JUÁREZ oriented to bed controls, call light, TV, heat, and A/C controls.
[2018-12-15 02:17] LABS: BILIRUBIN,URINE NEGATIVE (NEGATIVE); CLARITY,URINE SLIGHTLY CLOUDY; COLOR,URINE YELLOW; GLUCOSE, URINE (UA) NEGATIVE (NEGATIVE); KETONES,URINE NEGATIVE (NEGATIVE); LEUKOCYTE ESTERASE ,URINE 1+ (NEGATIVE); NITRITE,URINE NEGATIVE (NEGATIVE); PH,URINE 6 (5-9); PROTEIN,URINE 1+ (NEGATIVE)
[2018-12-15 02:22] VITALS: BP 135/94
[2018-12-15 02:48] VITALS: BP 114/61
[2018-12-15 02:48] LABS: BACTERIA,URINE FEW /HPF; WBC,URINE 0-2 /HPF
[2018-12-15] MEDS ORDERED: ACETAMINOPHEN 500 MG TAB (TYLENOL) PO ONE (03:30)
[2018-12-15] MEDS ORDERED: BETAMETHASONE ACE/NA PHOS 6 MG/ML (CELESTONE SOLUSPAN) ONE (03:31)
[2018-12-15] MEDS ORDERED: ACETAMINOPHEN 500 MG TAB (TYLENOL) ONE (03:32)
--- NOTE | 2018-12-15 03:46 | NUR ---
D/C instructions given & explained per Kev Bolaños RN, including pelvic rest & to call office for appt on for repeat Beta, pt. verbalized understanding & signed, copy of D/C instructions to pt. Pt. left [facility] ambulatory, to home via private vehicle.
[2018-12-15 04:01] LABS: AMPHETAMINE SCREEN, URINE NEGATIVE (NEGATIVE); BARBITURATE SCREEN URINE NEGATIVE (NEGATIVE); BENZODIAZEPINES SCREEN URINE NEGATIVE (NEGATIVE); CANNABINOID SCREEN, URINE NEGATIVE (NEGATIVE); COCAINE SCREEN URINE NEGATIVE (NEGATIVE); METHADONE STAT NEGATIVE (NEGATIVE); METHAMPHETAMINE SCREEN URINE S NEGATIVE (NEGATIVE); OPIATE SCREEN URINE NEGATIVE (NEGATIVE); OXYCODONE STAT NEGATIVE (NEGATIVE); PROPOXYPHENE STAT NEGATIVE (NEGATIVE); TRICYCLIC ANTIDEPRESSANTS SCRE NEGATIVE (NEGATIVE)
[2018-12-15] MEDS ORDERED: BETAMETHASONE ACE/NA PHOS 6 MG/ML (CELESTONE SOLUSPAN) IM ONE (09:00)
== END 2018-12-15 03:46 | disposition home or self-care (01) ==
LOC: WSo 01:48 → LDRP 01:51 → WSo 03:46
PROVIDERS: ATTEND Obstetrics & Gynecology
DX: O62.4 Hypertonic, incoordinate, and prolonged uterine contractions (principal); Z3A.34 34 weeks gestation of pregnancy
CPT/HCPCS: 80306; 81000; 96372; 99213

== ENCOUNTER → 2019-01-13 | Outpatient (CLI) | payer MEDICAID ==
[~2019-01-13] MED LIST changes: -ACET-77 PO; +ACET-78 PO; +ACET-93 PO; +DOCU100C37 PO; +GUAI5SYR PO
--- NOTE | 2019-01-13 16:49 | Diagnostic Imaging Report ---
INDICATION: Low-lying placenta versus marginal previa placenta. TECHNIQUE: Multiple real-time grayscale images were obtained over the gravid uterus. COMPARISON: 12/14/2018 FINDINGS: There is polyhydramnios with amniotic fluid index of 28 cm. Intrauterine gestation is identified with cardiac rate of 121 BPM. The placenta is posterior with approximately 7.5 cm between placental tip and cervix. No maternal adnexal region abnormality was documented. IMPRESSION: Posterior placenta without evidence of previa. There is polyhydramnios with amniotic fluid index of 28 cm. Dictated by: Dictated on workstation # [id number]
== END ==
LOC: RAD 15:06
PROVIDERS: ATTEND Nurse Practitioner Women's Health
DX: Z34.90 Encounter for supervision of normal pregnancy, unspecified, unspecified trimester (principal); Z3A.00 Weeks of gestation of pregnancy not specified
CPT/HCPCS: 76816

== ENCOUNTER 2019-01-27 05:55 | Inpatient (IN) | payer MEDICAID ==
[~2019-01-27] VITALS: Ht 167.7 cm; Wt 116.5 kg
[2019-01-27] VITALS (32 sets, daily range): BP systolic 95–139; BP diastolic 50–83
[~2019-01-27 05:55] MED LIST changes: +ACET-77 PO; -ACET-78 PO; -ACET-93 PO; -DOCU100C37 PO; -GUAI5SYR PO
--- NOTE | 2019-01-27 06:02 | NUR ---
ORESTES JUÁREZ presented to unit via ambulation from ED for induction of labor. ORESTES JUÁERZ weighed, gowned, voided, and to bed. EFHM and TOCO applied, VS taken. ORESTES JUÁREZ oriented to bed controls, call light, TV, heat, and A/C controls.
[2019-01-27] MEDS ORDERED: D5 LR IV SOLUTION 1,000 ML IV SCH (06:05)
[2019-01-27] MEDS ORDERED: MINERAL OIL CONCENTRATE 99.9% 15 ML UDC TOP PRN (06:15)
[2019-01-27] MEDS ORDERED: MISOPROSTOL 100 MCG (CYTOTEC) TAB PO ONE (06:45)
[2019-01-27] MEDS ORDERED: LACTATED RINGERS 1,000 ML IV SCH ×2 (07:00→09:37)
[2019-01-27 07:25] LABS: BASOPHILS % (AUTO) 0 % (0-10); EOSINOPHILS # (AUTO) 0.2 10^3/uL (0.0-0.3); EOSINOPHILS % (AUTO) 2 % (0-10); HEMATOCRIT 35 % (35-52); HEMOGLOBIN 11.5 G/DL (11.5-16.0); LYMPHOCYTES # (AUTO) 1.7 X 10^3 (1.0-4.0); LYMPHOCYTES % (AUTO) 18 % (12-44); MEAN CORPUSCULAR HEMOGLOBIN 28 PG (25-34); MEAN CORPUSCULAR HGB CONC 33 G/DL (32-36); MEAN CORPUSCULAR VOLUME 85 FL (80-99); MEAN PLATELET VOLUME 10.8 FL (7.4-10.4); MONOCYTES # (AUTO) 0.6 X 10^3 (0.0-1.0); MONOCYTES % (AUTO) 7 % (0-12); NEUTROPHILS # (AUTO) 6.7 X 10^3 (1.8-7.8); NEUTROPHILS % (AUTO) 73 % (42-75); PLATELET COUNT 281 10^3/uL (130-400); RED CELL DISTRIBUTION WIDTH 15.1 % (10.0-14.5); WHITE BLOOD COUNT 9.2 10^3/uL (4.3-11.0)
[2019-01-27] MEDS ORDERED: SUFENTA 0.6MCG/ML BUPIVA 0.125 100 ML ONE (08:10)
--- NOTE | 2019-01-27 09:00 | NUR ---
Caty Plascencia STOVE TENDER here for epidural placement. Procedure explained, consent reviewed and signed by anesthesia. Questions answered to patient's satisfaction. Time out taken to verify correct patient/procedure. Patient up to side of bed, assisted into sitting position. Betadine prep done x3 and sterile drape applied. Local done, see anesthesia record. Test dose given, see anesthesia record for drug and dosage. Epidural catheter secured in place. Epidural placement complete. Assisted back into bed, monitors adjusted. Epidural dosed, see anesthesia record. Epidural of Sufenta/Bupivicaine @ 12 cc/hr stated per pump. Patient tolerated procedure well.
[2019-01-27] MEDS ORDERED: BUPIVACAINE 0.25% 30 ML (SENSORCAINE) VIAL ONE (09:11)
[2019-01-27] MEDS ORDERED: LIDOCAINE PF 2% 5 ML (XYLOCAINE) VIAL ONE (09:11)
[2019-01-27] MEDS ORDERED: fentaNYL INJECTION 100 MCG/2 ML AMP ONE (09:11)
[2019-01-27] MEDS ORDERED: diphenhydrAMINE 50 MG/ML INJ (BENADRYL) IV PRN (09:45)
[2019-01-27] MEDS ORDERED: NALOXONE 0.4 MG/ML 1 ML (NARCAN) VIAL IV PRN (09:45)
[2019-01-27] MEDS ORDERED: EPIDURAL (SUFENTA 0.6MCG/ML BUPIVA 0.125%) 100 ML BAG EPI PRN (09:45)
[2019-01-27] MEDS ORDERED: ONDANSETRON 4 MG/2 ML (SDV) Z0FRAN IV PRN (09:45)
[2019-01-27] MEDS ORDERED: MISOPROSTOL 100 MCG (CYTOTEC) TAB PO SCH (10:45)
[2019-01-27] MEDS ORDERED: OXYTOCIN/NORMAL SALINE 500 ML IV ONE ×2 (12:04→12:41)
[2019-01-27] MEDS: OXYTOCIN/NORMAL SALINE 500 ML IV SCH ×2 (12:07→12:42)
[2019-01-27] MEDS ORDERED: WITCH HAZEL(TUCKS) 40 EA JAR TOP PRN (12:30)
[2019-01-27] MEDS ORDERED: MEASLES,MUMPS,RUBELLA 1 EA INJ SQ ONE (12:30)
[2019-01-27] MEDS ORDERED: TETANUS,DIPTH,PERTUSS P/F (BOOSTRIX) 0.5 ML VIAL IM ONE (12:30)
[2019-01-27] MEDS ORDERED: DIBUCAINE (NUPERCAINAL) 1% OINT 30 GM TOP PRN (12:30)
[2019-01-27] MEDS ORDERED: BENZOCAINE/MENTHOL (DERMOPLAST) 56 ML CAN TP PRN (12:30)
--- NOTE | 2019-01-27 12:31 | OB Labor & Delivery Record ---
Vag Delivery Note Vag Delivery Note Date of Delivery: 01/27/19 Preoperative Diagnosis: Sowmya Morales is a (39 /Para / ,Gestational Age (wks)40with [] Postoperative Diagnosis: Same Surgeon: ALESSIO ARTIS Field Service Tech: [] Anesthesia: [] Delivery Type: [] Findings: [] Viable [] , apgars [], weight [] Lacerations: Intact placenta with 3 vessel cord. No nuchal cord, body cord or shoulder dystocia Cytotec 800 mcg placed for hemorrhage prophylaxis Estimated Blood Loss: [] ml Complications: None Condition: Stable Description of Procedure: The patient is a 39 year old female who presented []. She was admitted and informed consent was obtained. Her labor course was remarkable for [] She pr ogressed to complete dilatation and began to push. She was then set up for delivery. The 's head was delivered atraumatically in the [] position. The shoulders and remainder of the infant's body were then delivered without difficulty. Upon delivery, the head was held below the level of the perineum and the mouth and nares were bulb suctioned. The cord was doubly clamped and cut and the was handed off to the pediatric staff. An intact placenta with 3-vessel cord delivered via Marcella and there was found to be minimal bleeding.~ Vigorous fundal massage was performed and the fundus was found to be firm. IV oxytocin was given. Examination of the vagina and perineum revealed a [] laceration repaired in the usual fashion with 3-0 vicryl suture. Following the repair, sponge, instrument and needle counts were correct. Mom and baby were both in stable condition in the labor suite. Vitals - Labs Vital Signs - I&O Vital Signs Date Time Temp Pulse Resp B/P (MAP) Pulse Ox O2 Delivery O2 Flow Rate FiO2 01/27/19 09:32 83 20 118/59 (78) 99 Room Air 01/27/19 09:30 36.4 78 20 125/70 (88) 98 Room Air 01/27/19 09:27 79 20 127/70 (89) 98 Room Air 01/27/19 09:25 80 20 133/73 (93) 98 Room Air 01/27/19 09:24 76 20 139/78 (98) 98 Room Air 01/27/19 09:23 84 20 134/72 (92) 98 Room Air 01/27/19 09:06 Room Air 01/27/19 09:00 36.4 78 20 130/83 (99) 100 Room Air 01/27/19 08:30 83 20 138/72 (94) 01/27/19 08:00 36.3 85 20 119/65 (83) 01/27/19 07:00 36.3 85 20 98 Room Air 01/27/19 06:40 36.5 93 18 137/78 (97) Labs Laboratory Tests 01/27/19 07:13: White Blood Count 9.2, Red Blood Count 4.12L, Hemoglobin 11.5, Hematocrit 35, Mean Corpuscular Volume 85, Mean Corpuscular Hemoglobin 28, Mean Corpuscular Hemoglobin Concent 33, Red Cell Distribution Width 15.1H, Platelet Count 281, Mean Platelet Volume 10.8H, Neutrophils (%) (Auto) 73, Lymphocytes (%) (Auto) 18, Monocytes (%) (Auto) 7, Eosinophils (%) (Auto) 2, Basophils (%) (Auto) 0, Neutrophils # (Auto) 6.7, Lymphocytes # (Auto) 1.7, Monocytes # (Auto) 0.6, Eosinophils # (Auto) 0.2, Basophils # (Auto) 0.0 ALESSIO ARTIS DO Jan 27, 2019 12:31
[2019-01-27] MEDS ORDERED: CATHETER FLUSH 10 ML SYR IV SCH (14:00)
[2019-01-27] MEDS: CATHETER FLUSH 10 ML SYR IV SCH (15:21)
--- NOTE | 2019-01-27 15:50 | NUR ---
Patient transferred to room 311 via wheelchair. Patient up to restroom to void, + void noted. Pericare reviewed and clean pad and panties applied. Patient ambulated back to bed without difficulty. Plan of care reviewed with patient. Patient verbalizes understanding and questions answered.
[2019-01-27] MEDS: IBUPROFEN 600 MG (MOTRIN) TAB PO SCH ×2 (15:55→22:27)
--- NOTE | 2019-01-27 18:40 | NUR ---
Dr. Langston notified of patient's request for something for her cough, new orders received.
[2019-01-27] MEDS ORDERED: guaiFENesin/DM (ROBITUSSIN DM) 10 ML UDC ONE (18:41)
[2019-01-27] MEDS: guaiFENesin/DM (ROBITUSSIN DM) 10 ML UDC PO PRN (18:55)
[2019-01-27] MEDS: DOCUSATE SODIUM 100 MG (COLACE) CAP PO SCH (20:30)
[2019-01-27] MEDS: ACETAMINOPHEN 500 MG TAB (TYLENOL) PO SCH (20:30)
--- NOTE | 2019-01-27 23:35 | NUR ---
Report received for Candido GREY on pt.
[2019-01-28] VITALS: BP 99/55
[2019-01-28] MEDS: IBUPROFEN 600 MG (MOTRIN) TAB PO SCH ×2 (03:55→09:59)
[2019-01-28 03:59] VITALS: BP 132/62
[2019-01-28] MEDS: CATHETER FLUSH 10 ML SYR IV SCH (06:05)
[2019-01-28] MEDS: ACETAMINOPHEN 500 MG TAB (TYLENOL) PO SCH (06:06)
[2019-01-28] MEDS ORDERED: FERR325T18 PO (06:07)
[2019-01-28] MEDS ORDERED: GUAI5SYR PO (06:07)
[2019-01-28] MEDS ORDERED: IBUP-844 PO (06:07)
[2019-01-28] MEDS ORDERED: ACET-93 PO (06:07)
[2019-01-28] MEDS ORDERED: DOCU100C37 PO (06:07)
--- NOTE | 2019-01-28 06:09 | Discharge Inst-Women's Service ---
Discharge Inst-Women's Serv Depart Medication/Instructions New, Converted or Re-Newed RX: Transmitted to Pharmacy Final Diagnosis induction polyhydramnios Problems Reviewed?: Yes Consults/Follow Up Additional Follow Up: Yes (6 weeks pp exam) Activity Activity: Activity as Tolerated Driving Instructions: You May Drive NO SMOKING: NO SMOKING Nothing Inside Vagina: No Douching, No [place], No Tampons Diet Discharge Diet: No Restrictions Symptoms to Report to : Bleeding Excessive, Pain Increased, Fever Over 101 Degrees F, Pain/Pressure in Jaw, Vaginal Bleeding Increase, Vaginal Discharge Foul For Any Problems or Questions: Contact Your Physician ALESSIO ARTIS DO Jan 28, 2019 06:08
[2019-01-28 06:33] LABS: BASOPHILS % (AUTO) 0 % (0-10); EOSINOPHILS # (AUTO) 0.2 10^3/uL (0.0-0.3); EOSINOPHILS % (AUTO) 3 % (0-10); HEMATOCRIT 36 % (35-52); HEMOGLOBIN 11.6 G/DL (11.5-16.0); LYMPHOCYTES # (AUTO) 1.7 X 10^3 (1.0-4.0); LYMPHOCYTES % (AUTO) 20 % (12-44); MEAN CORPUSCULAR HEMOGLOBIN 27 PG (25-34); MEAN CORPUSCULAR HGB CONC 32 G/DL (32-36); MEAN CORPUSCULAR VOLUME 86 FL (80-99); MEAN PLATELET VOLUME 10.8 FL (7.4-10.4); MONOCYTES # (AUTO) 0.5 X 10^3 (0.0-1.0); MONOCYTES % (AUTO) 6 % (0-12); NEUTROPHILS # (AUTO) 6.2 X 10^3 (1.8-7.8); NEUTROPHILS % (AUTO) 72 % (42-75); PLATELET COUNT 241 10^3/uL (130-400); RED CELL DISTRIBUTION WIDTH 14.9 % (10.0-14.5); WHITE BLOOD COUNT 8.6 10^3/uL (4.3-11.0)
[2019-01-28] MEDS ORDERED: PRENATAL VITAMIN 1 EA TAB PO SCH (07:00)
--- NOTE | 2019-01-28 07:01 | Anesthesia-Regional Post-Op ---
Regional Patient Condition Mental Status: Alert, Oriented x3 Circulation: Same as Pre-Op Headache: Absent Sensation: Full Recovery Motor Block: Absent Post Op Complications Complications None Follow Up Care/Instructions Patient Instructions None needed. Anesthesia/Patient Condition Patient is doing well, no complaints, stable vital signs, no apparent adverse anesthesia problems. No complications reported per nursing. RIKKI DELGADILLO CRNA Jan 28, 2019 07:01
[2019-01-28] MEDS ORDERED: FERROUS SULF 325 MG (IRON) TAB PO SCH (08:00)
[2019-01-28 09:57] VITALS: BP 135/75
--- NOTE | 2019-01-28 09:57 | NUR ---
AM shift assessment completed and vital signs obtained, see interventions. Plan of care reviewed with patient. Patient verbalizes understanding and questions answered. Scheduled Motrin, PNV, Iron, and Colace PO given. Robitussin DM PO given at this time. Shower supplies provided. Patient denies any current questions or concerns at this time.
[2019-01-28] MEDS: guaiFENesin/DM (ROBITUSSIN DM) 10 ML UDC PO PRN (09:59)
[2019-01-28] MEDS: DOCUSATE SODIUM 100 MG (COLACE) CAP PO SCH (09:59)
--- NOTE | 2019-01-28 14:14 | NUR ---
Discharge instructions and medications reviewed with patient both written and verbally. Patient verbalizes understanding and questions answered. Prescriptions called into [facility].
--- NOTE | 2019-01-28 14:15 | NUR ---
Patient discharged at this time to Boarder Status.
== END 2019-01-28 14:15 | disposition home or self-care (01) | DRG 807 ==
LOC: LDRP 05:55
PROVIDERS: ADMIT Obstetrics & Gynecology; ATTEND Obstetrics & Gynecology
PROC: 10E0XZZ Delivery of Products of Conception, External Approach (ICD-10-PCS; principal; 2019-01-27)
PROC: 0HQ9XZZ Repair Perineum Skin, External Approach (ICD-10-PCS; principal; 2019-01-27)
DX: O40.3XX0 Polyhydramnios, third trimester, not applicable or unspecified (principal); Z37.0 Single live birth; O70.9 Perineal laceration during delivery, unspecified; Z3A.37 37 weeks gestation of pregnancy; Z23 Encounter for immunization
CPT/HCPCS: 36415; 85025; 86850; 86900; 86901

== ENCOUNTER 2020-09-13 16:58 | Emergency (ER) | payer MEDICAID ==
[~2020-09-13] VITALS: Ht 154.3 cm; Wt 117.0 kg
[~2020-09-13 16:58] MED LIST changes: -ACET-77 PO; +ACET-78 PO; +ACET-93 PO; +DOCU100C37 PO; +GUAI5SYR PO
[2020-09-13] MEDS ORDERED: ACHD5005 PO (17:43)
[2020-09-13] MEDS ORDERED: CLIN300C12 PO (17:43)
--- NOTE | 2020-09-13 17:43 | ED EENT ---
History of Present Illness General Chief Complaint: Dental Problems/Pain Stated Complaint: TOOTH ACHE Nursing Triage Note: Pt ambulatory into ER with complaint of Left sided Dental Pain Today. Pt states that it started this morning. Hasn't seen dentist. Pain at a 9/10. Source: patient Exam Limitations: no limitations History of Present Illness Date Seen by Provider: Sep 13, 2020 Time Seen by Provider: 17:37 Initial Comments To ER with severe left upper dental pain onset this morning. Has not yet seen her dentist, she typically follows with [facility]. No fevers or chills. She broke the tooth last week but it only became tremendously painful today. She has tried topical Orajel Tylenol and ibuprofen without relief. Severity: moderate Location: dental Prearrival Treatment: over the counter meds Associated Symptoms: denies symptoms Allergies and Home Medications Allergies Coded Allergies: amoxicillin (Verified Allergy, Unknown, 08/20/05) cephalexin (Verified Allergy, Unknown, 08/20/05) latex (Verified Allergy, Unknown, 05/31/07) Home Medications Acetaminophen 500 Mg Tablet, 1,000 MG PO Q8HR Prescribed by: ALESSIO ARTIS on 01/28/19606 Clindamycin HCl 300 Mg Capsule, 300 MG PO TID Prescribed by: SUNDAR GEORGE on 09/13/201742 Docusate Sodium 100 Mg Capsule, 100 MG PO BID Prescribed by: ALESSIO ARTIS on 01/28/19606 Ferrous Sulfate 325 Mg Tablet, 325 MG PO DAILY@0800 Prescribed by: ALESSIO ARTIS on 01/28/19606 Guaifenesin/Dextromethorphan 5 Ml Syrup, 10 ML PO Q4H PRN for COUGH Prescribed by: ALESSIO ARTIS on 01/28/19606 Hydrocodone/Acetaminophen 1 Each Tablet, 1 TAB PO Q4H PRN for PAIN-MODERATE (5- 7) Prescribed by: SUNDAR GEORGE on 09/13/201742 Ibuprofen 600 Mg Tablet, 600 MG PO Q6H Prescribed by: ALESSIO ARTIS on 01/28/19606 Patient Home Medication List Home Medication List Reviewed: Yes Review of Systems Review of Systems Constitutional: see HPI Eyes: No Symptoms Reported Ears: No Symptoms Reported Nose: no symptoms reported Mouth: see HPI Throat: no symptoms reported Respiratory: no symptoms reported Cardiovascular: no symptoms reported Musculoskeletal: no symptoms reported Past Kvxhslx-Azrmgp-Qaylzv Hx Patient Social History Tobacco Use?: Yes Smoking Status: Current Someday Smoker Use of E-Cig and/or Vaping dev: No Substance use?: No Alcohol Use?: No Pt feels they are or have been: No Immunizations Up To Date Tetanus Booster (TDap): Unknown PED Vaccines UTD: Yes Seasonal Allergies Seasonal Allergies: No Past Medical History Surgeries: Yes (kidney surgery as an .) Respiratory: Yes (Asthma as a child) Asthma Cardiac: No Neurological: No Reproductive Disorders: No Female Reproductive Disorders: Denies Sexually Transmitted Disease: No HIV/AIDS: No Genitourinary: Yes (Kidney surgery as infant, 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 0oz. 106.052324jp; 49.00 BMI Method:Stated General Appearance: WD/WN, no apparent distress Eyes: bilateral eye normal inspection, bilateral eye PERRL, bilateral eye EOMI Ears: bilateral ear auricle normal, bilateral ear canal normal, bilateral ear TM normal Mouth/Throat: other (Several carious teeth, the affected tooth (#12) is fractured. ) Neck: non-tender, full range of motion Respiratory: normal breath sounds, no respiratory distress, no accessory muscle use Gastrointestinal: normal bowel sounds, non tender Neurologic/Psychiatric: alert, normal mood/affect, oriented x 3 Skin: normal color, warm/dry Progress/Results/Core Measures Results/Orders Vital Signs/I&O 09/13/20 17:10 Temp 36.6 Pulse 84 Resp 20 B/P (MAP) 162/102 (122) Pulse Ox 98 O2 Delivery Room Air Blood Pressure Mean: 122 Departure Impression Primary Impression: Fractured tooth Disposition: 01 HOME, SELF-CARE Condition: Stable Departure-Patient Inst. Decision time for Depature: 17:40 Referrals: SHIVA LANCE MD (PCP) Primary Care Physician ALESSIO ARTIS DO (Family) Primary Care Physician Patient Instructions: Fractured Tooth (DC) Add. Discharge Instructions: 1. Return to ER for any concerns. Meds as directed. Call [facility] in the morning for an appointment. All discharge instructions reviewed with patient and/or family. Voiced understanding. Scripts Clindamycin HCl (Clindamycin HCl) 300 Mg Capsule 300 MG PO TID, #21 CAP Prov: SUNDAR GEORGE APRN 09/13/20 Hydrocodone/Acetaminophen (Hydrocodone-Acetamin 5-325 mg) 1 Each Tablet 1 TAB PO Q4H PRN for PAIN-MODERATE (5-7), #14 TAB Prov: SUNDAR GEORGE APRN 09/13/20 Work/School Note: Work Release Form Date Seen in the Emergency Department: Sep 13, 2020 Return to Work: Sep 15, 2020 SUNDAR GEORGE APRN Sep 13, 2020 17:43
[2020-09-13] MEDS ORDERED: KETOROLAC 60 MG/2 ML VIAL IM ONE (18:00)
[2020-09-13 18:51] VITALS: BP 151/94
== END 2020-09-13 18:09 | disposition home or self-care (01) ==
LOC: EDUNIT# 16:58 → ER 17:00
DX: S02.5XXA Fracture of tooth (traumatic), initial encounter for closed fracture (principal); J45.909 Unspecified asthma, uncomplicated; F17.200 Nicotine dependence, unspecified, uncomplicated; X58.XXXA Exposure to other specified factors, initial encounter
CPT/HCPCS: 99284

== ENCOUNTER 2021-04-23 15:54 | Emergency (ER) | payer MEDICAID ==
[~2021-04-23 15:54] MED LIST changes: +CLIN-144 PO
[2021-04-23] MEDS ORDERED: CLIN150C20 PO (16:31)
[2021-04-23] MEDS ORDERED: TRM50T PO ×2 (16:31→18:31)
--- NOTE | 2021-04-23 16:31 | ED EENT ---
History of Present Illness General Chief Complaint: Dental Problems/Pain Stated Complaint: TOOTH PAIN Nursing Triage Note: C/O TOOTH PAIN. PT STATES STARTED ON LEFT UPPER SIDE OF MOUTH BUT NOW SEEMS TO BE ALL OVER. Source: patient Exam Limitations: no limitations (MERCEDES BORJA APRN) History of Present Illness Date Seen by Provider: Apr 23, 2021 Time Seen by Provider: 16:14 Initial Comments This is a 41 yo female who presented to the ER via POV with c/o left upper dental pain x1 week. States she has a broken/rotted tooth that fell out and has had increased pain x 1 week. States she has been calling [facility] for several days trying to get onto the emergent dental list. Denies fever, chills, nausea, vomiting. (MERCEDES BORJA APRN) Allergies and Home Medications Allergies Coded Allergies: amoxicillin (Verified Allergy, Unknown, 08/20/05) cephalexin (Verified Allergy, Unknown, 08/20/05) latex (Verified Allergy, Unknown, 05/31/07) Patient Home Medication List Home Medication List Reviewed: Yes (MERCEDES BORJA APRN) Acetaminophen (Acetaminophen) 500 Mg Tablet, 1,000 MG PO Q8HR Prescribed by: ALESSIO ARTIS on 01/28/19606 Clindamycin HCl (Clindamycin HCl) 300 Mg Capsule, 300 MG PO TID Prescribed by: SUNDAR GEORGE on 09/13/201742 Clindamycin HCl (Clindamycin HCl) 150 Mg Capsule, 150 MG PO Q6H Prescribed by: MERCEDES BORJA on 04/23/21 1631 Docusate Sodium (Docusate Sodium) 100 Mg Capsule, 100 MG PO BID Prescribed by: ALESSIO ARTIS on 01/28/19 06 Ferrous Sulfate (Ferrous Sulfate) 325 Mg Tablet, 325 MG PO DAILY@0800 Prescribed by: ALESSIO ARTIS on 01/28/19 06 Guaifenesin/Dextromethorphan (Guaifenesin Dm Syrup) 5 Ml Syrup, 10 ML PO Q4H PRN for COUGH Prescribed by: ALESSIO ARTIS on 01/28/19606 Hydrocodone/Acetaminophen (Hydrocodone-Acetamin 5-325 mg) 1 Each Tablet, 1 TAB PO Q4H PRN for PAIN-MODERATE (5-7) Prescribed by: SUNDAR GEORGE on 8/5/21 1743 Ibuprofen (Ibu) 600 Mg Tablet, 600 MG PO Q6H Prescribed by: ALESSIO ARTIS on 01/28/19 0607 Vits #93/Iron Fum/Fa ( Formula Tablet) 1 Each Tablet, 1 EACH PO, (Reported) Entered as Reported by: FREEDOM MARTINEZ on 02/05/132104 Tramadol HCl (Tramadol HCl) 50 Mg Tablet, 50 MG PO Q6H PRN for PAIN Prescribed by: PEDRO TARANGO on 04/23/21 1832 Review of Systems Review of Systems Constitutional: no symptoms reported Eyes: No Symptoms Reported Ears: No Symptoms Reported Nose: no symptoms reported Mouth: see HPI Throat: no symptoms reported Respiratory: no symptoms reported Gastrointestinal: no symptoms reported Skin: no symptoms reported (MERCEDES BORJA APRN) Past Dgtirfw-Nartmi-Ncvvqo Hx Patient Social History Tobacco Use?: Yes Tobacco type used: Cigarettes Smoking Status: Current Everyday Smoker Substance use?: No Alcohol Use?: No Pt feels they are or have been: No (MERCEDES BORJA APRN) Immunizations Up To Date Tetanus Booster (TDap): Unknown PED Vaccines UTD: Yes Influenza Vaccine Up-to-Date: Yes; Up-to-Date (MERCEDES BORJA APRN) Seasonal Allergies Seasonal Allergies: No (MERCEDES BORJA APRN) Past Medical History Surgeries: Yes (kidney surgery as an infant.) Respiratory: Yes (Asthma as a child) Asthma Cardiac: No Neurological: No Reproductive Disorders: No Female Reproductive Disorders: Denies Sexually Transmitted Disease: No HIV/AIDS: No Genitourinary: Yes (Kidney surgery as , decreased function in right kidney) Gastrointestinal: No Musculoskeletal: No Endocrine: No Hyperthyroidism HEENT: No Cancer: No Did You Recieve Any Treatments: Yes Psychosocial: No Integumentary: No Blood Disorders: No Adverse Reaction/Blood Tranf: No (MERCEDES BORJA APRN) Family Medical History Cancer (breast cancer- fathers side) Family history: Cardiovascular disease (paternal grandfather) Stroke (maternal grandfather) No Pertinent Family Hx (MERCEDES BORJA APRN) Physical Exam Vital Signs Vital Signs - First Documented 04/23/21 16:10 Temp 36.2 Pulse 105 Resp 20 B/P (MAP) 135/75 (95) O2 Delivery Room Air (PEDRO MOORE MD) Height, Weight, BMI Height: 5'6.00" Weight: 235lbs. 0oz. 106.636604zj; 49.00 BMI Method:Stated General Appearance: WD/WN, no apparent distress Eyes: bilateral eye normal inspection, bilateral eye PERRL Ears: bilateral ear auricle normal, bilateral ear canal normal Nose: normal inspection; No discharge Mouth/Throat: pharynx normal, dental tenderness (tooth #12, caries on multiple teeth); No excessive drooling, No mandibular swelling, No maxillary swelling Neck: non-tender, full range of motion, supple, normal inspection; No lymphadenopathy (R), No lymphadenopathy (L) Cardiovascular: regular rate, rhythm, no murmur Respiratory: lungs clear, normal breath sounds Neurologic/Psychiatric: no motor/sensory deficits, alert, normal mood/affect, oriented x 3 Skin: normal color, warm/dry (MERCEDES BORJA APRN) Progress/Results/Core Measures Results/Orders Medications Given in ED Current Medications Medications Dose Ordered Sig/Jayesh Route Start Time Stop Time Status Last Admin Dose Admin Ketorolac Tromethamine 60 mg ONCE ONCE IM 04/23/21 16:45 04/23/21 16:46 DC 04/23/21 16:39 60 MG Tramadol HCl 50 mg ONCE ONCE PO 04/23/21 16:45 04/23/21 16:46 DC 04/23/21 16:38 50 MG (PEDRO MOORE MD) Vital Signs/I&O 04/23/21 04/23/21 16:10 16:50 Temp 36.2 36.2 Pulse 105 105 Resp 20 20 B/P (MAP) 135/75 (95) 135/75 O2 Delivery Room Air Room Air (PEDRO MOORE MD) Blood Pressure Mean: 95 Progress Progress Note : Progress Note Noted this is the same tooth that was bothering her in September of 2020.Will Rx Clindamycin and Tramadol. Discharge POC reviewed and she is agreeable with plan. (MERCEDES BORJA APRN) Departure Impression Primary Impression: Dental caries Additional Impression: Pain due to dental caries Disposition: HOME, SELF-CARE Condition: Stable Departure-Patient Inst. Decision time for Depature: 16:31 (MERCEDES BORJA APRN) Referrals: SHIVA LANCE MD (PCP) Primary Care Physician ALESSIO ARTIS DO (Family) Primary Care Physician Patient Instructions: Tooth Decay ED Add. Discharge Instructions: Plan: 1. Continue to call [facility] for dental follow up. 2. Use lukewarm salt water rinses three times a day. 3. May take Ibuprofen 600mg every 6-8 hours as needed. 4. Use Tramadol as directed for severe breakthrough pain. Do not drive while taking. 5. Take antibiotics as directed and complete full course. All discharge instructions reviewed with patient and/or family. Voiced understanding. Scripts Tramadol HCl (Tramadol HCl) 50 Mg Tablet 50 MG PO Q6H PRN for PAIN, #15 TAB 0 Refills Prov: PEDRO MOORE MD 04/23/21 Clindamycin HCl (Clindamycin HCl) 150 Mg Capsule 150 MG PO Q6H for 7 Days, #21 CAP 0 Refills Prov: MERCEDES BORJA APRN 04/23/21 ATTENDING PHYSICIAN NOTE: I was physically present as attending physician in the emergency department during the care of this patient, but I was not directly involved in the decision making or delivery of care for this patient. I E-scribed the tramadol for Mercedes Borja NP due to technological complication her VIP Access. (PEDRO MOORE MD) MERCEDES BORJA APRN Apr 23, 2021 16:31 PEDRO MOORE MD Apr 23, 2021 18:34
[2021-04-23] MEDS ORDERED: KETOROLAC 60 MG/2 ML VIAL ONE (16:34)
[2021-04-23] MEDS ORDERED: KETOROLAC 60 MG/2 ML VIAL IM ONE (16:45)
[2021-04-23 16:50] VITALS: BP 135/75
== END 2021-04-23 16:50 | disposition home or self-care (01) ==
LOC: EDUNIT# 15:54 → ER 15:55
DX: K02.9 Dental caries, unspecified (principal); F17.210 Nicotine dependence, cigarettes, uncomplicated; Z91.040 Latex allergy status
CPT/HCPCS: 99284

== ENCOUNTER 2021-05-08 19:33 | Emergency (ER) | payer MEDICAID ==
[~2021-05-08] VITALS: Ht 168 cm; Wt 129.0 kg
[~2021-05-08 19:33] MED LIST changes: +CLIN150C20 PO; +TRM50T PO
[2021-05-08 20:46] VITALS: BP 114/71
--- NOTE | 2021-05-08 21:06 | ED EENT ---
History of Present Illness General Chief Complaint: Dental Problems/Pain Stated Complaint: MOUTH PAIN, DIZZINESS Nursing Triage Note: left upper dental pain x6 months. Source: patient Exam Limitations: no limitations History of Present Illness Date Seen by Provider: May 08, 2021 Time Seen by Provider: 21:04 Initial Comments Upper dental pain for several months. Cannot get into [facility] she reports. She was seen here earlier this month and given tramadol and clindamycin without improvement. Timing/Duration: other Severity: moderate Location: dental Prearrival Treatment: no prearrival treatment Associated Symptoms: denies symptoms Allergies and Home Medications Allergies Coded Allergies: amoxicillin (Verified Allergy, Unknown, 08/20/05) cephalexin (Verified Allergy, Unknown, 08/20/05) latex (Verified Allergy, Unknown, 05/31/07) Patient Home Medication List Home Medication List Reviewed: Yes Acetaminophen (Acetaminophen) 500 Mg Tablet, 1,000 MG PO Q8HR Prescribed by: ALESSIO ARTIS on 01/28/19 06 Clindamycin HCl (Clindamycin HCl) 300 Mg Capsule, 300 MG PO TID Prescribed by: SUNDAR GEORGE on 09/13/201742 Clindamycin HCl (Clindamycin HCl) 150 Mg Capsule, 150 MG PO Q6H Prescribed by: WILLY BORJA on 04/23/21 1631 Docusate Sodium (Docusate Sodium) 100 Mg Capsule, 100 MG PO BID Prescribed by: ALESSIO ARTIS on 01/28/19606 Ferrous Sulfate (Ferrous Sulfate) 325 Mg Tablet, 325 MG PO DAILY@0800 Prescribed by: ALESSIO ARTIS on 01/28/19 06 Guaifenesin/Dextromethorphan (Guaifenesin Dm Syrup) 5 Ml Syrup, 10 ML PO Q4H PRN for COUGH Prescribed by: ALESSIO ARTIS on 01/28/19 06 Hydrocodone/Acetaminophen (Hydrocodone-Acetamin 5-325 mg) 1 Each Tablet, 1 TAB PO Q4H PRN for PAIN-MODERATE (5-7) Prescribed by: SUNDAR GEORGE on 09/13/201742 Ibuprofen (Ibu) 600 Mg Tablet, 600 MG PO Q6H Prescribed by: ALESSIO ARTIS on 01/28/19 06 Vits #93/Iron Fum/Fa ( Formula Tablet) 1 Each Tablet, 1 EACH PO, (Reported) Entered as Reported by: FREEDOM MARTINEZ on 02/05/132104 Tramadol HCl (Tramadol HCl) 50 Mg Tablet, 50 MG PO Q6H PRN for PAIN Prescribed by: PEDRO TARANGO on 04/23/21 1832 Review of Systems Review of Systems Constitutional: see HPI Eyes: No Symptoms Reported Ears: No Symptoms Reported Nose: no symptoms reported Mouth: pain Throat: no symptoms reported Respiratory: no symptoms reported Cardiovascular: no symptoms reported Musculoskeletal: no symptoms reported Past Xmhrktz-Uwkbco-Aeymyy Hx Patient Social History Tobacco Use?: Yes Tobacco type used: Cigarettes Substance use?: No Alcohol Use?: No Pt feels they are or have been: No Immunizations Up To Date Tetanus Booster (TDap): Unknown PED Vaccines UTD: Yes Seasonal Allergies Seasonal Allergies: No Past Medical History Surgery/Hospitalization HX: renal sx, tubal, asthma, dental caries Surgeries: Yes (kidney surgery as an .) Respiratory: Yes (Asthma as a child) Asthma Cardiac: No Neurological: No Reproductive Disorders: No Female Reproductive Disorders: Denies Sexually Transmitted Disease: No HIV/AIDS: No Genitourinary: Yes (Kidney surgery as , decreased function in right kidney) Gastrointestinal: No Musculoskeletal: No Endocrine: No Hyperthyroidism HEENT: No Cancer: No Did You Recieve Any Treatments: Yes Psychosocial: No Integumentary: No Blood Disorders: No Adverse Reaction/Blood Tranf: No Family Medical History Cancer (breast cancer- fathers side) Family history: Cardiovascular disease (paternal grandfather) Stroke (maternal grandfather) No Pertinent Family Hx Physical Exam Vital Signs Vital Signs - First Documented 05/08/21 20:46 Temp 36.3 Pulse 82 Resp 16 B/P (MAP) 114/71 (85) Pulse Ox 98 O2 Delivery Room Air Height, Weight, BMI Height: 5'6.00" Weight: 235lbs. 0oz. 106.886226kh; 45.00 BMI Method:Stated General Appearance: WD/WN, no apparent distress Eyes: bilateral eye normal inspection, bilateral eye PERRL, bilateral eye EOMI Ears: bilateral ear auricle normal, bilateral ear canal normal, bilateral ear TM normal Mouth/Throat: normal mouth inspection, pharynx normal, other (Several carious and eroded teeth) Neck: non-tender, full range of motion Respiratory: no respiratory distress, no accessory muscle use Gastrointestinal: normal bowel sounds, non tender Neurologic/Psychiatric: normal mood/affect, oriented x 3 Skin: normal color, warm/dry Progress/Results/Core Measures Results/Orders Vital Signs/I&O 05/08/21 20:46 Temp 36.3 Pulse 82 Resp 16 B/P (MAP) 114/71 (85) Pulse Ox 98 O2 Delivery Room Air Blood Pressure Mean: 85 Departure Communication (Admissions) did a supraperiosteal injection of lidocaine 2% with epi totaling 1ml over tooth #12 Impression Primary Impression: Chronic dental pain Disposition: HOME, SELF-CARE Condition: Stable Departure-Patient Inst. Decision time for Depature: 21:06 Referrals: SHIVA LANCE MD (PCP/Family) Primary Care Physician Patient Instructions: Dental Pain Add. Discharge Instructions: ER is only a temporary fix and this will not get better without seeing a dentist. All discharge instructions reviewed with patient and/or family. Voiced understanding. Scripts Naproxen (Naprosyn) 500 Mg Tablet 500 MG PO BID PRN for PAIN-MODERATE (5-7), #30 TAB 0 Refills Prov: SUNDAR GEORGE APRN 05/08/21 Metronidazole (Metronidazole) 500 Mg Tablet 500 MG PO TID, #15 TAB 0 Refills Prov: SUNDAR GEORGE APRN 05/08/21 Levofloxacin (Levofloxacin) 500 Mg Tablet 500 MG PO DAILY, #5 TAB Prov: SUNDAR GEORGE APRN 05/08/21 SUNDAR GEORGE APRN May 08, 2021 21:06
[2021-05-08] MEDS ORDERED: METR-145 PO (21:09)
[2021-05-08] MEDS ORDERED: NAPR-1071 PO (21:09)
[2021-05-08] MEDS ORDERED: LEVO500T81 PO (21:09)
[2021-05-08] MEDS ORDERED: KETOROLAC 60 MG/2 ML VIAL IM ONE (21:15)
== END 2021-05-08 21:31 | disposition home or self-care (01) ==
LOC: EDUNIT# 19:33 → ER 19:34
DX: G89.29 Other chronic pain (principal); K08.89 Other specified disorders of teeth and supporting structures; Z72.0 Tobacco use; Z91.040 Latex allergy status
CPT/HCPCS: 99284

== ENCOUNTER 2021-06-20 17:26 | Emergency (ER) | payer MEDICAID ==
[~2021-06-20] VITALS: Ht 167.7 cm; Wt 128.3 kg
[~2021-06-20 17:26] MED LIST changes: +LEVO500T81 PO; +METR-145 PO; +NAPR-1071 PO
--- NOTE | 2021-06-20 18:13 | ED Cough/URI ---
General Chief Complaint: Cough/Cold/Flu Symptoms Stated Complaint: COUGH,CONGESTION Nursing Triage Note: PT AMBULATORY TO ROOM. PT STATES SHE HAS HAD COUGH, CONGESTION, BODY ACHES, VOMITING/DIARRHEA, CHILLS, AND MIGRAINES SINCE LAST NIGHT. PT STATES SHE HAS ONLY TAKEN TYLENOL AND HER LAST DOSE WAS 2 HOURS AGO Source: patient Exam Limitations: no limitations History of Present Illness Date Seen by Provider: June 20, 2021 Time Seen by Provider: 18:12 Initial Comments Patient is a 41-year-old female who presents ED flulike symptoms. Symptoms started 3 days ago with some pressure to the right side of head with radiation to the left temporal. Patient started develop bodyaches fatigue with mild cough. She reports some shortness of breath with a dry nonproductive cough. Vomited at least 6 times since yesterday afternoon. Similar diarrhea without any blood or mucus. No abdominal pain dysuria, hematuria or concern for . Has been taken Tylenol with a headache for some improvement. No history of migraines. Denies neck pain, abdominal pain, dysuria, hematuria, back pain. Not up-to-date her COVID or flu vaccines. Allergies and Home Medications Allergies Coded Allergies: amoxicillin (Verified Allergy, Unknown, 08/20/05) cephalexin (Verified Allergy, Unknown, 08/20/05) latex (Verified Allergy, Unknown, 05/31/07) Patient Home Medication List Home Medication List Reviewed: Yes Acetaminophen (Acetaminophen) 500 Mg Tablet, 1,000 MG PO Q8HR Prescribed by: ALESSIO ARTIS on 01/28/19 06 Albuterol Sulfate (Proair Hfa) 1 Puff Puff, 2 PUFF IH Q4H Prescribed by: BARB KUMARI on 06/20/212014 Clindamycin HCl (Clindamycin HCl) 300 Mg Capsule, 300 MG PO TID Prescribed by: SUNDAR GEORGE on 09/13/20 174 Clindamycin HCl (Clindamycin HCl) 150 Mg Capsule, 150 MG PO Q6H Prescribed by: WILLY BORJA on 04/23/21 1631 Docusate Sodium (Docusate Sodium) 100 Mg Capsule, 100 MG PO BID Prescribed by: ALESSIO ARTIS on 01/28/19 06 Ferrous Sulfate (Ferrous Sulfate) 325 Mg Tablet, 325 MG PO DAILY@0800 Prescribed by: ALESSIO ARTIS on 01/28/19606 Guaifenesin/Dextromethorphan (Guaifenesin Dm Syrup) 5 Ml Syrup, 10 ML PO Q4H PRN for COUGH Prescribed by: ALESSIO ARTIS on 01/28/19606 Hydrocodone/Acetaminophen (Hydrocodone-Acetamin 5-325 mg) 1 Each Tablet, 1 TAB PO Q4H PRN for PAIN-MODERATE (5-7) Prescribed by: SUNDAR GEORGE on 09/13/20 174 Ibuprofen (Ibu) 600 Mg Tablet, 600 MG PO Q6H Prescribed by: ALESSIO ARTIS on 01/28/19606 Levofloxacin (Levofloxacin) 500 Mg Tablet, 500 MG PO DAILY Prescribed by: SUNDAR GEORGE on 05/08/212108 Metronidazole (Metronidazole) 500 Mg Tablet, 500 MG PO TID Prescribed by: SUNDAR GEORGE on 05/08/212108 Naproxen (Naprosyn) 500 Mg Tablet, 500 MG PO BID PRN for PAIN-MODERATE (5-7) Prescribed by: SUNDAR GEORGE on 05/08/212108 Ondansetron (Ondansetron Odt) 4 Mg Tab.rapdis, 4 MG PO Q6H Prescribed by: BARB KUMARI on 06/20/212007 Prednisone (Prednisone) 50 Mg Tab, 50 MG PO DAILY Prescribed by: BARB KUMARI on 06/20/212014 Vits #93/Iron Fum/Fa ( Formula Tablet) 1 Each Tablet, 1 EACH PO, (Reported) Entered as Reported by: FREEDOM MARTINEZ on 02/05/132104 Tramadol HCl (Tramadol HCl) 50 Mg Tablet, 50 MG PO Q6H PRN for PAIN Prescribed by: PEDRO TARANGO on 04/23/21 183 Review of Systems Review of Systems Constitutional: chills, dizziness; No fever; malaise, weakness EENTM: throat pain; No dental problems, No mouth pain, No mouth swelling, No throat swelling Respiratory: cough, short of breath Cardiovascular: No chest pain Gastrointestinal: No abdominal pain; diarrhea, nausea, vomiting Genitourinary: No decreased output, No discharge Musculoskeletal: No back pain, No joint pain Skin: No change in color, No change in hair/nails All Other Systems Reviewed Negative Unless Noted: Yes Past Sclqmtw-Nzffop-Iomacr Hx Immunizations Up To Date Tetanus Booster (TDap): Unknown PED Vaccines UTD: Yes Seasonal Allergies Seasonal Allergies: No Past Medical History Surgery/Hospitalization HX: renal sx, tubal, asthma, dental caries Surgeries: Yes (kidney surgery as an .) Respiratory: Yes (Asthma as a child) Asthma Cardiac: No Neurological: No Reproductive Disorders: No Female Reproductive Disorders: Denies Sexually Transmitted Disease: No HIV/AIDS: No Genitourinary: Yes (Kidney surgery as infant, 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 0oz. 106.438410py; 45.00 BMI Method:Stated General Appearance: WD/WN, no apparent distress Eyes: Bilateral Eye Normal Inspection, Bilateral Eye PERRL, Bilateral Eye EOMI HEENT: PERRL/EOMI, normal ENT inspection, TMs normal, other (Oropharynx with erythema swelling without exudate.) Neck: non-tender, full range of motion, supple, normal inspection Respiratory: chest non-tender, lungs clear, normal breath sounds, no respiratory distress Cardiovascular: regular rate, rhythm, no edema, no gallop, no JVD Gastrointestinal: normal bowel sounds, non tender, soft, no organomegaly Extremities: normal range of motion, non-tender, normal inspection, no pedal edema Neurologic/Psychiatric: scalper operator II-XII nml as tested, no motor/sensory deficits, alert, normal mood/affect, oriented x 3 Skin: normal color, warm/dry Progress/Results/Core Measures Suspected Sepsis SIRS Temperature: Pulse: 98 Respiratory Rate: 24 Laboratory Tests 06/20/21 19:12: White Blood Count 7.9 Blood Pressure 150 /107 Mean: 121 Laboratory Tests 06/20/21 19:12: Creatinine 0.77, Platelet Count 305, Total Bilirubin 0.2 Results/Orders Lab Results Laboratory Tests Test 06/20/21 17:43 06/20/21 19:12 Range/Units Influenza Type A (RT-PCR) Not Detected Not Detecte Influenza Type B (RT-PCR) Not Detected Not Detecte SARS-CoV-2 RNA (RT-PCR) Not Detected Not Detecte White Blood Count 7.9 4.3-11.0 10^3/uL Red Blood Count 4.62 3.80-5.11 10^6/uL Hemoglobin 13.1 11.5-16.0 g/dL Hematocrit 41 35-52 % Mean Corpuscular Volume 89 80-99 fL Mean Corpuscular Hemoglobin 28 25-34 pg Mean Corpuscular Hemoglobin Concent 32 32-36 g/dL Red Cell Distribution Width 14.6 H 10.0-14.5 % Platelet Count 305 130-400 10^3/uL Mean Platelet Volume 11.1 9.0-12.2 fL Immature Granulocyte % (Auto) 0 % Neutrophils (%) (Auto) 59 42-75 % Lymphocytes (%) (Auto) 29 12-44 % Monocytes (%) (Auto) 7 0-12 % Eosinophils (%) (Auto) 4 0-10 % Basophils (%) (Auto) 1 0-10 % Neutrophils # (Auto) 4.7 1.8-7.8 10^3/uL Lymphocytes # (Auto) 2.3 1.0-4.0 10^3/uL Monocytes # (Auto) 0.5 0.0-1.0 10^3/uL Eosinophils # (Auto) 0.3 0.0-0.3 10^3/uL Basophils # (Auto) 0.1 0.0-0.1 10^3/uL Immature Granulocyte # (Auto) 0.0 0.0-0.1 10^3/uL Sodium Level 142 135-145 MMOL/L Potassium Level 3.7 3.6-5.0 MMOL/L Chloride Level 109 H 98-107 MMOL/L Carbon Dioxide Level 20 L 21-32 MMOL/L Anion Gap 13 5-14 MMOL/L Blood Urea Nitrogen 10 7-18 MG/DL Creatinine 0.77 0.60-1.30 MG/DL Estimat Glomerular Filtration Rate 101 BUN/Creatinine Ratio 13 Glucose Level 103 70-105 MG/DL Calcium Level 8.7 8.5-10.1 MG/DL Corrected Calcium 9.0 8.5-10.1 MG/DL Total Bilirubin 0.2 0.1-1.0 MG/DL Aspartate Amino Transf (AST/SGOT) 12 5-34 U/L Alanine Aminotransferase (ALT/SGPT) 10 0-55 U/L Alkaline Phosphatase 67 40-136 U/L C-Reactive Protein High Sensitivity 0.48 0.00-0.50 MG/DL Total Protein 6.5 6.4-8.2 GM/DL Albumin 3.6 3.2-4.5 GM/DL My Orders Orders - MIGUEL TERRAZAS Covid 19 Inhouse Test (06/20/21 17:39) Influenza A And B By Pcr (06/20/21 17:39) Chest 1 View, Ap/Pa Only (06/20/21 18:10) Ketorolac Injection (Toradol Injection) (06/20/21 18:15) Ondansetron Oral Dissolve Tab (Zofran (06/20/21 18:15) Diphenhydramine Tablet (Benadryl Tablet) (06/20/21 18:15) Cbc With Automated Diff (06/20/21 18:57) Comprehensive Metabolic Panel (06/20/21 18:57) Hs C Reactive Protein (06/20/21 18:57) Ns Iv 1000 Ml (Sodium Chloride 0.9%) (06/20/21 18:57) Prochlorperazine Injection (Compazine In (06/20/21 19:00) Dexamethasone Injection (Decadron Inje (06/20/21 19:00) Fentanyl Inj (Sublimaze Injection) (06/20/21 18:57) Medications Given in ED Current Medications Medications Dose Ordered Sig/Jayesh Route Start Time Stop Time Status Last Admin Dose Admin Dexamethasone Sodium Phosphate 10 mg ONCE ONCE IV 06/20/21 19:00 06/20/21 19:01 DC 06/20/21 19:23 10 MG Diphenhydramine HCl 25 mg ONCE ONCE PO 06/20/21 18:15 06/20/21 18:16 DC 06/20/21 18:30 25 MG Ketorolac Tromethamine 30 mg ONCE ONCE IM 06/20/21 18:15 06/20/21 18:16 DC 06/20/21 18:31 30 MG Ondansetron HCl 4 mg ONCE ONCE PO 06/20/21 18:15 06/20/21 18:16 DC 06/20/21 18:30 4 MG Prochlorperazine Edisylate 10 mg ONCE ONCE IV 06/20/21 19:00 06/20/21 19:01 DC 06/20/21 19:23 10 MG Vital Signs/I&O 06/20/21 06/20/21 17:39 20:22 Temp 37.1 Pulse 98 73 Resp 24 20 B/P (MAP) 150/107 (121) 114/93 Pulse Ox 98 97 Capillary Refill : Blood Pressure Mean: 121 Departure Communication (PCP) Patient presents ED with viral symptoms of headache dizziness cough body aches fatigue. No fever. States she has vomiting and diarrhea. Patient initially r efused any IV. Requesting p.o. medication for headache. She did not have significant improvement and was requesting IV. Was given IV migraine cocktail with improvement of her symptoms. No focal neural deficits. She states she went to the clinic yesterday had negative strep. COVID influenza negative. She is for cough shortness of breath. History of asthma but denies any wheezing. Chest x-ray was negative for pneumonia. Patient was given a liter of fluid. She states she is feeling much better at this time after IV fluids. This is likely viral in nature. She has no meningeal signs. No worsening head pain with movement. Denies worse headache of her life. No cardiac history. Recommend continue with conservative treatment at home. Provided work note. If any worsening symptoms return back to ED for further evaluation. Lab work was otherwise unremarkable. Patient was given a refill of her albuterol. She states last asthma exacerbation was about 9 months ago. Provided short burst steroids if this occurs at home. No notable wheezing noted here. Impression Primary Impression: URI (upper respiratory infection) Disposition: HOME, SELF-CARE Condition: Stable Departure-Patient Inst. Decision time for Depature: 20:07 Referrals: SHIVA LANCE MD (PCP/Family) Primary Care Physician Patient Instructions: Viral Syndrome (DC) Add. Discharge Instructions: All discharge instructions reviewed with patient and/or family. Voiced understanding. Scripts Prednisone (Prednisone) 50 Mg Tab 50 MG PO DAILY, #5 TAB Prov: MIGUEL TERRAZAS 06/20/21 Albuterol Sulfate (PROAIR HFA) 1 Puff Puff 2 PUFF IH Q4H, #1 EA 1 PUFF = 90 MCG Prov: MIGUEL TERRAZAS 06/20/21 Ondansetron (Ondansetron Odt) 4 Mg Tab.rapdis 4 MG PO Q6H, #8 TAB Prov: MIGUEL TERRAZAS 06/20/21 Work/School Note: Work Release Form Date Seen in the Emergency Department: June 20, 2021 Return to Work: June 24, 2021 MIGUEL TERRAZAS June 20, 2021 18:13
[2021-06-20] MEDS ORDERED: KETOROLAC 60 MG/2 ML VIAL IM ONE (18:15)
[2021-06-20] MEDS ORDERED: ONDANSETRON 4 MG (ZOFRAN) ORAL DISSOLVE TAB PO ONE (18:15)
[2021-06-20] MEDS ORDERED: diphenhydrAMINE 25 MG TAB (BENADRYL) PO ONE (18:15)
--- NOTE | 2021-06-20 18:42 | Diagnostic Imaging Report ---
EXAMINATION: Chest radiograph, portable AP view. DATE: 06/20/2021 6:35 PM INDICATION: 41-year-old female, chest pain. COMPARISON: August 24, 2018. FINDINGS: There is a calcified right midlung granuloma again noted. Heart size and mediastinal contours are unchanged. There is no identified pneumothorax. There is no large pleural effusion. There is no identified focal airspace consolidation. IMPRESSION: No identified acute cardiopulmonary abnormality. Dictated by: Dictated on workstation # [id number]
[2021-06-20] MEDS ORDERED: NS IV 1000 ML 1,000 ML IV STA (18:57)
[2021-06-20] MEDS ORDERED: fentaNYL INJ 100 MCG/2 ML AMP IVP STA (18:57)
[2021-06-20] MEDS ORDERED: PROCHLORPERAZINE 10 MG/2ML INJ (COMPAZINE) IV ONE (19:00)
[2021-06-20 19:19] LABS: BASOPHILS # (AUTO) 0.1 10^3/uL (0.0-0.1); BASOPHILS % (AUTO) 1 % (0-10); EOSINOPHILS # (AUTO) 0.3 10^3/uL (0.0-0.3); EOSINOPHILS % (AUTO) 4 % (0-10); HEMATOCRIT 41 % (35-52); HEMOGLOBIN 13.1 g/dL (11.5-16.0); LYMPHOCYTES # (AUTO) 2.3 10^3/uL (1.0-4.0); LYMPHOCYTES % (AUTO) 29 % (12-44); MEAN CORPUSCULAR HEMOGLOBIN 28 pg (25-34); MEAN CORPUSCULAR HGB CONC 32 g/dL (32-36); MEAN CORPUSCULAR VOLUME 89 fL (80-99); MEAN PLATELET VOLUME 11.1 fL (9.0-12.2); MONOCYTES # (AUTO) 0.5 10^3/uL (0.0-1.0); MONOCYTES % (AUTO) 7 % (0-12); NEUTROPHILS # (AUTO) 4.7 10^3/uL (1.8-7.8); NEUTROPHILS % (AUTO) 59 % (42-75); PLATELET COUNT 305 10^3/uL (130-400); WHITE BLOOD COUNT 7.9 10^3/uL (4.3-11.0)
[2021-06-20 19:43] LABS: ALBUMIN 3.6 GM/DL (3.2-4.5); BILIRUBIN,TOTAL 0.2 MG/DL (0.1-1.0); CALCIUM 8.7 MG/DL (8.5-10.1); CREATININE SERUM 0.77 MG/DL (0.60-1.30); POTASSIUM 3.7 MMOL/L (3.6-5.0); TOTAL PROTEIN 6.5 GM/DL (6.4-8.2)
[2021-06-20] MEDS ORDERED: ONDA4TAB11 PO (20:08)
[2021-06-20] MEDS ORDERED: PRD50T PO (20:15)
[2021-06-20] MEDS ORDERED: RT-ALBUINH IH (20:15)
[2021-06-20 20:22] VITALS: BP 114/93
== END 2021-06-20 20:23 | disposition home or self-care (01) ==
LOC: EDUNIT# 17:26 → ER 17:29
DX: J06.9 Acute upper respiratory infection, unspecified (principal); R19.7 Diarrhea, unspecified; R11.10 Vomiting, unspecified; Z20.822 Contact with and (suspected) exposure to COVID-19; Z91.040 Latex allergy status
CPT/HCPCS: 36415; 71045; 80053; 85025; 86141; 87636

== ENCOUNTER 2021-07-25 20:37 | Emergency (ER) | payer MEDICAID ==
[~2021-07-25] VITALS: Ht 167.7 cm; Wt 134.4 kg
[~2021-07-25 20:37] MED LIST changes: +ONDA4TAB11 PO; +PRD50T PO
[2021-07-25 20:41] VITALS: BP 134/90
[2021-07-25] MEDS ORDERED: CLINDAMYCIN 150 MG (CLEOCIN) CAP PO STA (20:52)
[2021-07-25] MEDS ORDERED: CLIN-144 PO (20:57)
--- NOTE | 2021-07-25 20:57 | ED EENT ---
History of Present Illness General Chief Complaint: Dental Problems/Pain Stated Complaint: TOOTH PAIN Nursing Triage Note: c/o right upper dental pain x3 days after being hit in face by football. Source: patient Exam Limitations: no limitations History of Present Illness Date Seen by Provider: Jul 25, 2021 Time Seen by Provider: 20:53 Initial Comments Patient is a 41-year-old female presents ED with right upper dental pain. Dental pain since 3 days ago. Described as sharp. No radiation. She started developing pain after her son kicked a football hitting her face but the pain started about 1 hour after the injury. She states it was not hit hard. She does have a history of dental infections to this location concern for possible dental infection. Denies of any facial redness but reports some swelling. Has been taken Tylenol, and naproxen, ibuprofen and oral gel without much improvement. She scheduled follow-up with dentist in 2 weeks. History of similar type pain with dental infections in the past. Denies sore throat, ear pain, headache, dizziness, nausea, vomit, diarrhea Allergies and Home Medications Allergies Coded Allergies: amoxicillin (Verified Allergy, Unknown, 08/20/05) cephalexin (Verified Allergy, Unknown, 08/20/05) latex (Verified Allergy, Unknown, 05/31/07) Patient Home Medication List Home Medication List Reviewed: Yes Clindamycin HCl (Clindamycin HCl) 300 Mg Capsule, 300 MG PO QID Prescribed by: BARB KUMARI on 07/25/212056 Discontinued Medications Acetaminophen (Acetaminophen) 500 Mg Tablet, 1,000 MG PO Q8HR Discontinued Reason: No Longer Taking Prescribed by: ALESSIO ARTIS on 01/28/19 0607 Last Action: Discontinued Albuterol Sulfate (Proair Hfa) 1 Puff Puff, 2 PUFF IH Q4H Discontinued Reason: No Longer Taking Prescribed by: BARB KUMARI on 06/20/212014 Last Action: Discontinued Clindamycin HCl (Clindamycin HCl) 300 Mg Capsule, 300 MG PO TID Discontinued Reason: No Longer Taking Prescribed by: SUNDAR GEORGE on 09/13/20 1743 Last Action: Discontinued Clindamycin HCl (Clindamycin HCl) 150 Mg Capsule, 150 MG PO Q6H Discontinued Reason: No Longer Taking Prescribed by: WILLY BORJA on 04/23/21 1631 Last Action: Discontinued Docusate Sodium (Docusate Sodium) 100 Mg Capsule, 100 MG PO BID Discontinued Reason: No Longer Taking Prescribed by: ALESSIO ARTIS on 01/28/19606 Last Action: Discontinued Ferrous Sulfate (Ferrous Sulfate) 325 Mg Tablet, 325 MG PO DAILY@0800 Discontinued Reason: No Longer Taking Prescribed by: ALESSIO ARTIS on 01/28/19606 Last Action: Discontinued Guaifenesin/Dextromethorphan (Guaifenesin Dm Syrup) 5 Ml Syrup, 10 ML PO Q4H PRN for COUGH Discontinued Reason: No Longer Taking Prescribed by: ALESSIO ARTIS on 01/28/19606 Last Action: Discontinued Hydrocodone/Acetaminophen (Hydrocodone-Acetamin 5-325 mg) 1 Each Tablet, 1 TAB PO Q4H PRN for PAIN-MODERATE (5-7) Discontinued Reason: No Longer Taking Prescribed by: SUNDAR GEORGE on 09/13/20 1743 Last Action: Discontinued Ibuprofen (Ibu) 600 Mg Tablet, 600 MG PO Q6H Discontinued Reason: No Longer Taking Prescribed by: ALESSIO ARTIS on 01/28/19606 Last Action: Discontinued Levofloxacin (Levofloxacin) 500 Mg Tablet, 500 MG PO DAILY Discontinued Reason: No Longer Taking Prescribed by: SUNDAR GEORGE on 05/08/212108 Last Action: Discontinued Metronidazole (Metronidazole) 500 Mg Tablet, 500 MG PO TID Discontinued Reason: No Longer Taking Prescribed by: SUNDAR GEORGE on 05/08/212108 Last Action: Discontinued Naproxen (Naprosyn) 500 Mg Tablet, 500 MG PO BID PRN for PAIN-MODERATE (5-7) Discontinued Reason: No Longer Taking Prescribed by: SUNDAR GEORGE on 05/08/212108 Last Action: Discontinued Ondansetron (Ondansetron Odt) 4 Mg Tab.rapdis, 4 MG PO Q6H Discontinued Reason: No Longer Taking Prescribed by: BARB KUMARI on 06/20/212007 Last Action: Discontinued Prednisone (Prednisone) 50 Mg Tab, 50 MG PO DAILY Discontinued Reason: No Longer Taking Prescribed by: BARB KUMARI on 06/20/212014 Last Action: Discontinued Vits #93/Iron Fum/Fa ( Formula Tablet) 1 Each Tablet, 1 EACH PO, (Reported) Discontinued Reason: No Longer Taking Entered as Reported by: FREEDOM MARTINEZ on 02/05/132104 Last Action: Discontinued Tramadol HCl (Tramadol HCl) 50 Mg Tablet, 50 MG PO Q6H PRN for PAIN Discontinued Reason: No Longer Taking Prescribed by: PEDRO TARANGO on 04/23/21 1832 Last Action: Discontinued Review of Systems Review of Systems Constitutional: No chills, No diaphoresis, No malaise, No weakness Eyes: Denies Drainage, Denies Decreased Acuity Ears: Denies Dizziness, Denies Tinnitus, Denies Clear Discharge, Denies Purulent Discharge Nose: denies congestion Mouth: loose teeth, pain; denies swelling Throat: denies swelling, denies discharge Respiratory: No cough, No dyspnea on exertion Cardiovascular: No chest pain Gastrointestinal: No abdominal pain, No diarrhea, No nausea, No vomiting Musculoskeletal: No back pain, No joint pain Skin: No change in color, No change in hair/nails All Other Systems Reviewed Negative Unless Noted: Yes Past Ahyzxwq-Ebxtfg-Ngoxlz Hx Patient Social History Tobacco Use?: Yes Substance use?: No Alcohol Use?: No Pt feels they are or have been: No Immunizations Up To Date Tetanus Booster (TDap): Unknown PED Vaccines UTD: Yes Seasonal Allergies Seasonal Allergies: No Past Medical History Surgery/Hospitalization HX: renal sx, tubal, asthma, dental caries Surgeries: Yes (kidney surgery as an infant.) Respiratory: Yes (Asthma as a child) Asthma Cardiac: No Neurological: No Last Menstrual Period: Jul 22, 2021 Reproductive Disorders: No Female Reproductive Disorders: Denies Sexually Transmitted Disease: No HIV/AIDS: No Genitourinary: Yes (Kidney surgery as infant, 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 0oz. [id number]; 47.00 BMI Method:Stated General Appearance: WD/WN, no apparent distress Eyes: bilateral eye normal inspection Ears: bilateral ear auricle normal, bilateral ear canal normal, bilateral ear TM normal Nose: normal inspection Mouth/Throat: other (Decay noted to the right upper central and lateral incisor, canine and first molar with gum swelling without fluctuant mass) Neck: non-tender, full range of motion Cardiovascular: regular rate, rhythm, no edema, no gallop Respiratory: chest non-tender, lungs clear, normal breath sounds, no re spiratory distress Gastrointestinal: normal bowel sounds, non tender, soft Neurologic/Psychiatric: route returner II-XII nml as tested, no motor/sensory deficits, alert, normal mood/affect, oriented x 3 Skin: normal color, warm/dry Progress/Results/Core Measures Results/Orders My Orders Orders - MIGUEL TERRAZAS Rx-Hydrocodone/Apap 5-325 Mg (Rx-Vicodin (07/25/21 21:00) Clindamycin Capsule (Cleocin Capsule) (07/25/21 20:52) Medications Given in ED Current Medications Medications Dose Ordered Sig/Jayesh Route Start Time Stop Time Status Last Admin Dose Admin Acetaminophen/ Hydrocodone Bitart 1 ea ONCE ONCE PO 07/25/21 21:00 07/25/21 21:01 DC 07/25/21 20:58 1 EA Vital Signs/I&O 07/25/21 20:41 Temp 36.4 Pulse 90 Resp 16 B/P (MAP) 134/90 (105) Pulse Ox 97 O2 Delivery Room Air Blood Pressure Mean: 105 Departure Communication (PCP) Patient right incisor canine and first molar with decay. Gum erythema. No obvious peridental abscess. Patient was given dose clindamycin here. Will discharge with clindamycin and few days worth of pain medication. She scheduled follow-up with dentist in 2 weeks. No significant facial redness. Mild swelling. She states injury from the football with low impact and denies immediate pain afterwards. History of similar location of dental infections in the past. Return precautions were discussed with patient such as increased pain , redness or swelling Impression Primary Impression: Toothache Disposition: HOME, SELF-CARE Condition: Stable Departure-Patient Inst. Decision time for Depature: 20:56 Referrals: GAULT,SHIVA R MD (PCP/Family) Primary Care Physician Patient Instructions: Dental Pain Scripts Clindamycin HCl (Clindamycin HCl) 300 Mg Capsule 300 MG PO QID for 7 Days, #28 CAP Prov: MIGUEL TERRAZAS 07/25/21 MIGUEL TERRAZAS Jul 25, 2021 20:57
== END 2021-07-25 21:01 | disposition home or self-care (01) ==
LOC: EDUNIT# 20:37 → ER 20:38
DX: K02.9 Dental caries, unspecified (principal)
CPT/HCPCS: 99283

== ENCOUNTER 2021-08-08 08:50 | Observation (INO) | payer MEDICAID ==
[~2021-08-08] VITALS: Ht 167.7 cm; Wt 116.1 kg
[2021-08-08] VITALS (8 sets, daily range): BP systolic 105–151; BP diastolic 72–103
[~2021-08-08 08:50] MED LIST changes: +LEVO-55 PO; -LEVO500T81 PO
[2021-08-08] MEDS ORDERED: ANTACID SUSP 30 ML UDC (MYLANTA) PO ONE (09:30)
[2021-08-08] MEDS ORDERED: LIDOCAINE 2% VISCOUS 15 ML UDC PO ONE (09:30)
[2021-08-08] MEDS ORDERED: ASPIRIN 81 MG CHEW (CHILDREN'S ASA) PO ONE (09:30)
[2021-08-08] MEDS ORDERED: ONDANSETRON 4 MG/2 ML (SDV) Z0FRAN IVP ONE (09:30)
[2021-08-08 09:32] LABS: BASOPHILS # (AUTO) 0.1 10^3/uL (0.0-0.1); BASOPHILS % (AUTO) 1 % (0-10); EOSINOPHILS # (AUTO) 0.4 10^3/uL (0.0-0.3); EOSINOPHILS % (AUTO) 5 % (0-10); HEMATOCRIT 44 % (35-52); LYMPHOCYTES # (AUTO) 1.5 10^3/uL (1.0-4.0); LYMPHOCYTES % (AUTO) 22 % (12-44); MEAN CORPUSCULAR HEMOGLOBIN 29 pg (25-34); MEAN CORPUSCULAR HGB CONC 32 g/dL (32-36); MEAN CORPUSCULAR VOLUME 89 fL (80-99); MEAN PLATELET VOLUME 10.5 fL (9.0-12.2); MONOCYTES # (AUTO) 0.5 10^3/uL (0.0-1.0); MONOCYTES % (AUTO) 8 % (0-12); NEUTROPHILS # (AUTO) 4.4 10^3/uL (1.8-7.8); NEUTROPHILS % (AUTO) 64 % (42-75); PLATELET COUNT 337 10^3/uL (130-400); WHITE BLOOD COUNT 6.9 10^3/uL (4.3-11.0)
[2021-08-08 09:45] LABS: POTASSIUM 4.2 MMOL/L (3.6-5.0)
[2021-08-08 09:48] LABS: INR 0.9 (0.8-1.4); PROTHROMBIN TIME PATIENT 12.1 SEC (12.2-14.7); TOTAL PROTEIN 7.1 GM/DL (6.4-8.2)
[2021-08-08 09:49] LABS: BILIRUBIN,TOTAL 0.2 MG/DL (0.1-1.0)
[2021-08-08 09:51] LABS: CREATININE SERUM 0.74 MG/DL (0.60-1.30)
--- NOTE | 2021-08-08 09:52 | Diagnostic Imaging Report ---
CLINICAL INDICATION: Chest pain. EXAM: Portable chest x-ray upright view. COMPARISON: Chest x-ray dated 06/20/2021. FINDINGS: Lungs/pleura stable calcified granuloma in the right midlung field. Lungs are clear. There is no pneumothorax. There is no pleural effusion. Mediastinum: Unremarkable. Pulmonary vasculature: Unremarkable. Heart: Heart size is within normal limits for portable projection. Bones/extrathoracic soft tissue: Unremarkable. IMPRESSION: 1: There is no radiographic evidence of acute cardiopulmonary process. 2: Stable calcified granuloma overlying the right lung region. Dictated by: Dictated on workstation # [id number]
[2021-08-08 09:54] LABS: MAGNESIUM 1.9 MG/DL (1.6-2.4)
[2021-08-08] MEDS ORDERED: LACTATED RINGERS 1,000 ML IV ONE (10:45)
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
[2021-08-08] MEDS: NITROGLYCERIN 0.4 MG SL TABS BTL 25'S SL PRN ×3 (10:56→11:39)
[2021-08-08] MEDS ORDERED: IOHEXOL 350 MG/ML 100 ML (OMNIPAQUE 350) VIAL IV ONE (12:45)
[2021-08-08] MEDS ORDERED: KETOROLAC 30 MG/ML VIAL IVP ONE (12:45)
[2021-08-08] MEDS ORDERED: NS 100 ML (IVPB) BAG IV ONE (12:45)
--- NOTE | 2021-08-08 13:06 | Diagnostic Imaging Report ---
PROCEDURE: CT angiography of the chest with contrast. TECHNIQUE: Multiple contiguous axial images were obtained through the chest after uneventful bolus administration of intravenous contrast. 3D reconstructed CTA MIP acquisitions were also performed. Auto Exposure Controls were utilized during the CT exam to meet ALARA standards for radiation dose reduction. INDICATION: Chest pain. FINDINGS: There is good opacification of the pulmonary arteries without intraluminal filling defect seen to indicate embolism. Thoracic aorta is of normal caliber. No pathologically enlarged adenopathy is identified. There is mild linear scarring in the lingula. 1.3 cm calcified granuloma is present within the right lower lobe, otherwise there is no evidence of pulmonary mass or significant infiltrate. No pleural or pericardial fluid is identified. IMPRESSION: No CTA evidence of pulmonary embolism or other acute abnormality within the thorax. Dictated by: Dictated on workstation # [id number]
[2021-08-08] MEDS ORDERED: polyethylene glycoL POWDER 17 GM (MIRALAX) PACK PO PRN (16:00)
[2021-08-08] MEDS ORDERED: MELATONIN 3 MG TABLET PO PRN (16:00)
[2021-08-08] MEDS ORDERED: diphenhydrAMINE 25 MG TAB (BENADRYL) PO PRN (16:00)
[2021-08-08] MEDS ORDERED: ALPRAZolam 0.25 MG (XANAX) TAB PO PRN (16:00)
[2021-08-08] MEDS ORDERED: ENOXAPARIN 40 MG/0.4 ML (LOVENOX) SYR SC SCH (16:00)
[2021-08-08] MEDS ORDERED: LACTULOSE SYRUP 10GM/15ML (ENULOSE) 30ML UDC PO PRN (16:00)
[2021-08-08] MEDS ORDERED: CALCIUM CARBONATE 500 MG (TUMS) TAB.CHEW PO PRN (16:00)
[2021-08-08] MEDS ORDERED: diphenhydrAMINE 50 MG/ML INJ (BENADRYL) IVP PRN (16:00)
[2021-08-08] MEDS ORDERED: PATIENT MAY USE OWN MEDS, ALL PO SCH (16:00)
[2021-08-08] MEDS ORDERED: ACETAMINOPHEN 325 MG TABLET PO PRN (16:00)
[2021-08-08] MEDS ORDERED: MILK OF MAGNESIA 400 MG/5 ML 30 ML UDC PO PRN (16:00)
[2021-08-08] MEDS ORDERED: NITROGLYCERIN 0.4 MG SL TABS BTL 25'S SL PRN (16:00)
[2021-08-08] MEDS ORDERED: ONDANSETRON 4 MG/2 ML (SDV) Z0FRAN IV PRN (16:00)
[2021-08-08] MEDS ORDERED: ONDANSETRON 4 MG (ZOFRAN) ORAL DISSOLVE TAB PO PRN (16:00)
[2021-08-08] MEDS ORDERED: BISACODYL 10 MG SUPP (DULCOLAX) PR PRN (16:00)
[2021-08-08] MEDS ORDERED: ANTACID SUSP 30 ML UDC (MYLANTA) PO PRN (16:00)
[2021-08-08] MEDS ORDERED: RT-ALBUTEROL SULF 2.5 MG/3 ML PRE-MIX VIAL INH PRN (16:45)
[2021-08-08] MEDS: morphine INJ 4 MG/ML 1 ML (VIAL/SYRINGE) IV PRN ×2 (16:57→22:04)
[2021-08-08] MEDS ORDERED: PANTOPRAZOLE 40 MG (PROTONIX) VIAL IV NR (18:30)
--- NOTE | 2021-08-08 18:30 | Consultation-Cardiology ---
HPI-Cardiology Cardiology Consultation: Date of Consultation 08/08/21 Date of Admission 08/08/21 Attending Physician Ayse Crowder MD Admitting Physician Admitting Physician: Rosmery Estrada DO Attending Physician: Rosmery Estrada DO Consulting Physician MARIA DEL CARMEN LO JR, MD HPI: Time Seen by a Provider: 18:23 Chief Complaint: REASON FOR CONSULTATION: Chest pain. I had the pleasure of seeing Sowmya on the cardiac stepdown unit at [facility] in [place], [place] today. She has no previously known history of coronary artery disease but does have cardiac risk factors of cigarette smoking but recently quit just a few days ago and a family history of premature coronary disease. She was in her usual state of good health until this morning at 0815 when she woke up from sleep with substernal chest pressure. This felt like a sq ueezing in the center of her chest. She denies associated complaints. This was severe. She denies radiation. Because of the constant chest pain, she came to the emergency room for further evaluation. While in the emergency room she had been given at GI cocktail which just made the chest discomfort worse and then it radiated towards the left breast. However, that left breast pain has now resolved but her chest discomfort remains. Sublingual nitroglycerin improved the chest discomfort but then it came back. Morphine seemed to bring the pain to a tolerable level but it has never completely resolved since she has been here in the hospital. At one point she felt slightly lightheaded but denies syncope. Over the past couple of weeks she had been noticing some bilateral lower extremity edema but this has gradually been resolving without any specific treatment. She denies any history of deep venous thrombosis or risk factors for deep venous thrombosis. She denies paroxysmal nocturnal dyspnea, orthopnea, or palpitations. She is fairly certain she has not had COVID. She has not been vaccinated. Certain portions of this document may have been dictated utilizing voice recognition technology. Inherent to this technology, typographical and grammatical errors may exist. As much as I am diligent to identify and correct these mistakes, some errors may remain in the document. Review of Systems-Cardiology Review of Systems Other comments Review of 10 organ systems is as per the history of present illness, otherwise negative. IVL-Pbskwu-Tlrgsi Hx Patient Social History Smoking Status: Former Smoker 2nd Hand Smoke Exposure: Yes Have you traveled recently?: No Alcohol Use?: No Pt feels they are or have been: No Tobacco type used: Cigarettes Immunizations Up To Date Tetanus Booster (TDap): Unknown Date of Influenza Vaccine: Nov 26, 2018 Past Medical History PMH As described under Assessment. Family Medical History Family Medical History: Her mother had a myocardial infarction in her 40s. Her mother from complications of COVID. Family History: Cancer (breast cancer- fathers side) Family history: Cardiovascular disease (paternal grandfather) Stroke (maternal grandfather) Allergies and Home Medications Allergies Coded Allergies: amoxicillin (Verified Allergy, Unknown, 08/20/05) cephalexin (Verified Allergy, Unknown, 08/20/05) latex (Verified Allergy, Unknown, 05/31/07) Patient Home Medication List Home Medication List Reviewed: Yes Clindamycin HCl (Clindamycin HCl) 300 Mg Capsule, 300 MG PO QID Prescribed by: BARB KUMARI on 07/25/212056 Exam Vital Signs Vital Signs Date Time Temp Pulse Resp B/P (MAP) Pulse Ox O2 Delivery O2 Flow Rate FiO2 08/08/21 18:00 66 16 122/72 (91) Room Air 08/08/21 17:15 99 08/08/21 16:43 36.0 Physical Exam General: Alert. No acute distress. Well nourished and appears stated age. She is morbidly obese. Eye: Extraocular movements are intact. Conjunctivae are clear. There are no xanthelasma. HENT: Normocephalic. Atraumatic. Carotid pulsations 2/2 without bruits. Neck: Jugular venous pressure does not appear elevated. No thyromegaly appreciated. Respiratory: Lungs are clear to auscultation. Respirations are non-labored. Breath sounds are equal. Symmetrical chest wall expansion. Cardiovascular: Normal rate. Regular rhythm. No murmur. No gallop. Point of maximal impulse is not appear displaced. Good pulses equal in all extremities. No edema. Gastrointestinal: Soft. Normal bowel sounds. Skin: Skin turgor is normal. There is no pallor. Musculoskeletal: No kyphosis or scoliosis appreciated. Neurologic: Alert and oriented to person, place, time. Cranial nerves 3-12 appear grossly intact. The patient has good motor tone strength in the upper and lower extremities bilaterally. Psychiatric: Cooperative. Appropriate mood & affect. Labs Laboratory Tests Test 08/08/21 09:26 08/08/21 09:36 08/08/21 12:59 08/08/21 13:38 Range/Units White Blood Count 6.9 4.3-11.0 10^3/uL Red Blood Count 4.92 3.80-5.11 10^6/uL Hemoglobin 14.0 11.5-16.0 g/dL Hematocrit 44 35-52 % Mean Corpuscular Volume 89 80-99 fL Mean Corpuscular Hemoglobin 29 25-34 pg Mean Corpuscular Hemoglobin Concent 32 32-36 g/dL Red Cell Distribution Width 14.7 H 10.0-14.5 % Platelet Count 337 130-400 10^3/uL Mean Platelet Volume 10.5 9.0-12.2 fL Immature Granulocyte % (Auto) 0 % Neutrophils (%) (Auto) 64 42-75 % Lymphocytes (%) (Auto) 22 12-44 % Monocytes (%) (Auto) 8 0-12 % Eosinophils (%) (Auto) 5 0-10 % Basophils (%) (Auto) 1 0-10 % Neutrophils # (Auto) 4.4 1.8-7.8 10^3/uL Lymphocytes # (Auto) 1.5 1.0-4.0 10^3/uL Monocytes # (Auto) 0.5 0.0-1.0 10^3/uL Eosinophils # (Auto) 0.4 H 0.0-0.3 10^3/uL Basophils # (Auto) 0.1 0.0-0.1 10^3/uL Immature Granulocyte # (Auto) 0.0 0.0-0.1 10^3/uL Prothrombin Time 12.1 L 12.2-14.7 SEC INR Comment 0.9 0.8-1.4 Activated Partial Thromboplast Time 21 L 24-35 SEC Sodium Level 141 135-145 MMOL/L Potassium Level 4.2 3.6-5.0 MMOL/L Chloride Level 109 H 98-107 MMOL/L Carbon Dioxide Level 21 21-32 MMOL/L Anion Gap 11 5-14 MMOL/L Blood Urea Nitrogen 12 7-18 MG/DL Creatinine 0.74 0.60-1.30 MG/DL Estimat Glomerular Filtration Rate 105 BUN/Creatinine Ratio 16 Glucose Level 93 70-105 MG/DL Calcium Level 9.0 8.5-10.1 MG/DL Corrected Calcium 9.0 8.5-10.1 MG/DL Magnesium Level 1.9 1.6-2.4 MG/DL Total Bilirubin 0.2 0.1-1.0 MG/DL Aspartate Amino Transf (AST/SGOT) 15 5-34 U/L Alanine Aminotransferase (ALT/SGPT) 17 0-55 U/L Alkaline Phosphatase 71 40-136 U/L Myoglobin 35.0 10.0-92.0 NG/ML Troponin I < 0.028 < 0.028 <0.028 NG/ML Total Protein 7.1 6.4-8.2 GM/DL Albumin 4.0 3.2-4.5 GM/DL D-Dimer 0.54 H 0.00-0.49 UG/ML Glucometer 73 70-110 MG/DL ECG Impression ECG Comment Several electrocardiograms have been performed that shows sinus rhythm with low voltage but no evidence of a prior infarct or ischemia at rest. Diagnosis/Problems Diagnosis/Problems (1) Chest pain Assessment & Plan: Exact etiology unclear. She has had 2 undetectable troponin levels. Her chest CT did not show any evidence of pulmonary embolism or any other abnormality to explain chest pain. Her electrocardiograms are unremarkable. She does have some reproducibility to the chest pain with palpation of her sternal area. I suspect this could be musculoskeletal chest pain although despite receiving intravenous ketorolac as well as narcotic medications, the chest pain has not resolved. I agree with admission to observation unit. I have ordered an echocardiogram and nuclear stress test for tomorrow. I will also obtain a sed rate and CRP in the event any of this could be due to pericarditis. I will also give her dose of intravenous pantoprazole and start her on oral pantoprazole. (2) Cigarette smoker within last 12 months Assessment & Plan: She just quit smoking 3 days ago. I encouraged her to continue her best efforts at long-term smoking cessation. (3) Morbid obesity Assessment & Plan: She needs to work on weight loss. Unclear whether or not her obesity could be contributing to her chest pain. Problem Qualifiers (1) Chest pain: Chest pain type: unspecified Qualified Codes: R07.9 - Chest pain, unspecified MARIA DEL CARMEN LO JR, MD Aug 08, 2021 18:29
[2021-08-08] MEDS: DOCUSATE SODIUM 100 MG (COLACE) CAP PO SCH (20:59)
[2021-08-08] MEDS: SENNOSIDES 8.6 MG (SENOKOT) TAB PO SCH (21:00)
[2021-08-09] VITALS: BP 109/67
[2021-08-09 04:00] VITALS: BP 104/59
[2021-08-09 05:15] LABS: BASOPHILS % (AUTO) 1 % (0-10); EOSINOPHILS # (AUTO) 0.3 10^3/uL (0.0-0.3); EOSINOPHILS % (AUTO) 5 % (0-10); HEMATOCRIT 37 % (35-52); HEMOGLOBIN 11.7 g/dL (11.5-16.0); LYMPHOCYTES % (AUTO) 30 % (12-44); MEAN CORPUSCULAR HEMOGLOBIN 28 pg (25-34); MEAN CORPUSCULAR HGB CONC 32 g/dL (32-36); MEAN CORPUSCULAR VOLUME 90 fL (80-99); MEAN PLATELET VOLUME 10.6 fL (9.0-12.2); MONOCYTES # (AUTO) 0.4 10^3/uL (0.0-1.0); MONOCYTES % (AUTO) 6 % (0-12); NEUTROPHILS # (AUTO) 3.7 10^3/uL (1.8-7.8); NEUTROPHILS % (AUTO) 58 % (42-75); PLATELET COUNT 261 10^3/uL (130-400); WHITE BLOOD COUNT 6.4 10^3/uL (4.3-11.0)
[2021-08-09 05:24] LABS: ALBUMIN 3.2 GM/DL (3.2-4.5); CHLORIDE 108 MMOL/L (98-107); POTASSIUM 4.3 MMOL/L (3.6-5.0); SODIUM 139 MMOL/L (135-145)
[2021-08-09 05:25] LABS: CALCIUM 8.5 MG/DL (8.5-10.1)
[2021-08-09 05:26] LABS: GLUCOSE 94 MG/DL (70-105); TOTAL PROTEIN 5.8 GM/DL (6.4-8.2); TRIGLYCERIDES 133 MG/DL (<150); VLDL CHOLESTEROL 27 MG/DL (5-40)
[2021-08-09 05:27] LABS: CARBON DIOXIDE 22 MMOL/L (21-32)
[2021-08-09 05:28] LABS: BILIRUBIN,TOTAL 0.2 MG/DL (0.1-1.0)
[2021-08-09 05:30] LABS: ALKALINE PHOSPHATASE 62 U/L (40-136); GFR ESTIMATED 113
[2021-08-09 05:31] LABS: BUN/CREATININE RATIO 20; CHOLESTEROL 183 MG/DL (< 200)
[2021-08-09 05:32] LABS: HDL CHOLESTEROL 32 MG/DL (40-60)
[2021-08-09 05:33] LABS: ALANINE AMINOTRANSFERASE 13 U/L (0-55)
--- NOTE | 2021-08-09 06:01 | Short Stay Summary-Hospitalist ---
History of Present Illness HPI/Chief Complaint CC: Chest Pain HPI: This is a 41 yr old female with a history of smoking. She just quit smoking 3 days ago. Family history of CAD. She presented with chest pain. Troponins were all negative but she continued to have chest pain. Nitroglycerin was given. She did have a stress test and cardiology evaluated risk stratification Source: patient Exam Limitations: no limitations Date Seen 08/09/21 Time Seen by a Provider: 10:30 Attending Physician Ayse Crowder MD PCP Admitting Physician: Rosmery Estrada DO Attending Physician: Rosmery Estrada DO Referring Physician Date of Admission Aug 08, 2021 at 15:58 Home Medications & Allergies Home Medications Reviewed patient Home Medication Reconciliation performed by pharmacy medication reconciliations speech therapist technician and/or nursing. Patients Allergies have been reviewed. Allergies Allergies Coded Allergies amoxicillin (Verified Allergy, Unknown, 08/20/05) cephalexin (Verified Allergy, Unknown, 08/20/05) latex (Verified Allergy, Unknown, 05/31/07) Past Zjdwtfk-Mrleji-Uuuxhf Hx Patient Social History Marrital Status: single Employed/Student: unemployed Tobacco Use?: Yes Tobacco type used: Cigarettes Smoking Status: Former Smoker Smokeless Tobacco Frequency: Never a User Use of E-Cig and/or Vaping dev: No Use of E-Cig and/or Vaping Ashwin: Never a User Substance use?: No Alcohol Use?: No Pt feels they are or have been: No Immunizations Up To Date Date of Influenza Vaccine: Nov 26, 2018 Tetanus Booster (TDap): Less Than 5 Years Hepatitis A: No Hepatitis B: Yes PED Vaccines UTD: Yes Seasonal Allergies Seasonal Allergies: No Current Status status: No status: No Advance Directives: No Communicates: Verbally Primary Language: [place] Islander Preferred Spoken Language: [place] Islander Is interpretation needed?: No Sensory deficits: Vision impairment Implanted or Applied Medical D: None Past Medical History Surgeries: Renal Asthma Sexually Transmitted Disease: No HIV/AIDS: No Hyperthyroidism Did You Recieve Any Treatments: Yes Blood Disorders: No Adverse Reaction/Blood Tranf: No hx of CIN3 Family Medical History Reviewed and Corrections made Cancer (breast cancer- fathers side) Family history: Cardiovascular disease (paternal grandfather) Stroke (maternal grandfather) CAD Under 55 Years Old Review of Systems Constitutional: see HPI Cardiovascular: chest pain Physical Exam Physical Exam Vital Signs Vital Signs - First Documented 08/08/21 08/08/21 08/09/21 09:00 16:25 08:17 Temp 36.1 Pulse 84 Resp 17 B/P (MAP) 134/96 (109) Pulse Ox 98 O2 Delivery Room Air O2 Flow Rate 0.00 Capillary Refill : Less Than 3 Seconds Height, Weight, BMI Height: 5'6.00" Weight: 235lbs. 0oz. [id number]; 41.28 BMI Method:Stated General Appearance: No Apparent Distress, WD/WN, Chronically ill, Obese HEENT: PERRL/EOMI, Normal ENT Inspection Neck: Normal Inspection; No JVD Respiratory: Lungs Clear, Normal Breath Sounds, No Accessory Muscle Use, No Respiratory Distress, Other (Anterior chest tender to pressure over the sternum) Cardiovascular: Regular Rate, Rhythm, No Edema, No Murmur, Normal Peripheral Pulses Gastrointestinal: Normal Bowel Sounds, Non Tender, Soft; No Distended Extremity: Normal Inspection, Non Tender, No Calf Tenderness Neurologic/Psychiatric: Alert, Oriented x3, No Motor/Sensory Deficits, Normal Mood/Affect, rehabilitation tech II-XII Norm as Tested Skin: Normal Color, Warm/Dry Results Results/Procedures Labs Laboratory Tests 08/08/21 09:26 08/09/21 05:05 Patient resulted labs reviewed. Short Stay Diagnosis Discharge Diagnosis-Short Stay Admission Diagnosis Chest pain Final Discharge Diagnosis Chest pain FH + CAD Smoker Conclusion Plan DC home Diagnosis/Problems Diagnosis/Problems (1) Chest pain Qualifiers: Qualified Codes: R07.9 - Chest pain, unspecified (2) Obesity Status: Acute Qualifiers: Qualified Codes: E66.01 - Morbid (severe) obesity due to excess calories; Z68.41 - Body mass index [BMI] 40.0-44.9, adult Clinical Quality Measures AMI/AHF: ASA po Prior to arrival: ROSMERY Quinn DO Aug 09, 2021 06:01
[2021-08-09 07:40] VITALS: BP 99/69
[2021-08-09] MEDS: DOCUSATE SODIUM 100 MG (COLACE) CAP PO SCH (07:43)
[2021-08-09] MEDS: SENNOSIDES 8.6 MG (SENOKOT) TAB PO SCH (07:43)
[2021-08-09] MEDS: morphine INJ 4 MG/ML 1 ML (VIAL/SYRINGE) IV PRN ×2 (07:47→11:47)
[2021-08-09] MEDS ORDERED: CATHETER FLUSH 10 ML SYR IVP PRN (08:30)
[2021-08-09] MEDS ORDERED: PANTOPRAZOLE 40 MG (PROTONIX) TAB PO SCH (09:00)
[2021-08-09] MEDS ORDERED: ASPIRIN E.C. 81 MG (ECOTRIN) TAB PO SCH (09:00)
[2021-08-09 09:48] VITALS: BP 126/99
[2021-08-09] MEDS ORDERED: ENOXAPARIN 40 MG/0.4 ML (LOVENOX) SYR SC SCH (10:00)
[2021-08-09 11:42] VITALS: BP 118/86
[2021-08-09] MEDS ORDERED: ACET-11 PO (12:09)
[2021-08-09] MEDS ORDERED: LIDOCAINE 4% (SALONPAS) PATCH TOP SCH (12:45)
--- NOTE | 2021-08-09 12:54 | NUCLEAR STRESS TEST ---
TREADMILL NUCLEAR STRESS TEST Date of procedure: 08/09/2021. Primary care provider: Ayse Crowder MD. Admitting physician: Rosmery Estrada DO. INDICATION: Chest pain and abnormal electrocardiogram. BASELINE ELECTROCARDIOGRAM: Sinus rhythm with low voltage in the precordial leads. STRESS TEST PROCEDURE: The patient was exercised for a total of 5 minutes and 15 seconds of the standard Codey protocol achieving a maximum MET level of 6. The resting heart rate was 64 bpm and the peak heart rate was 157 bpm, which represents 86% of the maximum predicted heart rate. The resting blood pressure was 134/102 mmHg and the peak blood pressure was 156/110 mmHg. This represents a normal heart rate and a normal blood pressure response to exercise. The test was stopped due to chest pain. There was chest discomfort at rest that got worse during the test and went back to baseline during rest. There were no arrhythmias during the test. There were no significant stress induced electrocardiogram changes. The patient exhibited poor exercise capacity for age. NUCLEAR PROCEDURE: The patient was administered 10.1 mCi of intravenous technetium 99m Tetrofosmin at rest for the rest images. The patient was subsequently administered 30.1 mCi of intravenous technetium 99 M Tetrofosmin at peak stress for the stress images. Following an appropriate wait after each injection, imaging was obtained. The images were subsequently processed and reformatted in the usual views. Gated imaging was obtained. The image quality was adequate with a mild degree of gastrointestinal attenuation artifact. CT attenuation correction was used as a adjunct to standard imaging. Both the corrected and uncorrected images were reviewed for interpretation. NUCLEAR RESULTS: There was normal myocardial perfusion in all segments without evidence of infarction or ischemia. There was normal left ventricular chamber size with an end-diastolic volume of 35 mL and an end-systolic volume of 10 mL. There was no evidence of transient ischemic dilatation. The TID ratio was 1.13. There was normal wall motion in all segments with a calculated ejection fraction of 72%. IMPRESSION: 1. Normal heart rate and blood pressure response to exercise. 2. The patient had chest discomfort at rest that got worse during exercise and improved during rest but did not resolve. 3. There were no arrhythmias or electrocardiogram changes during the test. 4. The patient exhibited poor exercise capacity for age at 5 minutes and 15 seconds of the Codey protocol although at 4 minutes, the treadmill was slowed down and incline was set to 0. 5. There was normal myocardial perfusion in all segments without evidence of infarction or ischemia. 6. There was normal wall motion in all segments with a calculated ejection fr action of 72%. Certain portions of this document may have been dictated utilizing voice recognition technology. Inherent to this technology, typographical and grammatical errors may exist. As much as I am diligent to identify and correct these mistakes, some errors may remain in the document. MARIA DEL CARMEN LO JR, MD Aug 09, 2021 12:54
[2021-08-09 15:23] VITALS: BP 117/67
--- NOTE | 2021-08-09 16:04 | Cardiology Progress Note ---
Progress Note-Cardiology Events since last exam Date Seen by Provider: Aug 09, 2021 Time Seen by Provider: 16:55 Events since last exam I am following her due to chest pain. When she had her stress test earlier t pham, she had chest discomfort at rest and this became severe during the treadmill portion of the test and we had to stop the test due to chest pain. Later in the morning, I asked the nurse to place a Lidoderm patch over the patient's midsternal area where she was having her chest discomfort. This made her chest discomfort minimally better. Today the chest discomfort was both a tightness and a sharp pain if she took a deep breath. Otherwise, she denies dyspnea. She denies palpitations, syncope, or ankle edema. Certain portions of this document may have been dictated utilizing voice recog nition technology. Inherent to this technology, typographical and grammatical errors may exist. As much as I am diligent to identify and correct these mistakes, some errors may remain in the document. Vitals Last set of Vitals Signs Vital Signs 08/09/21 08/09/21 08/09/21 08:17 15:23 15:31 Temp 36.6 Pulse 51 Resp 18 B/P (MAP) 117/67 (84) Pulse Ox 96 O2 Delivery Room Air O2 Flow Rate 0.00 Labs Labs Laboratory Tests 08/09/21 05:05 Exam Vital Signs Vital Signs Date Time Temp Pulse Resp B/P (MAP) Pulse Ox O2 Delivery O2 Flow Rate FiO2 08/09/21 15:31 Room Air 08/09/21 15:23 36.6 51 18 117/67 (84) 96 08/09/21 08:17 0.00 Physical Exam General: Alert. No acute distress. She is obese. Eye: No xanthelasma. HENT: Normocephalic. Neck: Jugular venous pressure does not appear elevated. Respiratory: Lungs are clear to auscultation. Respirations are non-labored. Breath sounds are equal. Symmetrical chest wall expansion. Cardiovascular: Normal rate. Regular rhythm. Distant S1/S2. No murmur. No gallop. No edema. Gastrointestinal: Soft. Normal bowel sounds. Skin: Warm. Dry. Neurologic: Alert and oriented to person, place, time. Cranial nerves 3-11 grossly intact. Psychiatric: Cooperative. Appropriate mood & affect. Labs Laboratory Tests Test 08/08/21 21:26 08/09/21 05:05 Range/Units Erythrocyte Sedimentation Rate 16 0-20 MM/HR Troponin I < 0.028 < 0.028 <0.028 NG/ML C-Reactive Protein High Sensitivity 1.03 H 0.00-0.50 MG/DL White Blood Count 6.4 4.3-11.0 10^3/uL Red Blood Count 4.12 3.80-5.11 10^6/uL Hemoglobin 11.7 11.5-16.0 g/dL Hematocrit 37 35-52 % Mean Corpuscular Volume 90 80-99 fL Mean Corpuscular Hemoglobin 28 25-34 pg Mean Corpuscular Hemoglobin Concent 32 32-36 g/dL Red Cell Distribution Width 14.7 H 10.0-14.5 % Platelet Count 261 130-400 10^3/uL Mean Platelet Volume 10.6 9.0-12.2 fL Immature Granulocyte % (Auto) 0 % Neutrophils (%) (Auto) 58 42-75 % Lymphocytes (%) (Auto) 30 12-44 % Monocytes (%) (Auto) 6 0-12 % Eosinophils (%) (Auto) 5 0-10 % Basophils (%) (Auto) 1 0-10 % Neutrophils # (Auto) 3.7 1.8-7.8 10^3/uL Lymphocytes # (Auto) 2.0 1.0-4.0 10^3/uL Monocytes # (Auto) 0.4 0.0-1.0 10^3/uL Eosinophils # (Auto) 0.3 0.0-0.3 10^3/uL Basophils # (Auto) 0.0 0.0-0.1 10^3/uL Immature Granulocyte # (Auto) 0.0 0.0-0.1 10^3/uL Sodium Level 139 135-145 MMOL/L Potassium Level 4.3 3.6-5.0 MMOL/L Chloride Level 108 H 98-107 MMOL/L Carbon Dioxide Level 22 21-32 MMOL/L Anion Gap 9 5-14 MMOL/L Blood Urea Nitrogen 14 7-18 MG/DL Creatinine 0.70 0.60-1.30 MG/DL Estimat Glomerular Filtration Rate 113 BUN/Creatinine Ratio 20 Glucose Level 94 70-105 MG/DL Calcium Level 8.5 8.5-10.1 MG/DL Corrected Calcium 9.1 8.5-10.1 MG/DL Total Bilirubin 0.2 0.1-1.0 MG/DL Aspartate Amino Transf (AST/SGOT) 12 5-34 U/L Alanine Aminotransferase (ALT/SGPT) 13 0-55 U/L Alkaline Phosphatase 62 40-136 U/L Total Protein 5.8 L 6.4-8.2 GM/DL Albumin 3.2 3.2-4.5 GM/DL Triglycerides Level 133 <150 MG/DL Cholesterol Level 183 < 200 MG/DL LDL Cholesterol Direct 137 H 1-129 MG/DL VLDL Cholesterol 27 5-40 MG/DL HDL Cholesterol 32 L 40-60 MG/DL Radiology ECHOCARDIOGRAM (08/09/2021): 1. This is a technically difficult study due to poor image quality secondary to patient's body habitus. 2. Left ventricle: The cavity size is normal. Wall thickness is normal. Systolic function is normal. The estimated ejection fraction is 55-60%. Regional wall motion abnormalities cannot be excluded due to poor endocardial definition. Left ventricular diastolic function parameters are normal. 3. Right atrium: The right atrium is mildly dilated with an area of 19 cm. 4. Pulmonary arteries: The estimated pulmonary artery systolic pressure is 33 mmHg assuming a right atrial pressure of 5 mmHg. 5. Pericardium, extracardiac: There is a trivial anterior pericardial effusion. TREADMILL NUCLEAR STRESS TEST (08/09/2021): 1. Normal heart rate and blood pressure response to exercise. 2. The patient had chest discomfort at rest that got worse during exercise and improved during rest but did not resolve. 3. There were no arrhythmias or electrocardiogram changes during the test. 4. The patient exhibited poor exercise capacity for age at 5 minutes and 15 s econds of the Codey protocol although at 4 minutes, the treadmill was slowed down and incline was set to 0. 5. There was normal myocardial perfusion in all segments without evidence of infarction or ischemia. 6. There was normal wall motion in all segments with a calculated ejection fraction of 72%. CT ANGIOGRAPHY OF THE CHEST WITH CONTRAST (08/08/2021): 1. No CTA evidence of pulmonary embolism or other acute abnormality within the thorax. Diagnosis/Problems Diagnosis/Problems (1) Chest pain Assessment & Plan: This may be due to pericarditis. She has had 2 undetectable troponin levels. Her chest CT did not show any evidence of pulmonary embolism or any other abnormality to explain chest pain. Her electrocardiograms are unremarkable. Her nuclear stress test was normal and her echocardiogram showed a trivial pericardial effusion. Her CRP level was elevated. I recommend we treat her for a presumptive diagnosis of pericarditis. From a cardiac standpoint, she can be discharged home. I have asked her to call my office on Thursday to schedule a follow-up appointment in approximately 2 weeks. Thursday is August 12 hol. (2) Pericarditis Assessment & Plan: As above, her echocardiogram showed a trivial anterior pericardial effusion and she has an elevated CRP level. These findings could be consistent with pericarditis. Since we did not find any other etiology for chest discomfort, I will treat her with colchicine and high-dose ibuprofen for a presumptive diagnosis of pericarditis. (3) Cigarette smoker within last 12 months Assessment & Plan: She just quit smoking 3 days ago. I encouraged her to continue her best efforts at long-term smoking cessation. (4) Morbid obesity Assessment & Plan: She needs to work on weight loss. Problem Qualifiers (1) Chest pain: Chest pain type: unspecified Qualified Codes: R07.9 - Chest pain, unspecified MARIA DEL CARMEN LO JR, MD Aug 09, 2021 16:04
[2021-08-09] MEDS ORDERED: IBUPROFEN 600 MG (MOTRIN) TAB PO NR (16:45)
[2021-08-09] MEDS ORDERED: COLCHICINE 0.6 MG (COLCRYS) TABLET PO ONE (16:45)
[2021-08-09] MEDS ORDERED: IBUP-844 PO (17:00)
[2021-08-09] MEDS ORDERED: COLC0.6T53 PO (17:00)
[2021-08-09] MEDS ORDERED: COLCHICINE 0.6 MG (COLCRYS) TABLET PO NR (17:00)
[2021-08-09] MEDS ORDERED: LIDOCAINE PATCH REMOVAL TP SCH (21:00)
[2021-08-09] MEDS ORDERED: IBUPROFEN 600 MG (MOTRIN) TAB PO SCH (21:00)
[2021-08-10] MEDS ORDERED: COLCHICINE 0.6 MG (COLCRYS) TABLET PO SCH ×2 (09:00)
== END 2021-08-09 17:20 | disposition home or self-care (01) ==
LOC: EDUNIT# 08:50 → ER 08:52 → UNDOADMOB 15:58 → CSD 15:58 → UNDODISOB 08-09 17:30
PROVIDERS: ADMIT Internal Medicine; ATTEND Internal Medicine
DX: R07.89 Other chest pain (principal); E66.01 Morbid (severe) obesity due to excess calories; Z68.41 Body mass index [BMI] 40.0-44.9, adult; Z87.891 Personal history of nicotine dependence; Z82.49 Family history of ischemic heart disease and other diseases of the circulatory system
CPT/HCPCS: 71045; 71275; 78452; 80053 ×2; 80061; 82947; 83735; 83874; 84484 ×2; 85025 ×2; 85379; 85610; 85652; 85730; 86141; 93005 ×2; 93017; 93041; 93306; 96361; 96372 ×2; 96374; 96375 ×2; 96376 ×2; 99284; A9502; G0378; 36415

== ENCOUNTER 2021-09-20 23:01 | Emergency (ER) | payer MEDICAID ==
[~2021-09-20 23:01] MED LIST changes: +ACET-11 PO; +COLC0.6T53 PO; -LEVO-55 PO; +LEVO500T81 PO
[2021-09-20] MEDS ORDERED: ASPIRIN 81 MG CHEW (CHILDREN'S ASA) PO ONE (23:15)
[2021-09-20] MEDS ORDERED: NITROGLYCERIN 0.4 MG SL TABS BTL 25'S SL PRN (23:15)
[2021-09-20] MEDS ORDERED: LACTATED RINGERS 1,000 ML IV ONE (23:30)
[2021-09-20] MEDS ORDERED: ONDANSETRON 4 MG/2 ML (SDV) Z0FRAN IVP ONE (23:30)
[2021-09-20] MEDS ORDERED: PANTOPRAZOLE 40 MG (PROTONIX) VIAL IV ONE (23:30)
[2021-09-20 23:32] LABS: BASOPHILS # (AUTO) 0.1 10^3/uL (0.0-0.1); BASOPHILS % (AUTO) 1 % (0-10); EOSINOPHILS # (AUTO) 0.3 10^3/uL (0.0-0.3); EOSINOPHILS % (AUTO) 4 % (0-10); HEMATOCRIT 42 % (35-52); HEMOGLOBIN 13.4 g/dL (11.5-16.0); LYMPHOCYTES # (AUTO) 2.2 10^3/uL (1.0-4.0); LYMPHOCYTES % (AUTO) 29 % (12-44); MEAN CORPUSCULAR HEMOGLOBIN 28 pg (25-34); MEAN CORPUSCULAR HGB CONC 32 g/dL (32-36); MEAN CORPUSCULAR VOLUME 87 fL (80-99); MEAN PLATELET VOLUME 11.5 fL (9.0-12.2); MONOCYTES # (AUTO) 0.6 10^3/uL (0.0-1.0); MONOCYTES % (AUTO) 7 % (0-12); NEUTROPHILS # (AUTO) 4.3 10^3/uL (1.8-7.8); NEUTROPHILS % (AUTO) 58 % (42-75); PLATELET COUNT 278 10^3/uL (130-400); WHITE BLOOD COUNT 7.5 10^3/uL (4.3-11.0)
[2021-09-20 23:50] LABS: POTASSIUM 3.9 MMOL/L (3.6-5.0)
[2021-09-20 23:52] LABS: TOTAL PROTEIN 7.3 GM/DL (6.4-8.2)
[2021-09-20 23:54] LABS: BILIRUBIN,TOTAL 0.2 MG/DL (0.1-1.0)
[2021-09-20 23:56] LABS: CREATININE SERUM 0.81 MG/DL (0.60-1.30)
[2021-09-20 23:58] LABS: INR 0.9 (0.8-1.4); PROTHROMBIN TIME PATIENT 12.4 SEC (12.2-14.7)
[2021-09-20 23:59] LABS: MAGNESIUM 1.8 MG/DL (1.6-2.4)
[2021-09-21] MEDS ORDERED: PANT40TA2 PO (00:56)
[2021-09-21] MEDS ORDERED: SUCR1TAB36 PO (00:56)
[2021-09-21] MEDS ORDERED: ONDA4TAB11 PO (00:56)
--- NOTE | 2021-09-21 00:56 | ED Chest Pain ---
General Chief Complaint: Chest Pain Stated Complaint: CP Nursing Triage Note: TO ED VIA POV AND AMBULATORY TO ROOM 6 WITH C/O CP SINCE YESTERDAY. TONIGHT WHEN SHE WENT TO LAY DOWN FOR BED SHE STATES IT GOT MUCH WORSE. DEEP BREATHING MAKES IT WORSE. DENIES SOA. PAIN IS CENTER OF CHEST AND RADIATES TO BACK. N/V/D. Allergies and Home Medications Allergies Coded Allergies: amoxicillin (Verified Allergy, Unknown, 08/20/05) cephalexin (Verified Allergy, Unknown, 08/20/05) latex (Verified Allergy, Unknown, 05/31/07) Patient Home Medication List Acetaminophen with Codeine (Acetaminophen-Cod #3 Tablet) 300 Mg-30 Mg Tablet, 1 EA PO Q6H PRN for PAIN-MODERATE (5-7), (Reported) Entered as Reported by: VALDO NEGRETE on 08/09/21 1209 Colchicine (Colcrys) 0.6 Mg Tablet, 1 MG PO DAILY Prescribed by: MARIA DEL CARMEN LO JR, MD on 08/09/21 1700 Ibuprofen (Ibu) 600 Mg Tablet, 600 MG PO TID Prescribed by: MARIA DEL CARMEN LO JR, MD on 08/09/21 1700 Past Ofinyhx-Gvgmqg-Mkqxld Hx Patient Social History Tobacco Use?: Yes Tobacco type used: Cigarettes Smoking Status: Former Smoker Substance use?: No Alcohol Use?: No Immunizations Up To Date Tetanus Booster (TDap): Unknown PED Vaccines UTD: Yes Seasonal Allergies Seasonal Allergies: No Past Medical History Surgery/Hospitalization HX: renal sx, tubal, asthma, dental caries Surgeries: Yes (kidney surgery as an . Bilateral salpingectomy) Renal Respiratory: Yes (Asthma as a child) Asthma Cardiac: No Neurological: No Reproductive Disorders: No Female Reproductive Disorders: Denies Sexually Transmitted Disease: No HIV/AIDS: No Genitourinary: Yes (Kidney surgery as , decreased function in right kidney) Gastrointestinal: No Musculoskeletal: No Endocrine: No Hyperthyroidism HEENT: No Cancer: No Did You Recieve Any Treatments: Yes Psychosocial: No Integumentary: No Blood Disorders: No Adverse Reaction/Blood Tranf: No Family Medical History Cancer (breast cancer- fathers side) Family history: Cardiovascular disease (paternal grandfather) Stroke (maternal grandfather) CAD Under 55 Years Old Physical Exam Vital Signs Vital Signs - First Documented Capillary Refill : Less Than 3 Seconds Height, Weight, BMI Height: 5'6.00" Weight: 235lbs. 0oz. [id number]; 41.28 BMI Method:Stated Progress/Results/Core Measures Results/Orders Lab Results Laboratory Tests Test 09/20/21 23:20 Range/Units White Blood Count 7.5 4.3-11.0 10^3/uL Red Blood Count 4.75 3.80-5.11 10^6/uL Hemoglobin 13.4 11.5-16.0 g/dL Hematocrit 42 35-52 % Mean Corpuscular Volume 87 80-99 fL Mean Corpuscular Hemoglobin 28 25-34 pg Mean Corpuscular Hemoglobin Concent 32 32-36 g/dL Red Cell Distribution Width 13.9 10.0-14.5 % Platelet Count 278 130-400 10^3/uL Mean Platelet Volume 11.5 9.0-12.2 fL Immature Granulocyte % (Auto) 0 % Neutrophils (%) (Auto) 58 42-75 % Lymphocytes (%) (Auto) 29 12-44 % Monocytes (%) (Auto) 7 0-12 % Eosinophils (%) (Auto) 4 0-10 % Basophils (%) (Auto) 1 0-10 % Neutrophils # (Auto) 4.3 1.8-7.8 10^3/uL Lymphocytes # (Auto) 2.2 1.0-4.0 10^3/uL Monocytes # (Auto) 0.6 0.0-1.0 10^3/uL Eosinophils # (Auto) 0.3 0.0-0.3 10^3/uL Basophils # (Auto) 0.1 0.0-0.1 10^3/uL Immature Granulocyte # (Auto) 0.0 0.0-0.1 10^3/uL Prothrombin Time 12.4 12.2-14.7 SEC INR Comment 0.9 0.8-1.4 Activated Partial Thromboplast Time 31 24-35 SEC D-Dimer 0.35 0.00-0.49 UG/ML Sodium Level 134 L 135-145 MMOL/L Potassium Level 3.9 3.6-5.0 MMOL/L Chloride Level 104 98-107 MMOL/L Carbon Dioxide Level 21 21-32 MMOL/L Anion Gap 9 5-14 MMOL/L Blood Urea Nitrogen 10 7-18 MG/DL Creatinine 0.81 0.60-1.30 MG/DL Estimat Glomerular Filtration Rate 95 BUN/Creatinine Ratio 12 Glucose Level 95 70-105 MG/DL Calcium Level 9.0 8.5-10.1 MG/DL Corrected Calcium 9.0 8.5-10.1 MG/DL Magnesium Level 1.8 1.6-2.4 MG/DL Total Bilirubin 0.2 0.1-1.0 MG/DL Aspartate Amino Transf (AST/SGOT) 16 5-34 U/L Alanine Aminotransferase (ALT/SGPT) 21 0-55 U/L Alkaline Phosphatase 71 40-136 U/L Total Creatine Kinase 84 29-168 U/L Creatine Kinase MB 1.0 <6.6 NG/ML Myoglobin 35.9 10.0-92.0 NG/ML Troponin I < 0.028 <0.028 NG/ML B-Type Natriuretic Peptide < 10.0 <100.0 PG/ML Total Protein 7.3 6.4-8.2 GM/DL Albumin 4.0 3.2-4.5 GM/DL Amylase Level 33 25-125 U/L Lipase 21 8-78 U/L Serum Test, Qualitative NEGATIVE NEGATIVE Influenza Type A (RT-PCR) Not Detected Not Detecte Influenza Type B (RT-PCR) Not Detected Not Detecte SARS-CoV-2 RNA (RT-PCR) Not Detected Not Detecte My Orders Orders - SARAH CORNELL DO Cbc With Automated Diff (09/20/21 23:10) Magnesium (09/20/21 23:10) Ekg Tracing (09/20/21 23:10) Comprehensive Metabolic Panel (09/20/21 23:10) Myoglobin Serum (09/20/21 23:10) Protime With Inr (09/20/21 23:10) Partial Thromboplastin Time (09/20/21 23:10) O2 (09/20/21 23:10) Monitor-Rhythm Ecg Trace Only (09/20/21 23:10) Ed Iv/Invasive Line Start (09/20/21 23:10) Creatine Kinase (09/20/21 23:10) Creatine Kinase Mb (09/20/21 23:10) Lipase (09/20/21 23:10) Amylase (09/20/21 23:10) Bnp Chase (09/20/21 23:10) Fibrin Degradation Products (09/20/21 23:10) Troponin I Vickie (09/20/21 23:10) Nitroglycerin 0.4 Mg Btl 25's (Nitrostat (09/20/21 23:15) Aspirin Chewable Tablet (Baby Aspirin Ch (09/20/21 23:15) Hcg,Qualitative Serum (09/20/21 23:10) Ed Iv/Invasive Line Start (09/20/21 23:18) Lactated Ringers (Lr 1000 Ml Iv Solution (09/20/21 23:30) Ondansetron Injection (Zofran Injectio (09/20/21 23:30) Covid 19 Inhouse Test (09/20/21 23:18) Influenza A And B By Pcr (09/20/21 23:18) Isolation Central Supply Req (09/20/21 23:18) Pantoprazole Injection (Protonix Injecti (09/20/21 23:30) Chest 1 View, Ap/Pa Only (09/21/21 00:01) Medications Given in ED Current Medications Medications Dose Ordered Sig/Jayesh Route Start Time Stop Time Status Last Admin Dose Admin Aspirin 324 mg ONCE ONCE PO 09/20/21 23:15 09/20/21 23:16 DC 09/20/21 23:19 324 MG Lactated Ringer's 1,000 ml @ 0 mls/hr Q0M ONCE IV 09/20/21 23:30 09/20/21 23:31 DC 09/20/21 23:41 999 MLS/HR Ondansetron HCl 4 mg ONCE ONCE IVP 09/20/21 23:30 09/20/21 23:31 DC 09/20/21 23:40 4 MG Pantoprazole 40 mg ONCE ONCE IV 09/20/21 23:30 09/20/21 23:31 DC 09/20/21 23:40 40 MG Vital Signs/I&O 09/20/21 09/20/21 23:28 23:28 Temp 36.6 Pulse 82 Resp 18 B/P (MAP) 129/66 (87) Pulse Ox 99 O2 Delivery Room Air Room Air Blood Pressure Mean: 87 Progress Progress Note : Progress Note SYMPTOMS RESOLVED WITH ZOFRAN AND PROTONIX Departure Impression Primary Impression: Chest pain Additional Impression: Gastroesophageal reflux disease Disposition: 01 HOME, SELF-CARE Condition: Improved Departure-Patient Inst. Decision time for Depature: 00:54 Referrals: SHIVA LANCE MD (PCP/Family) Primary Care Physician MARIA DEL CARMEN LO JR, MD Patient Instructions: Acid Reflux and GERD in Adults (DC), Chest Pain, Adult ED Add. Discharge Instructions: CONTINUE YOUR REGULAR MEDICATIONS PRESCRIBED FOLLOW UP WITH [facility] NEXT WEEK FOR FURTHER CARE KEEP YOUR APPOINTMENT WITH DR. LO THIS MONTH, OR FOLLOW UP SOONER IF NEEDED All discharge instructions reviewed with patient and/or family. Voiced understanding. Scripts Ondansetron (Ondansetron Odt) 4 Mg Tab.rapdis 4 MG PO Q4H for Nausea/Vomiting, #10 TAB Prov: SARAH CORNELL DO 09/21/21 Sucralfate (Carafate) 1 Gram Tablet 1 GM PO QID, #60 TAB Prov: ANETASARAH K DO 09/21/21 Pantoprazole Sodium (Protonix) 40 Mg Tablet.dr 40 MG PO DAILY, #15 TAB Prov: ANETASARAH K DO 09/21/21 ANETASARAH K DO Sep 21, 2021 00:56
[2021-09-21 01:13] VITALS: BP 109/80
--- NOTE | 2021-09-21 07:23 | Diagnostic Imaging Report ---
EXAMINATION: Chest 1 view HISTORY: Chest pain COMPARISON: 08/08/2021 FINDINGS: The lungs are clear without edema or pneumonia. No pleural effusion or pneumothorax. Heart size is normal. Calcified granulomas present in the right lung. IMPRESSION: 1. Clear lungs. Dictated by: Dictated on workstation # [id number]
== END 2021-09-21 01:15 | disposition home or self-care (01) ==
LOC: EDUNIT# 23:01 → ER 23:02
DX: K21.9 Gastro-esophageal reflux disease without esophagitis (principal); F17.210 Nicotine dependence, cigarettes, uncomplicated; Z91.040 Latex allergy status; Z20.822 Contact with and (suspected) exposure to COVID-19
CPT/HCPCS: 36415; 71045; 80053; 82150; 82550; 82553; 83690; 83735; 83874; 83880; 84484; 84703; 85025; 85379; 85610; 85730; 87636; 93005; 93041

== ENCOUNTER 2021-10-29 22:37 | Emergency (ER) | payer MEDICAID ==
[~2021-10-29 22:37] MED LIST changes: +LEVO-55 PO; -LEVO500T81 PO; +PANT40TA2 PO; +SUCR1TAB36 PO
[2021-10-29] MEDS ORDERED: CLIN-144 PO (22:54)
--- NOTE | 2021-10-29 22:55 | ED General ---
General Chief Complaint: Dental Problems/Pain Stated Complaint: TOOTHACHE Nursing Triage Note: DENTAL PAIN ON LEFT UPPER SIDE. HX OF BROKEN TEETH. PAIN AT 8/10. PT ARRIVAL TO ER WITH COMPLAINT DENTAL PAIN X2 DAYS. IBUPROFEN AT HOME WITH SOME RELIEF. Source of Information: Patient Exam Limitations: No Limitations History of Present Illness Date Seen by Provider: Oct 29, 2021 Time Seen by Provider: 22:40 Initial Comments 41-year-old female presents for left upper dental pain. She states she had a chipped tooth there for a while. It started hurting her this afternoon. She has had to have multiple other teeth pulled due to dental caries that got infected. No fevers or chills. Hurts to bite down but she is having no difficulty swallowing or voice changes, trismus. Allergies and Home Medications Allergies Coded Allergies: amoxicillin (Verified Allergy, Unknown, 08/20/05) cephalexin (Verified Allergy, Unknown, 08/20/05) latex (Verified Allergy, Unknown, 05/31/07) Patient Home Medication List Home Medication List Reviewed: Yes Acetaminophen with Codeine (Acetaminophen-Cod #3 Tablet) 300 Mg-30 Mg Tablet, 1 EA PO Q6H PRN for PAIN-MODERATE (5-7), (Reported) Entered as Reported by: VALDO NEGRETE on 08/09/21 1209 Colchicine (Colcrys) 0.6 Mg Tablet, 1 MG PO DAILY Prescribed by: MARIA DEL CARMEN LO JR, MD on 08/09/21 1700 Ibuprofen (Ibu) 600 Mg Tablet, 600 MG PO TID Prescribed by: MARIA DEL CARMEN LO JR, MD on 08/09/21 1700 Ondansetron (Ondansetron Odt) 4 Mg Tab.rapdis, 4 MG PO Q4H Prescribed by: SARAH CORNELL on 09/21/2155 Pantoprazole Sodium (Protonix) 40 Mg Tablet.dr, 40 MG PO DAILY Prescribed by: SARAH CORNELL on 09/21/2155 Sucralfate (Carafate) 1 Gram Tablet, 1 GM PO QID Prescribed by: SARAH CORNELL on 09/21/2155 Review of Systems Review of Systems Constitutional: no symptoms reported EENTM: other (Left upper dental pain) Respiratory: no symptoms reported Cardiovascular: no symptoms reported Gastrointestinal: no symptoms reported Genitourinary: no symptoms reported Musculoskeletal: no symptoms reported Skin: no symptoms reported Psychiatric/Neurological: No Symptoms Reported Hematologic/Lymphatic: No Symptoms Reported Immunological/Allergic: no symptoms reported Past Dsmtrgj-Rnxirt-Dqzdba Hx Patient Social History Tobacco Use?: Yes Tobacco type used: Cigarettes Smoking Status: Current Everyday Smoker Use of E-Cig and/or Vaping dev: No Substance use?: No Alcohol Use?: No Pt feels they are or have been: No Immunizations Up To Date Tetanus Booster (TDap): Unknown PED Vaccines UTD: Yes Influenza Vaccine Up-to-Date: Yes; Up-to-Date Seasonal Allergies Seasonal Allergies: No Past Medical History Surgery/Hospitalization HX: renal sx, tubal, asthma, dental caries Surgeries: Yes (kidney surgery as an infant. Bilateral salpingectomy) Renal, Tubal Ligation Respiratory: Yes (Asthma as a child) Asthma Cardiac: No Neurological: No Reproductive Disorders: No Female Reproductive Disorders: Denies Sexually Transmitted Disease: No HIV/AIDS: No Genitourinary: Yes (Kidney surgery as , decreased function in right kidney) Gastrointestinal: No Musculoskeletal: No Endocrine: No Hyperthyroidism HEENT: No Cancer: No Did You Recieve Any Treatments: Yes Psychosocial: No Integumentary: No Blood Disorders: No Adverse Reaction/Blood Tranf: No Family Medical History Reviewed Nursing Family Hx Cancer (breast cancer- fathers side) Family history: Cardiovascular disease (paternal grandfather) Stroke (maternal grandfather) CAD Under 55 Years Old SOCIAL HISTORY: -SMOKED 1 PPD, QUIT 07/2021 -DENIES ETOH -DENIES DRUG USE Physical Exam Vital Signs Vital Signs - First Documented 10/29/21 22:46 Pulse 81 Resp 20 B/P (MAP) 163/117 (132) Pulse Ox 98 O2 Delivery Room Air Capillary Refill : Less Than 3 Seconds Height, Weight, BMI Height: 5'6.00" Weight: 235lbs. 0oz. 106.022679sz; 41.28 BMI Method:Stated General Appearance: No Apparent Distress, WD/WN HEENT: PERRL/EOMI, TMs Normal, Normal ENT Inspection, Pharynx Normal, Other (Tenderness palpation left upper premolar. There is a dental carry in this area. No fluctuant abscess.) Neck: Normal Inspection, Non Tender, Supple Respiratory: Chest Non Tender, Lungs Clear, Normal Breath Sounds, No Accessory Muscle Use, No Respiratory Distress Cardiovascular: Regular Rate, Rhythm, No Edema, No Gallop, No JVD, No Murmur, Normal Peripheral Pulses Gastrointestinal: Normal Bowel Sounds, No Organomegaly, No Pulsatile Mass, Non Tender, Soft Extremity: Normal Capillary Refill, Normal Inspection, Normal Range of Motion, Non Tender, No Calf Tenderness Skin: Normal Color, Warm/Dry Progress/Results/Core Measures Suspected Sepsis SIRS Temperature: Pulse: 81 Respiratory Rate: 20 Blood Pressure 163 /117 Mean: 132 Results/Orders My Orders Orders - MASSIMO CABRERA DO Ketorolac Injection (Toradol Injection) (10/29/21 23:00) Hydrocodone/Apap 5/325 Tablet (Lortab 5 (10/29/21 23:00) Vital Signs/I&O 10/29/21 22:46 Pulse 81 Resp 20 B/P (MAP) 163/117 (132) Pulse Ox 98 O2 Delivery Room Air Capillary Refill : Less Than 3 Seconds Blood Pressure Mean: 132 Departure Communication (Admissions) Patient is hemodynamically stable. No drainable abscess. Given IM Toradol, hydrocodone here. Discharged with [id number] recommendations for pain control and dental follow-up, antibiotics. Discharged in stable condition. Impression Primary Impression: Dental caries Disposition: HOME, SELF-CARE Condition: Stable Departure-Patient Inst. Referrals: SHIVA LANCE MD (PCP/Family) Primary Care Physician Patient Instructions: Dental Pain Add. Discharge Instructions: supervisor hot dip plating the antibiotics and take them as prescribed until they are gone. Use Advil liquid gel as discussed. Follow-up with a call to schedule an appointment with a dentist. All discharge instructions reviewed with patient and/or family. Voiced understanding. Scripts Clindamycin HCl (Clindamycin HCl) 300 Mg Capsule 300 MG PO TID for 7 Days, #21 CAP Prov: MASSIMO CABRERA DO 10/29/21 MASSIMO CABRERA DO Oct 29, 2021 22:55
[2021-10-29] MEDS ORDERED: HYDROcodone/APAP 5 MG/325 MG (LORTAB) TAB PO ONE (23:00)
[2021-10-29] MEDS ORDERED: KETOROLAC 60 MG/2 ML VIAL IM ONE (23:00)
[2021-10-29 23:07] VITALS: BP 145/95
[2021-10-29] MEDS ORDERED: CLINDAMYCIN 150 MG (CLEOCIN) CAP PO ONE (23:15)
== END 2021-10-29 23:05 | disposition home or self-care (01) ==
LOC: EDUNIT# 22:37 → ER 22:39
DX: K02.9 Dental caries, unspecified (principal); F17.210 Nicotine dependence, cigarettes, uncomplicated; Z91.040 Latex allergy status; Z28.310 Unvaccinated for COVID-19
CPT/HCPCS: 99284

== ENCOUNTER 2022-08-12 08:47 | Emergency (ER) | payer MEDICAID ==
[~2022-08-12] VITALS: Ht 167.7 cm; Wt 104.3 kg
[~2022-08-12 08:47] MED LIST changes: +ALBU8.5H6 IH
[2022-08-12] MEDS ORDERED: ACHD5005 PO (09:14)
--- NOTE | 2022-08-12 09:14 | ED Integumentary General ---
General Chief Complaint: Skin/Wound Problems Stated Complaint: LUMP UNDER RT ARM Nursing Triage Note: PT AMBULATE TO ROOM WITHOUT DIFFICULTY WITH C/O ABSCESS UNDER RIGHT ARM THAT STARTED TODAY. PT REPORTS SHOWING YESTERDAY AND DID NOT NOTICE IT AT THAT TIME. Source: patient Exam Limitations: no limitations History of Present Illness Date Seen by Provider: Aug 12, 2022 Time Seen by Provider: 09:05 Initial Comments Patient is a 42-year-old female who presents to the emergency room with a chief complaint of noticing a "lump" under her right arm this morning. She states she initially noticed a red area yesterday. It was quite tender and larger this morning. She has never had anything like this before. She is not a diabetic. She denies any trauma. No fevers or chills. No drainage from the area. She has not taken anything for the pain. Timing/Duration: this morning Severity: moderate Location: extremities (right axilla) Possible Cause: no cause identified Associated Symptoms: swelling/mass/lumps Allergies and Home Medications Allergies Coded Allergies: amoxicillin (Verified Allergy, Unknown, 08/20/05) cephalexin (Verified Allergy, Unknown, 08/20/05) latex (Verified Allergy, Unknown, 05/31/07) Patient Home Medication List Home Medication List Reviewed: Yes Acetaminophen with Codeine (Acetaminophen-Cod #3 Tablet) 300 Mg-30 Mg Tablet, 1 EA PO Q6H PRN for PAIN-MODERATE (5-7), (Reported) Entered as Reported by: VALDO NEGRETE on 08/09/21 1209 Clindamycin HCl (Clindamycin HCl) 300 Mg Capsule, 300 MG PO TID Prescribed by: MASSIMO CABRERA MD on 10/29/21 2254 Colchicine (Colcrys) 0.6 Mg Tablet, 1 MG PO DAILY Prescribed by: MARIA DEL CARMEN LO JR, MD on 08/09/21 1700 Hydrocodone/Acetaminophen (Hydrocodone-Acetamin 5-325 mg) 5 Mg-325 Mg Tablet, 1 TAB PO Q6H PRN for PAIN-BREAKTHROUGH Prescribed by: DONALDO HAHN on 08/12/22 0914 Ibuprofen (Ibu) 600 Mg Tablet, 600 MG PO TID Prescribed by: MARIA DEL CARMEN LO JR, MD on 08/09/21 1700 Ondansetron (Ondansetron Odt) 4 Mg Tab.rapdis, 4 MG PO Q4H Prescribed by: SARAH CORNELL on 09/21/2155 Pantoprazole Sodium (Protonix) 40 Mg Tablet.dr, 40 MG PO DAILY Prescribed by: SARAH CORNELL on 09/21/2155 Sucralfate (Carafate) 1 Gram Tablet, 1 GM PO QID Prescribed by: SARAH CORNELL on 09/21/2155 Review of Systems Review of Systems Constitutional: see HPI Respiratory: no symptoms reported Cardiovascular: no symptoms reported Gastrointestinal: no symptoms reported Genitourinary: no symptoms reported Musculoskeletal: no symptoms reported Skin: other ("lump" under arm pit) Past Ewhbxqu-Moeilh-Hhdxnh Hx Patient Social History Tobacco Use?: Yes Smoking Status: Current Everyday Smoker Smokeless Tobacco Frequency: Never a User Use of E-Cig and/or Vaping dev: No Use of E-Cig and/or Vaping Ashwin: Never a User Substance use?: No Alcohol Use?: No Pt feels they are or have been: No Immunizations Up To Date Tetanus Booster (TDap): Unknown PED Vaccines UTD: Yes Seasonal Allergies Seasonal Allergies: No Past Medical History Surgery/Hospitalization HX: renal sx, tubal, asthma, dental caries Surgeries: Yes (kidney surgery as an infant. 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) Gastrointestinal: No Musculoskeletal: No Endocrine: No Hyperthyroidism HEENT: No Cancer: No Did You Recieve Any Treatments: Yes Psychosocial: No Integumentary: No Blood Disorders: No Adverse Reaction/Blood Tranf: No Family Medical History Cancer (breast cancer- fathers side) Family history: Cardiovascular disease (paternal grandfather) Stroke (maternal grandfather) CAD Under 55 Years Old SOCIAL HISTORY: -SMOKED 1 PPD, QUIT 07/2021 -DENIES ETOH -DENIES DRUG USE Physical Exam Vital Signs Vital Signs - First Documented 08/12/22 08/12/22 08:58 09:50 Temp 37.0 Pulse 90 Resp 16 B/P (MAP) 138/86 (103) Pulse Ox 98 O2 Delivery Room Air Capillary Refill : Less Than 3 Seconds General Appearance: WD/WN, no apparent distress, obese HEENT: PERRL/EOMI Cardiovascular: regular rate, rhythm Respiratory: no respiratory distress, no accessory muscle use Extremities: normal range of motion, normal inspection Neurologic/Psychiatric: alert, normal mood/affect, oriented x 3 Skin: normal color, warm/dry, other (small 3-4cm abscess anterior right axilla with about a 1.5cm area of fluctuance. tender to touch. slightly warm) Procedures/Interventions I&D : Blade Size: 11 I & D Procedure: betadine prep Packing/Drain: Plain Packing 1/2 (1/4 inch) Progress copious amounts of purulent material expressed. Irrigated well until clear. Progress/Results/Core Measures Results/Orders My Orders Orders - DONALDO HAHN MD Ibuprofen Tablet (Motrin Tablet) (08/12/22 09:15) Lidocaine/Epi Mpf 2% 1:200,000 (Xylocain (08/12/22 09:15) Wound Culture (08/12/22 09:15) Lidocaine 2% Bolus Syringe (Xylocaine Luis (08/12/22 09:18) Lidocaine/Epi Mpf 2% 1:200,000 (Xylocain (08/12/22 09:21) Medications Given in ED Current Medications Medications Dose Ordered Sig/Jayesh Route Start Time Stop Time Status Last Admin Dose Admin Ibuprofen 600 mg ONCE ONCE PO 08/12/22 09:15 08/12/22 09:16 DC 08/12/22 09:20 600 MG Lidocaine/ Epinephrine 20 ml STK-MED ONCE .ROUTE 08/12/22 09:21 08/12/22 09:24 DC 08/12/22 09:25 20 ML Vital Signs/I&O 08/12/22 08/12/22 08:58 09:50 Temp 37.0 36.8 Pulse 90 79 Resp 16 16 B/P (MAP) 138/86 (103) 137/86 Pulse Ox 98 O2 Delivery Room Air Room Air Blood Pressure Mean: 103 Departure Impression Primary Impression: Axillary abscess Disposition: 01 HOME, SELF-CARE Condition: Stable Departure-Patient Inst. Decision time for Depature: 09:47 Referrals: SHIVA LANCE MD (PCP/Family) Primary Care Physician Patient Instructions: Boil, Adult ED Add. Discharge Instructions: Keep the area clean, dry and covered. Wash well twice a day with a mild soap and water. Watch the area for increasing redness/swelling. You can expect it to drain for several days. If you develop fever please follow up with your primary care doctor or return to the Emergency Department for re-evaluation. Ibuprofen 3 pills (600mg) every 6 hours with food for pain. Also Hydrocodone 5mg tablets, 1 every 6 hours with 1 extra strength tylenol as needed for more severe pain. Scripts Hydrocodone/Acetaminophen (Hydrocodone-Acetamin 5-325 mg) 5 Mg-325 Mg Tablet 1 TAB PO Q6H PRN for PAIN-BREAKTHROUGH, #8 TAB Prov: DONALDO HAHN MD 08/12/22 Copy Copies To 1: SHIVA LANCE MD, KATHRYN M MD Aug 12, 2022 09:14
[2022-08-12] MEDS ORDERED: LIDOCAINE/EPI 2% 1:200,00 (XYLOCAINE) 10 ML VIAL INJ ONE (09:15)
[2022-08-12] MEDS ORDERED: IBUPROFEN 600 MG (MOTRIN) TAB PO ONE (09:15)
[2022-08-12] MEDS ORDERED: LIDOCAINE BOLUS 100 MG/5 ML (IMS) SYR ONE (09:18)
[2022-08-12] MEDS ORDERED: LIDOCAINE/EPI 2% 1:200,00 (XYLOCAINE) 20 ML VIAL ONE (09:21)
[2022-08-12 09:50] VITALS: BP 137/86
== END 2022-08-12 09:50 | disposition home or self-care (01) ==
LOC: EDUNIT# 08:47 → ER 08:49
DX: L02.411 Cutaneous abscess of right axilla (principal); Z91.040 Latex allergy status; Z87.891 Personal history of nicotine dependence; Z28.310 Unvaccinated for COVID-19
CPT/HCPCS: 87070; 87205; 99283

== ENCOUNTER 2023-01-01 20:26 | Emergency (ER) | payer SELFPAY ==
[~2023-01-01] VITALS: Ht 167.7 cm; Wt 114.8 kg
[2023-01-01] MEDS ORDERED: ONDA8TAB13 SL (20:49)
--- NOTE | 2023-01-01 20:49 | ED GI ---
General Chief Complaint: Abdominal/GI Problems Stated Complaint: STOMACH PAINS, VOMITING, DIAREHHA, LIGHT HEADED Source of Information: Patient Exam Limitations: No Limitations History of Present Illness Date Seen by Provider: Jan 01, 2023 Time Seen by Provider: 20:35 Initial Comments 42-year-old female presents the emergency department today for periumbilical pain, swelling. Symptoms present for a month. Is causing her significant nausea. It is worse with bowel movements or vomiting. She has noticed swelling in her periumbilical region. No skin changes. No fevers or chills. She is having normal bowel movements. All other systems reviewed and negative except documented per HPI. Voice recognition software was used to help create this chart Allergies and Home Medications Allergies Coded Allergies: amoxicillin (Verified Allergy, Unknown, 08/20/05) cephalexin (Verified Allergy, Unknown, 08/20/05) latex (Verified Allergy, Unknown, 05/31/07) Patient Home Medication List Home Medication List Reviewed: Yes Acetaminophen with Codeine (Acetaminophen-Cod #3 Tablet) 300 Mg-30 Mg Tablet, 1 EA PO Q6H PRN for PAIN-MODERATE (5-7), (Reported) Entered as Reported by: VALDO NEGRETE on 08/09/21 1209 Clindamycin HCl (Clindamycin HCl) 300 Mg Capsule, 300 MG PO TID Prescribed by: MASSIMO CABRERA MD on 10/29/21 2254 Colchicine (Colcrys) 0.6 Mg Tablet, 1 MG PO DAILY Prescribed by: MARIA DEL CARMEN LO JR, MD on 08/09/21 1700 Hydrocodone/Acetaminophen (Hydrocodone-Acetamin 5-325 mg) 5 Mg-325 Mg Tablet, 1 TAB PO Q6H PRN for PAIN-BREAKTHROUGH Prescribed by: DONALDO HAHN on 08/12/22 0914 Ibuprofen (Ibu) 600 Mg Tablet, 600 MG PO TID Prescribed by: MARIA DEL CARMEN LO JR, MD on 08/09/21 1700 Ondansetron (Ondansetron Odt) 4 Mg Tab.rapdis, 4 MG PO Q4H Prescribed by: SARAH CORNELL on 09/21/21 0056 Ondansetron (Ondansetron Odt) 8 Mg Tab.rapdis, 8 MG SL Q6H PRN for NAUSEA/VOMITING Prescribed by: MASSIMO CABRERA MD on 01/01/232048 Pantoprazole Sodium (Protonix) 40 Mg Tablet.dr, 40 MG PO DAILY Prescribed by: SARAH CORNELL on 09/21/2155 Sucralfate (Carafate) 1 Gram Tablet, 1 GM PO QID Prescribed by: SARAH CORNELL on 09/21/2155 Review of Systems Review of Systems Constitutional: see HPI Past [id number] Hx Patient Social History Tobacco Use?: No Use of E-Cig and/or Vaping dev: No Substance use?: No Alcohol Use?: No Immunizations Up To Date Tetanus Booster (TDap): Unknown PED Vaccines UTD: Yes Seasonal Allergies Seasonal Allergies: No Past Medical History Surgery/Hospitalization HX: renal sx, tubal, asthma, dental caries Surgeries: Yes (kidney surgery as an . 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) Gastrointestinal: No Musculoskeletal: No Endocrine: No Hyperthyroidism HEENT: No Cancer: No Did You Recieve Any Treatments: Yes Psychosocial: No Integumentary: No Blood Disorders: No Adverse Reaction/Blood Tranf: No Family Medical History Cancer (breast cancer- fathers side) Family history: Cardiovascular disease (paternal grandfather) Stroke (maternal grandfather) CAD Under 55 Years Old SOCIAL HISTORY: -SMOKED 1 PPD, QUIT 07/2021 -DENIES ETOH -DENIES DRUG USE Physical Exam Vital Signs Vital Signs - First Documented 01/01/23 20:36 Temp 36.9 Pulse 97 Resp 20 B/P (MAP) 162/77 (105) Pulse Ox 98 Capillary Refill : Height/Weight/BMI Height: 5'6.00" Weight: 235lbs. 0oz. [id number]; 37.00 BMI Method:Stated General Appearance: WD/WN, no apparent distress HEENT: normal ENT inspection, pharynx normal Respiratory: chest non-tender, lungs clear, normal breath sounds, no respiratory distress, no accessory muscle use Cardiovascular: regular rate, rhythm, no murmur Gastrointestinal: normal bowel sounds, soft, tenderness (Small easily reducible umbilical hernia. There are some mild tenderness. No skin changes.) Extremities: normal range of motion, normal capillary refill Neurologic/Psychiatric: alert, oriented x 3 Progress/Results/Core Measures Results/Orders Vital Signs/I&O 01/01/23 01/01/23 20:36 20:58 Temp 36.9 Pulse 97 99 Resp 20 B/P (MAP) 162/77 (105) 138/72 Pulse Ox 98 98 Departure Communication (Admissions) Patient is hemodynamically stable. She has a clear reducible umbilical hernia without any other complications. This been present for about a month. She is having normal bowel movements and she is nontoxic. There is no overlying skin changes, no evidence for incarceration, strangulation. Recommend general surgery follow-up. Given her restriction precautions for skin changes, severe pain, decreased bowel movements. No indication for imaging or other testing at this time. Impression Primary Impression: Umbilical hernia Qualified Codes: K42.9 - Umbilical hernia without obstruction or gangrene Disposition: HOME, SELF-CARE Condition: Stable Departure-Patient Inst. Referrals: PRECIOUS KNOWLES HOLLY R MD (PCP/Family) Primary Care Physician Patient Instructions: Abdominal Hernia (DC) Add. Discharge Instructions: Use the nausea medicine as prescribed as needed. Use ibuprofen and Tylenol as needed for pain. Follow-up with Dr. Knowles by calling to schedule an appointment. Return to the emergency department for any severe concerns, if you are unable to have a bowel movement or if you have any changes in the skin overlying the area. All discharge instructions reviewed with patient and/or family. Voiced understanding. Scripts Ondansetron (Ondansetron Odt) 8 Mg Tab.rapdis 8 MG SL Q6H PRN for NAUSEA/VOMITING for 5 Days, #20 TAB Prov: MASSIMO CABRERA DO 01/01/23 MASSIMO CABRERA DO Jan 01, 2023 20:49
[2023-01-01 20:58] VITALS: BP 138/72
== END 2023-01-01 20:58 | disposition home or self-care (01) ==
LOC: EDUNIT# 20:26 → ER 20:29
DX: K42.9 Umbilical hernia without obstruction or gangrene (principal); Z87.891 Personal history of nicotine dependence; Z91.040 Latex allergy status
CPT/HCPCS: 99281